=== PATIENT | male | born 1945 | race Caucasian/White ===

== ENCOUNTER 2019-09-04 16:09 | Inpatient (IN) | payer OTHER, SELFPAY ==
[2019-09-04] VITALS (7 sets, daily range): BP systolic 120–139; BP diastolic 44–72; PULSE 54–68; RESP 16–20; TEMP 35.9–36.8; O2SAT 95–100; BMI 34.7
--- NOTE | ~2019-09-04 | XR_ITS ---
EXAMINATION: XR chest 2V 09/04/2019 16:47 INDICATION: Chest palpitations and tachycardia. PROCEDURE: AP and lateral views of the chest COMPARISON: Comparison to multiple prior studies sequentially, with oldest reviewed study dated 08/26. FINDINGS: The lungs are clear. Mild cardiomegaly. There are no pleural effusions. There is no pneumo thorax suspected. IMPRESSION: 1: NO ACUTE CARDIOPULMONARY DISEASE. Reviewed, dictated and finalized at location A.
--- NOTE | ~2019-09-04 | US_ITS ---
EXAMINATION: US venous doppler [facility] DATE: 09/05/2019 14:33 INDICATION: Lower limb swelling. TECHNIQUE: Grayscale ultrasound images without and with compression and Doppler ultrasound images of the bilateral lower extremity veins were obtained. COMPARISON: Ultrasound 09/26/2014 FINDINGS: The visualized portions of right common femoral vein, profunda (deep) femoral vein, femoral vein, pop liteal vein, peroneal veins, posterior tibial veins, and greater saphenous vein outflow are patent. The visualized portions of left common femoral vein, profunda femoral vein, femoral vein, popliteal v ein, peroneal veins, posterior tibial veins, and greater saphenous vein outflow are patent. IMPRESSION: 1. No deep venous thrombosis. Reviewed, dictated and finalized at location A.
--- NOTE | 2019-09-04 16:10 | ECG_ITS ---
Measurements Intervals Holt Rate: 61 P: 56 MA: 246 QRS: -3 QRSD: 114 T: 43 QT: 399 QTc: 404 Interpretive Statements SINUS RHYTHM WITH FIRST DEGREE AV BLOCK INTRAVENTRICULAR CONDUCTION DELAY DELAYED PRECORDIAL R/S TRANSITION ABNORMAL ECG Electronically Signed On 09-05-2019 7:15:39 CDT by Bharathi Dailey D.O.
[2019-09-04 16:28] LABS: Basophils Percent Auto 0.2 % (0.2-1.2); Eosinophils Absolute Auto 0.1 K/mm3 (0-0.3); Eosinophils Percent Auto 0.7 % (0-4.4); Hematocrit 37.5 % (42.0-52.0); Hemoglobin 11.8 g/dL (14.0-18.0); Immature Granulocyte Percent A 0.6 % (0-0.5); Lymphocytes Absolute Auto 5.33 K/mm3 (0.9-3.2); Lymphocytes Percent Auto 30.7 % (18.3-44.2); Mean Corpuscular HGB Conc 31.5 g/dl (32-36); Mean Corpuscular Hemoglobin 31.8 pg (26-34); Mean Corpuscular Volume 101.1 fl (80-100); Mean Platelet Volume 11.2 fl (7.4-10.4); Monocytes Absolute Auto 1.1 K/mm3 (0.1-0.6); Monocytes Percent Auto 6.1 % (2.6-8.5); Neutrophils Absolute Auto 10.7 K/mm3 (1.3-6.7); Neutrophils Percent Auto 61.7 % (45.5-73.1); Platelet Count Result 216 k/mm3 (150-375); Red Blood Count 3.71 M/mm3 (4.6-6.20); White Blood Count 17.4 K/mm3 (4.5-10.0)
[2019-09-04 16:41] LABS: INR 1.1; Partial Thromboplastin Time 28.8 SECONDS (22.3-36.8)
[2019-09-04 16:42] LABS: Blood Urea Nitrogen 65 mg/dL (9-20); Calcium 9.1 mg/dL (8.4-10.2); Carbon Dioxide 22 mmol/L (22-30); Chloride 106 mmol/L (98-107); Estimated CRCL calculation 45 ml/min; Estimated Glomerular Filt Rate 43; Glucose 180 mg/dL (75-110); Sodium 138 mmol/L (137-145)
[2019-09-04 16:57] LABS: Troponin I 0.038 ng/mL (0.000-0.034)
--- NOTE | 2019-09-04 17:48 | ED.GENADULT ---
HPI - General Adult General Chief complaint: Recheck/Abnormal Lab/Rx Stated complaint: elevated HR Time Seen by Provider: 09/04/19 17:38 Source: patient and family Limitations: no limitations History of Present Illness HPI narrative: 73-year-old with a history of hypertension, diabetes, CAD, obstructive sleep apnea, hypercholesteremia, morbid obesity here with complaints of palpitations since this afternoon. Patient states that he was sitting in the chair and took hyoscyamine for bladder spasm soon after his heart started racing and his heart rate was 150. Also complained of minor chest discomfort and mild shortness of breath. However by the time he came to the ER symptoms subsided. He also mentions that he was on metoprolol 50 mg twice a day which they have tapered down to 12.5 mg twice a day as his heart rate was in high 30s. He presently denies any fever or chills. He also mentions that he is scheduled to see Dr. Sarabia tomorrow for catheter change. Onset (ago): hour(s) (4) Location: chest Radiation: non-radiation Severity: moderate Associated symptoms: denies other symptoms Related Data Home Medications Medication Instructions Recorded Confirmed aspirin 81 mg tablet,delayed 81 mg PO DAILY 05/10/19 08/19/19 release nitroglycerin 0.4 mg sublingual 0.4 mg SUBLINGUAL Q5M 05/10/19 08/19/19 tablet omega-3 fatty acids 1,000 mg 1,000 mg PO DAILY 05/10/19 08/19/19 capsule Allergies Allergy/AdvReac Type Severity Reaction Status Date / Time codeine AdvReac Unknown Unknown Verified 05/14/19 08:02 Review of Systems Review of Systems: All systems reviewed & are unremarkable except as noted in HPI and below Constitutional: Constitutional: Reports as per HPI Eyes: Eyes: Reports no additional eye complaints ENT: Reports system reviewed and no additional complaints, except as documented Cardiovascular: Cardiovascular: Reports as per HPI Respiratory: Respiratory: Reports as per HPI Gastrointestinal: Gastrointestinal: Reports no additional gastrointestinal complaints Genitourinary: Genitourinary: Reports as per HPI Musculoskeletal: Musculoskeletal: Reports no additional musculoskeletal complaints Integumentary/Breasts: Skin/Breast: Reports system reviewed and no additional complaints, except as docu Neurologic: Reports system reviewed and no additional complaints, except as documented [facility] Surgical History Surgical History H/O heart artery stent H/O hernia repair Status post bariatric surgery Family History Family History Mother Family history of cardiovascular disease Family history of malignant neoplasm Other Diabetes mellitus Hypertension Social History Social History Smoking status: Former smoker Alcohol intake: never Gender identity (if verbalized by the patient): Male Exam Narrative: Exam Narrative: GENERAL: Well-appearing, well-nourished, and in no acute distress. HEAD: Normocephalic, atraumatic. EYES: PERRLA and EOMI. ENT: Nares clear, no rhinorrhea or epistaxis. Mucous membranes moist. NECK: Supple. CHEST: Clear to auscultation. No respiratory distress. HEART: Regular rate and rhythm. No murmur heard. Normal peripheral pulses. ABDOMEN: Soft, non tender, non distended, normal active bowel sounds. EXTREMITIES: Normal range of motion. No edema. SKIN: Warm, dry, no rash. NEURO: No focal deficits. Alert and oriented x3. PSYCH: Normal mood and affect. Course Course Emergency Course: Inform patient about his lab work, EKG findings. Will admit to the hospital consult cardiology. Vital Signs Vital signs: Vital Signs Temperature 36.7 C 09/04/19 16:12 Pulse Rate 66 09/04/19 16:12 Respiratory Rate 18 09/04/19 16:12 Blood Pressure 127/45 L 09/04/19 16:12 Pulse Oximetry 100 09/04/19 16:12 Temper
[2019-09-04 19:33] LABS: Add Urine Microscopic? YES; Appearance Urine Cloudy (Clear); Bacteria Urine Trace /hpf; Bilirubin Urine Negative (Negative); Blood Urine 2+ (Negative); Glucose Urine UA Negative (Negative); Ketones Urine Negative (Negative); Leukocyte Esterase Ur 2+ LEU/UL (Negative); Mucus Urine Rare /lpf; Nitrate Urine Negative (Negative); Protein Urine 2+ mg/dL (Negative); Specific Grav Ur 1.013 (1.001-1.035); Squamous Epithelial Cell Urine Rare /hpf (Few); Uric Acid Crystals Urine Many /hpf; Urobilinogen Urine Negative mg/dL (<2.0); WBC Urine >75 /hpf
[2019-09-04 19:35] LABS: Color Urine Amber (Yellow)
--- NOTE | 2019-09-04 20:08 | PM.IMHP ---
H&P: HPI History of Present Illness Chief complaint: Palpitations this afternoon++ Narrative: This is a pleasant 74 year old Diabetic male with known CAD+ s/p #1 RI s/p #1 stent who presented to the hospital today with a complaint of palpitations today and a heart rate of 149 bpm. The patient was sitting around 1:30 pm when he suddenly started to develop palpitations and his took his blood pressure and pulse. She found that his blod pressure was soft and that his hear rate was at 149 bpm. The patient also complained of heart burn at that time. He reports that he started taking hyoscyamine 0.125 mg which was prescribed to him last year as he has had urinary frequency and dysuria over the past 3 days. He took a dose this morning and another dose around 12:30 pm. He reports that he had been tolerating the medication well over the past couple of days. He called his Specialty Person, Dr. Guido this afternoon who referred him to the ER. The patient has been seeing Urology and has a urinary catheter in place. He reports that he is scheduled for a right sided hernia repair in the next week. Tonight he also reports RLE swelling and redness that has worsened over the past few days. He denies any fever, chills, shortness of breath, abdominal pain, dizziness, passing out, or rectal bleeding. The patient was found to have a mildly elevated troponin in the ER and we have been asked to admit the patient to the hospital for further care. He has no other symptoms. Review of Systems Review of Systems: All systems reviewed & are unremarkable except as noted in HPI and below PMFSH Past Medical History Medical History CAD (coronary artery disease) Diabetes mellitus History of RI (myocardial infarction) HTN (hypertension) with goal to be determined Hyperlipidemia Surgical History Surgical History H/O heart artery stent H/O hernia repair Status post bariatric surgery Family History Family History Mother Family history of cardiovascular disease Family history of malignant neoplasm Other Diabetes mellitus Hypertension Social History Social History Smoking packs per day: 1 Smoking cigarettes per day: 20.0 Years smoked: 30 Smoking pack-years: 30.00 Smoking status: Former smoker Tobacco type: pipe Alcohol intake: never Substance use: never Substance use type: does not use Gender identity (if verbalized by the patient): Male Spiritual care concerns: No Meds Home Medications and Allergies Home Medications Medication Instructions Recorded Confirmed Type insulin syringe-needle U-100 0.3 #300 each 04/10/19 08/19/19 Rx mL 31 gauge x 15/64 aspirin 81 mg tablet,delayed 81 mg PO DAILY 05/10/19 08/19/19 History release nitroglycerin 0.4 mg sublingual 0.4 mg SUBLINGUAL Q5M 05/10/19 08/19/19 History tablet omega-3 fatty acids 1,000 mg 1,000 mg PO DAILY 05/10/19 08/19/19 History capsule irbesartan 300 1 tablet PO DAILY #90 tablet 06/20/19 08/19/19 Rx mg-hydrochlorothiazide 12.5 mg tablet amlodipine 5 mg tablet See Rx Instructions .ROUTE 07/30/19 08/19/19 Rx .COMPLEX #90 tablet insulin NPH-regular 70-30 U-100 15 unit SUB-Q DAILY #15 ml 08/19/19 08/19/19 Rx insulin 100 unit/mL subcutaneous pen metoprolol tartrate 25 mg tablet 12.5 mg PO DAILY #30 tablet 08/19/19 08/19/19 Rx Allergies Allergy/AdvReac Type Severity Reaction Status Date / Time codeine AdvReac Unknown Unknown Verified 05/14/19 08:02 Vital Signs Vital Signs - 24 hr 09/04/19 16:12 09/04/19 19:19 Temperature 36.7 C Pulse Rate 66 Respiratory Rate 18 Blood Pressure 127/45 L Pulse Oximetry 100 99 Exam Const: General: cooperative, no acute distress, alert and awake Nutritional Deneen
--- NOTE | 2019-09-04 20:28 | ADMGEN ---
This patient, Josiah Flores, was admitted to IMU Room 201-01. Patient/family oriented to hospital policies and general routines including ID bracelet, bed and alarms, visiting hours, pain management, procedures, bathroom and other care routines, personal items, smoking policy, room service/diet, and visiting hours. Valuables list has been completed. Information on how to activate the Rapid Response Team has been discussed. Patient/Family are encouraged to report perceived risks to care and to ask questions if they do not understand what they are told or what they should do.
[2019-09-04] MEDS: SODIUM CHLORIDE 0.9% IV 1,000 ML 100 ML IV CONT (21:06)
[2019-09-04 22:07] LABS: Troponin I 0.288 ng/mL (0.000-0.034)
[2019-09-05] VITALS (16 sets, daily range): BP systolic 108–136; BP diastolic 38–54; PULSE 47–60; RESP 12–18; TEMP 35.8–37.1; O2SAT 96–98
[2019-09-05 01:06] LABS: Troponin I 0.394 ng/mL (0.000-0.034)
[2019-09-05 06:09] LABS: Basophils Percent Auto 0.2 % (0.2-1.2); Eosinophils Absolute Auto 0.2 K/mm3 (0-0.3); Eosinophils Percent Auto 0.9 % (0-4.4); Hematocrit 31.5 % (42.0-52.0); Immature Granulocyte Absolute 0.07 K/mm3 (0.00-0.031); Immature Granulocyte Percent A 0.4 % (0-0.5); Lymphocytes Absolute Auto 6.35 K/mm3 (0.9-3.2); Lymphocytes Percent Auto 40.2 % (18.3-44.2); Mean Corpuscular HGB Conc 31.7 g/dl (32-36); Mean Corpuscular Hemoglobin 31.5 pg (26-34); Mean Corpuscular Volume 99.4 fl (80-100); Mean Platelet Volume 11.7 fl (7.4-10.4); Monocytes Absolute Auto 1.3 K/mm3 (0.1-0.6); Monocytes Percent Auto 8.2 % (2.6-8.5); Neutrophils Absolute Auto 7.9 K/mm3 (1.3-6.7); Neutrophils Percent Auto 50.1 % (45.5-73.1); Platelet Count Result 208 k/mm3 (150-375); Red Blood Count 3.17 M/mm3 (4.6-6.20); Red Cell Distribution Width 11.8 % (11.5-14.5); White Blood Count 15.8 K/mm3 (4.5-10.0)
[2019-09-05] MEDS: SODIUM CHLORIDE 0.9% IV 1,000 ML 100 ML IV CONT (06:37)
[2019-09-05 06:41] LABS: Blood Urea Nitrogen 58 mg/dL (9-20); Calcium 8.5 mg/dL (8.4-10.2); Carbon Dioxide 24 mmol/L (22-30); Chloride 108 mmol/L (98-107); Estimated CRCL calculation 59 ml/min; Estimated Glomerular Filt Rate 59; Glucose 150 mg/dL (75-110); Potassium 4.1 mmol/L (3.4-5.0); Sodium 136 mmol/L (137-145)
[2019-09-05 08:28] LABS: Glucose Point of Care 127 (65-105)
--- NOTE | 2019-09-05 10:02 | WPDURCON ---
Assessment and Plan Assessment and plan (1) Status post bariatric surgery: Code(s): Z98.84 - Bariatric surgery status Status: Acute (2) BPH w/o urinary obs/LUTS: Code(s): N40.0 - Benign prostatic hyperplasia without lower urinary tract symptoms Status: Acute (3) Prostate cancer: Code(s): C61 - Malignant neoplasm of prostate Status: Acute (4) Urinary retention: Code(s): R33.9 - Retention of urine, unspecified Status: Acute (5) Right inguinal hernia: Code(s): K40.90 - Unilateral inguinal hernia, without obstruction or gangrene, not specified as recurrent Status: Acute Assessment and Plan: Agree with ceftriaxone pending urine culture for a probable urinary tract infection. Continue with indwelling catheter until following his impending inguinal hernia repair. The current Macedo catheter was just changed about 10 days ago and does not need to be changed again at this point Urology Consult Note HPI Date Seen: 09/05/19 Requesting Physician: Russ España MD Primary Care Provider: Rambo Holland DO Consult Narrative Narrative: Josiah Flores is a 74 year old male Who is very well known to me with a history of prostate cancer and urinary retention. The retention results from underlying BPH complicated by herniation of his bladder into a right inguinal hernia. Definitive management has been delayed because obesity the required gastric bypass surgery with subsequent weight loss before proceeding with an inguinal herniorrhaphy. He is now scheduled for that hernia repair next week at [facility]. While this is been going on for managing his retention with a chronic Macedo and monthly catheter changes in the office. He is now admitted with, what appears to be, a urinary tract infection with sepsis. Review of Systems Cardiovascular: Cardiovascular: Denies chest pain, Denies lightheadedness, Denies palpitations and Denies dyspnea Respiratory: Respiratory: Denies dyspnea Gastrointestinal: Gastrointestinal: Denies diarrhea, Denies nausea and Denies vomiting Genitourinary: Genitourinary: Denies hematuria and Denies dysuria Endocrine: Endocrine: Denies palpitations PMFSH Past Medical History Medical History CAD (coronary artery disease) Diabetes mellitus History of SC (myocardial infarction) HTN (hypertension) with goal to be determined Hyperlipidemia Surgical History Surgical History H/O heart artery stent H/O hernia repair Status post bariatric surgery Family History Family History Mother Family history of cardiovascular disease Family history of malignant neoplasm Other Diabetes mellitus Hypertension Social History Social History Smoking packs per day: 1 Smoking cigarettes per day: 20.0 Years smoked: 30 Smoking pack-years: 30.00 Smoking status: Former smoker Tobacco type: pipe Alcohol intake: never Substance use: never Substance use type: does not use Gender identity (if verbalized by the patient): Male Spiritual care concerns: No Meds Home Medications and Allergies Home Medications Medication Instructions Recorded Confirmed Type insulin syringe-needle U-100 0.3 #300 each 04/10/19 09/05/19 Rx mL 31 gauge x 15/64 aspirin 81 mg tablet,delayed 81 mg PO DAILY 05/10/19 09/04/19 History release nitroglycerin 0.4 mg sublingual 0.4 mg SUBLINGUAL Q5M PRN MDD 3 05/10/19 09/04/19 History tablet tabs irbesartan 300 1 tablet PO DAILY #90 tablet 06/20/19 09/04/19 Rx mg-hydrochlorothiazide 12.5 mg tablet insulin NPH-regular 70-30 U-100 15 unit SUB-Q DAILY #15 ml 08/19/19 09/04/19 Rx insulin 100 unit/mL subcutaneous pen amlodipine 5 mg PO DAILY 09/04/19 09/04/19
[2019-09-05] MEDS: AMLODIPINE BESYLATE 5 MG TABLET PO (10:12)
[2019-09-05] MEDS: METOPROLOL SUCCINATE EXT REL 12.5 MG TABCR PO (10:12)
[2019-09-05] MEDS: MULTIVITAMINS /C LUTEIN (CENTRUM SILVER) TABLET *BKC 1 TAB PO (10:12)
[2019-09-05] MEDS: ASPIRIN 81 MG ENTERIC TABLET PO (10:12)
[2019-09-05] MEDS: VITAMIN B COMPLEX CAPSULE 1 CAP PO (10:12)
[2019-09-05] MEDS: TOLNAFTATE 1% POWDER 45 GM BTL 1 APPLIC TOPICAL ×2 (10:13→19:48)
[2019-09-05 12:36] LABS: Glucose Point of Care 127 (65-105)
--- NOTE | 2019-09-05 13:23 | PM.PNCARD ---
Subjective Date/time seen: Date of Service: 09/05/19 13:23 This is a cardiology consultation at the request of Review of Systems Review of Systems: All systems reviewed & are unremarkable except as noted in HPI and below Constitutional: Constitutional: Reports as per HPI and Reports no additional constitutional complaints Eyes: Eyes: Reports as per HPI and Reports no additional eye complaints ENT: Reports system reviewed and no additional complaints, except as documented and Reports as per HPI Cardiovascular: Cardiovascular: Reports as per HPI and Reports no additional cardiovascular complaints Respiratory: Respiratory: Reports as per HPI and Reports no additional respiratory complaints Gastrointestinal: Gastrointestinal: Reports as per HPI and Reports no additional gastrointestinal complaints Genitourinary: Genitourinary: Reports no additional male genitourinary complaints and Reports as per HPI Musculoskeletal: Musculoskeletal: Reports no additional musculoskeletal complaints and Reports as per HPI Integumentary/Breasts: Skin/Breast: Reports system reviewed and no additional complaints, except as docu and Reports as per HPI Neurologic: Reports system reviewed and no additional complaints, except as documented and Reports as per HPI Psychiatric: Psychiatric: Reports no additional psychiatric complaints and Reports as per HPI Endocrine: Endocrine: Reports no additional endocrine complaints and Reports as per HPI Hematologic/Lymphatic: Hematologic/Lymphatic: Reports no additional hematologic/lymphatic complaints and Reports as per HPI Allergic/Immunologic: Allergic/Immunologic: Reports no additional allergic/immunologic complaints and Reports as per HPI Objective Data Vital Signs Vital Signs: Vital Signs - 24 hr 09/04/19 16:12 09/04/19 19:19 09/04/19 20:23 Temperature 36.7 C Pulse Rate 66 68 Respiratory Rate 18 20 Blood Pressure 127/45 L 123/72 Pulse Oximetry 100 99 96 09/04/19 20:27 09/04/19 21:00 09/04/19 22:00 Temperature 35.9 C L Pulse Rate 64 64 56 L Respiratory Rate 16 Blood Pressure 139/44 L Pulse Oximetry 99 09/04/19 23:10 09/05/19 00:00 09/05/19 02:00 Temperature 36.8 C Pulse Rate 54 L 56 L 57 L Respiratory Rate 16 Blood Pressure 120/47 L Pulse Oximetry 95 09/05/19 03:30 09/05/19 04:00 09/05/19 06:00 Temperature 36.7 C Pulse Rate 53 L 59 L 57 L Respiratory Rate 18 Blood Pressure 108/38 L Pulse Oximetry 96 09/05/19 08:00 09/05/19 10:00 09/05/19 10:12 Temperature 36.1 C L Pulse Rate 53 L 59 L 56 L Respiratory Rate 12 Blood Pressure 136/45 L Pulse Oximetry 97 09/05/19 12:00 Temperature 35.8 C L Pulse Rate 50 L Respiratory Rate 12 Blood Pressure 111/54 L Pulse Oximetry 98 Intake/Output Intake/Output: Intake & Output 09/02/19 09/03/19 09/04/19 09/05/19 23:59 23:59 23:59 23:59 Intake Total 50 1840 Output Total 1700 Balance 50 140 Meds/Results Medications: Active Medications Generic Name Dose Route Start Last Admin Trade Name Freq PRN Reason Stop Dose Admin Acetaminophen 650 mg 09/04/19 18:29 Tylenol Tablet PO Q4H PRN Mild Pain (1-3) or Fever Amlodipine Besylate 5 mg 09/05/19 09:00 09/05/19 10:12 Norvasc PO 5 mg DAILY RADHA Administration Aspirin 81 mg 09/05/19 09:00 09/05/19 10:12 Aspirin Ec PO 81 mg DAILY RADHA Administration Dextrose 12.5 gm 09/04/19 20:31 Dextrose 50% Syringe IV PUSH PRN PRN Hypoglycemia Protocol Glucagon 1 mg 09/04/19 20:31 Glucagon For Inj IM PRN PRN Hypoglycemia Protocol Glucose 15 gm 09/04/19 20:31 Glutose 15 PO PRN PRN Hypoglycemia Protocol Sodium Chloride 1,000 mls @ 100 mls/hr 09/04/19 18:30 09/05/19 06:37 Normal Saline Iv IV CONT 100 mls/hr .Q10H RADHA Administration Ceftriaxone Sodium/Dextrose 1 gm in 50 mls @ 100 mls/hr 09/05/19 18:00 Rocephin 1 Gm/D5w 50 M
--- NOTE | 2019-09-05 13:41 | PM.CNCAR ---
Assessment and Plan Assessment and plan (1) Tachycardia-bradycardia syndrome: Code(s): I49.5 - Sick sinus syndrome Status: Acute Assessment and Plan: Continue Toprol XL 12.5 mg daily. Patient bradycardic get asymptomatic and otherwise hemodynamically stable at this time. Lengthy discussion held with regards to management strategies for tachycardia bradycardia syndrome. Explained potential need for pacemaker particularly if symptomatic bradycardia, prolonged pauses/high-grade AV blocks are noted and/or he experiences recurrent or persistent tachyarrhythmia which warrant direct management which he tolerates poorly due to bradycardia. We will make every attempt to avoid pacemaker implantation particular given concern for underlying infection. Close clinical observation. 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 Further recommendations to follow based on patient's response to therapy and clinical course. (2) Atrial flutter, paroxysmal: Code(s): I48.92 - Unspecified atrial flutter Status: Acute Assessment and Plan: As above. We discussed embolic stroke risk associated with atrial flutter and recommendations for systemic anticoagulation particularly if recurrence. Will hold off for now, however, if recurrence he will require anticoagulation longer term. CHADS2 Vasc score 3. Cont ASA for now. (3) Elevated troponin I level: Code(s): R79.89 - Other specified abnormal findings of blood chemistry Status: Acute Assessment and Plan: Mild elevation without anginal symptoms yet a somewhat concerning trend which could be explained by acute renal failure and several hours of persistent tachyarrhythmia with underlying CAD. I do not feel patient has had a primary myocardial infarction and/or plaque rupture and would be more likely consistent with a type 2 infarct (non-CT troponin elevation). Continue aspirin. DVT prophylaxis. Recheck troponin in a.m. with 12 lead EKG. Depending on patient's clinical course will discuss need for noninvasive ischemic evaluation under preoperative basis. He had a recent 2D echocardiogram in our office within the past month or so. Will not repeat at this time. (4) Coronary artery disease involving [place] coronary artery of [place] heart: Code(s): I25.10 - Atherosclerotic heart disease of [place] coronary artery without angina pectoris Status: Acute Assessment and Plan: As above. Continue aggressive medical therapy with aspirin, statin beta-catracho therapy. ARB held due to acute renal failure from presentation. Depending upon clinical course will discuss utility of noninvasive ischemic evaluation given troponin elevation and patient's prior history. Will check lower extremity venous Doppler due to worsening right lower extremity edema and redness of the skin. Clinically, I do not suspect he has a DVT although patient very concerned in this regard. (5) Acute renal failure: Qualifiers: Acute renal failure type: unspecified Qualified Code(s): N17.9 - Acute kidney failure, unspecified Code(s): N17.9 - Acute kidney failure, unspecified Status: Acute Assessment and Plan: Improving with IV fluids. Continue to monitor closely. (6) Essential hypertension: Code(s): I10 - Essential (primary) hypertension Status: Chronic Assessment and Plan: Stable at present. History of Present Illness History of Present Illness Consult date/time: Date of service: 09/05/19 13:41 This is a cardiology consultation at the request of Dr. Stanley for my opinion regarding palpitations and tachycardia. Requesting physician: Hugo Stanley MD Consult reason: Other (Palpitations) Reason For Visit: Palpitations this afternoon++ Narrative: Patient is a very pleasant 74-year-old male with a past medical history significant for prostate cancer and urinary retention, BPH, morbid obesity status post bariatric surgery with subsequent 120 l
[2019-09-05 16:30] LABS: Glucose Point of Care 152 (65-105)
--- NOTE | 2019-09-05 16:35 | PM.IMPN ---
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 Patient with bradycardia except 1 episode of probably atrial flutter. Toprol XL resumed in the hopes of suppressing further abnormal supraventricular rhythms. Continue to monitor on telemetry. No plans for long-term anticoagulation at this time. Pacemaker being considered if situation does not improve. Appreciate Cardiology input. (2) Atrial flutter, paroxysmal: Code(s): I48.92 - Unspecified atrial flutter Status: Acute Assessment and Plan: CHADS2-Vasc score 3. No anticoagulation at this time. Toprol XL resumed. Continue aspirin. Appreciate Cardiology input. (3) Elevated troponin I level: Code(s): R79.89 - Other specified abnormal findings of blood chemistry Status: Acute Assessment and Plan: Troponin has climbed to 0.4. Likely secondary to tachycardia. Patient states he had a stress test prior to his bariatric surgery last fall. EKG not showing any acute findings except for delayed transition. Cardiology following. Consider echocardiogram to assess for wall motion abnormalities. Toprol XL resumed. Continue aspirin. Continue telemetry. (4) Acute renal failure: Qualifiers: Acute renal failure type: unspecified Qualified Code(s): N17.9 - Acute kidney failure, unspecified Code(s): N17.9 - Acute kidney failure, unspecified Status: Acute Assessment and Plan: On admission. On repeat, creatinine is 1.2 today after gentle hydration. Baseline creatinine 1.0-1.2. Continue to monitor renal function and avoid nephrotoxic agents. Renally dose medications. Stop IV fluids. (5) Catheter-associated urinary tract infection: Qualifiers: Encounter type: initial encounter Indwelling urinary catheter type: indwelling urethral catheter Qualified Code(s): T83.511A - Infection and inflammatory reaction due to indwelling urethral catheter, initial encounter; N39.0 - Urinary tract infection, site not specified Code(s): T83.511A - Infection and inflammatory reaction due to indwelling urethral catheter, initial encounter; N39.0 - Urinary tract infection, site not specified Status: Acute Assessment and Plan: UA noted. Urine and blood cultures pending. White count 59423 on admission and improved today. Continue IV Rocephin. Follow up on culture results. (6) Macrocytic anemia: Code(s): D53.9 - Nutritional anemia, unspecified Status: Acute Assessment and Plan: Hemoglobin 11.8 on admission. On recheck it is down to 10. Baseline hemoglobin running mostly 11-12 range. No signs of acute blood loss. Continue to monitor H&H. Transfuse as needed. (7) Leukocytosis: Qualifiers: Leukocytosis type: unspecified Qualified Code(s): D72.829 - Elevated white blood cell count, unspecified Code(s): D72.829 - Elevated white blood cell count, unspecified Status: Acute Assessment and Plan: May be secondary to acute UTI. Antibiotics have been started for the UTI. White count trending downward. Continue to follow. (8) Edema of right lower extremity: Code(s): R60.0 - Localized edema Status: Acute Assessment and Plan: Edema is minimal at this time. Bilateral lower extremity Doppler is negative for DVT. Edema could be made worse by the ALAN and/or amlodipine. Continue to monitor. (9) Type 2 diabetes mellitus with diabetic mononeuropathy, with long-term current use of insulin: Code(s): E11.41 - Type 2 diabetes mellitus with diabetic mononeuropathy; Z79.4 - terminal gauger (current) use of insulin Status: Chronic Assessment and Plan: Blood glucose reviewed on 09/05/2019. Glucose is well controlled. Continue close monitoring with Accu-Cheks covering with slid
[2019-09-05 20:59] LABS: Glucose Point of Care 147 (65-105)
[2019-09-06] VITALS (18 sets, daily range): BP systolic 118–139; BP diastolic 36–52; PULSE 44–91; RESP 12–20; TEMP 35.8–36.9; O2SAT 95–100
[2019-09-06 04:40] LABS: Hemoglobin 9.9 g/dL (14.0-18.0); Mean Corpuscular HGB Conc 31.9 g/dl (32-36); Mean Corpuscular Hemoglobin 31.8 pg (26-34); Mean Corpuscular Volume 99.7 fl (80-100); Platelet Count Result 201 k/mm3 (150-375); Red Blood Count 3.11 M/mm3 (4.6-6.20); Red Cell Distribution Width 11.9 % (11.5-14.5); White Blood Count 14.6 K/mm3 (4.5-10.0)
[2019-09-06 04:58] LABS: Alanine Aminotransferase 14 U/L (4-50); Albumin Level 2.9 g/dL (3.5-5.1); Alkaline Phosphatase 70 U/L (38-126); Aspartate Amino Transferase 19 U/L (17-59); Bilirubin,Total 0.5 mg/dL (0.2-1.3); Blood Urea Nitrogen 53 mg/dL (9-20); Calcium 8.6 mg/dL (8.4-10.2); Carbon Dioxide 23 mmol/L (22-30); Chloride 112 mmol/L (98-107); Estimated CRCL calculation 60 ml/min; Estimated Glomerular Filt Rate 59; Glucose 111 mg/dL (75-110); Phosphorus 3.6 mg/dL (2.5-4.5); Potassium 4.3 mmol/L (3.4-5.0); Sodium 139 mmol/L (137-145)
[2019-09-06 05:19] LABS: Troponin I 0.069 ng/mL (0.000-0.034)
[2019-09-06 05:21] LABS: Iron 43 ug/dL (49-181)
[2019-09-06 05:31] LABS: Percent Iron Saturation 24 % (20-50)
[2019-09-06 06:20] LABS: Folic Acid > 20.0 ng/mL (2.76->20)
--- NOTE | 2019-09-06 07:00 | ECG_ITS ---
Measurements Intervals [place] Rate: 48 P: 48 NE: 245 QRS: -3 QRSD: 113 T: 0 QT: 454 QTc: 409 Interpretive Statements SINUS BRADYCARDIA WITH FIRST DEGREE AV BLOCK INTRAVENTRICULAR CONDUCTION DELAY BORDERLINE ST-T WAVE ABNORMALITY- INF/LAT LEADS ABNORMAL ECG Electronically Signed On 09-06-2019 9:24:10 CDT by Bharathi Dailey D.O.
[2019-09-06 08:34] LABS: Glucose Point of Care 100 (65-105)
[2019-09-06] MEDS: VITAMIN B COMPLEX CAPSULE 1 CAP PO (08:51)
[2019-09-06] MEDS: MULTIVITAMINS /C LUTEIN (CENTRUM SILVER) TABLET *BKC 1 TAB PO (08:52)
[2019-09-06] MEDS: AMLODIPINE BESYLATE 5 MG TABLET PO (08:52)
[2019-09-06] MEDS: TOLNAFTATE 1% POWDER 45 GM BTL 1 APPLIC TOPICAL ×2 (08:52→21:35)
[2019-09-06] MEDS: ASPIRIN 81 MG ENTERIC TABLET PO (08:52)
[2019-09-06] MEDS: METOPROLOL SUCCINATE EXT REL 12.5 MG TABCR PO (09:58)
[2019-09-06 11:53] LABS: Glucose Point of Care 132 (65-105)
--- NOTE | 2019-09-06 15:29 | PM.IMPN ---
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 Patient with bradycardia except 1 episode of probably atrial flutter. Toprol XL resumed but changed to Amio. Continue to monitor on telemetry. No plans for long-term anticoagulation at this time. Pacemaker being considered if situation does not improve. Appreciate Cardiology input. (2) Atrial flutter, paroxysmal: Code(s): I48.92 - Unspecified atrial flutter Status: Acute Assessment and Plan: CHADS2-Vasc score 3. No anticoagulation at this time. Toprol XL was resumed but still bradycardic. Still having episodes of runs of AFlutter. Toprol stopped and Amio started. Continue aspirin. Appreciate Cardiology input. (3) Elevated troponin I level: Code(s): R79.89 - Other specified abnormal findings of blood chemistry Status: Acute Assessment and Plan: Troponin has climbed to 0.4. Likely secondary to tachycardia. Patient states he had a stress test prior to his bariatric surgery last fall. EKG not showing any acute findings except for delayed transition. Cardiology following. Consider echocardiogram to assess for wall motion abnormalities. Toprol XL held nnow due to bradycardia. Continue aspirin. Continue telemetry. (4) Acute renal failure: Qualifiers: Acute renal failure type: unspecified Qualified Code(s): N17.9 - Acute kidney failure, unspecified Code(s): N17.9 - Acute kidney failure, unspecified Status: Acute Assessment and Plan: Cr 1.6 on admission. On repeat, creatinine dropped to 1.2 after gentle hydration and stable on repeat. Baseline creatinine 1.0-1.2. Continue to monitor renal function and avoid nephrotoxic agents. Renally dose medications. (5) Catheter-associated urinary tract infection: Qualifiers: Encounter type: initial encounter Indwelling urinary catheter type: indwelling urethral catheter Qualified Code(s): T83.511A - Infection and inflammatory reaction due to indwelling urethral catheter, initial encounter; N39.0 - Urinary tract infection, site not specified Code(s): T83.511A - Infection and inflammatory reaction due to indwelling urethral catheter, initial encounter; N39.0 - Urinary tract infection, site not specified Status: Acute Assessment and Plan: UA noted. BCx NGTD. UCx growing Enterobacter sensitive to Rocephin. White count slowly trending down. Continue IV Rocephin Day 3. (6) Macrocytic anemia: Code(s): D53.9 - Nutritional anemia, unspecified Status: Acute Assessment and Plan: Hemoglobin 11.8 on admission. On recheck it is down to 10 and stable. Baseline hemoglobin running mostly 11-12 range. No signs of acute blood loss. Continue to monitor H&H. Transfuse as needed. (7) Leukocytosis: Qualifiers: Leukocytosis type: unspecified Qualified Code(s): D72.829 - Elevated white blood cell count, unspecified Code(s): D72.829 - Elevated white blood cell count, unspecified Status: Acute Assessment and Plan: May be secondary to acute UTI. Antibiotics have been started for the UTI. White count slowly trending downward. Continue to follow. (8) Edema of right lower extremity: Code(s): R60.0 - Localized edema Status: Acute Assessment and Plan: Edema is minimal. Bilateral lower extremity Doppler is negative for DVT. Edema could be made worse by the ALAN and/or amlodipine. Continue to monitor. (9) Type 2 diabetes mellitus with diabetic mononeuropathy, with long-term current use of insulin: Code(s): E11.41 - Type 2 diabetes mellitus with diabetic mononeuropathy; Z79.4 - rat exterminator (current) use of insulin Status: Chronic Assessment and Plan: Blood glucose reviewed on 09/06/2019. Glucose is
--- NOTE | 2019-09-06 15:34 | PM.PNCARD ---
Progress Note: A&P Additional Plan Will discontinue the beta-catracho as the sinus rate is rather slow and it is not reasonable to expect control his tachyarrhythmias with beta-blockers or antiarrhythmic with beta-blockade activity. Given his history of coronary artery disease and previous infarction type 1 C antiarrhythmic are to be avoided Will start amiodarone orally. Understand that this may take some time to achieve desired therapeutic Parres regarding his tachyarrhythmias. At this point the patient is bradycardic but asymptomatic and does not require implantation of a pacemaker device. This however may change if sinus Kevin arrhythmias or pauses that are problematic/symptomatic began to occur. Josiah Guido MD [facility] Subjective Date/time seen: 09/06/19 15:34 Interval history: Follow-up visit in this 74-year-old man with palpitations, tachyarrhythmias appears to be having paroxysmal atrial flutter. Also has some wide QRS regular tachycardia. Patient is bradycardic when in sinus rhythm had been on metoprolol dosage is now extremely low. History of coronary artery disease remote history of myocardial infarction and percutaneous revascularization. History of morbid obesity with recent bariatric surgery and impressive weight loss Scheduled for inguinal herniorrhaphy as an outpatient next week at [place]. Exam Const: General: comfortable and no acute distress HENMT: Mouth: Yes moist mucous membranes Eyes: Sclera: sclerae normal Pupils: Equal, round and reactive pupils present Neck: Neck: supple and no JVD Thyroid: thyroid normal Carotids: bruit Resp: Effort & Inspection: normal respiratory effort Auscultation: clear to auscultation bilaterally Cardio: Rate: regular rate Rhythm: regular rhythm Heart sounds: Murmur heart sound present systolic II/ and at the base GI: Auscultation: normal bowel sounds Skin: General skin exam: normal color Neuro: Cognition (Neuro): normal cognition Objective Data Vital Signs Vital Signs: Vital Signs - 24 hr 09/05/19 16:00 09/05/19 18:00 09/05/19 19:30 Temperature 35.8 C L 36.6 C Pulse Rate 47 L 57 L 60 Respiratory Rate 12 18 Blood Pressure 119/47 L 121/47 L Pulse Oximetry 96 98 09/05/19 20:00 09/05/19 22:00 09/05/19 23:44 Temperature 37.1 C Pulse Rate 57 L 55 L 58 L Respiratory Rate 18 16 Blood Pressure 124/45 L Pulse Oximetry 96 09/06/19 00:00 09/06/19 02:00 09/06/19 03:10 Temperature 36.9 C Pulse Rate 56 L 55 L 53 L Respiratory Rate 18 20 Blood Pressure 118/45 L Pulse Oximetry 95 09/06/19 04:00 09/06/19 05:54 09/06/19 08:00 Temperature 35.9 C L Pulse Rate 51 L 51 L 69 Respiratory Rate 18 12 Blood Pressure 130/46 L Pulse Oximetry 99 09/06/19 09:58 09/06/19 10:00 09/06/19 11:57 Temperature 35.9 C L Pulse Rate 47 L 47 L 44 L Respiratory Rate 12 Blood Pressure 125/43 L Pulse Oximetry 100 09/06/19 12:00 09/06/19 14:00 Temperature Pulse Rate 44 L 46 L Respiratory Rate 12 Blood Pressure Pulse Oximetry 99 Intake/Output Intake/Output: Intake & Output 09/03/19 09/04/19 09/05/19 09/06/19 23:59 23:59 23:59 23:59 Intake Total 50 3120 840 Output Total 2250 1900 Balance 50 870 -1060 Meds/Results Medications: Active Medications Generic Name Dose Route Start Last Admin Trade Name Raine PRN Reason Stop Dose Admin Acetaminophen 650 mg 09/04/19 18:29 Tylenol Tablet PO Q4H PRN Mild Pain (1-3) or Fever Amiodarone HCl 200 mg 09/06/19 15:35 Pacerone PO DAILY@0800 [facility] Amlodipine Besylate 5 mg 09/05/19 09:00 09/06/19 08:52 Norvasc PO 5 mg DAILY [facility] Administration Aspirin 81 mg 09/05/19 09:00 09/06/19 08:52 Aspirin Ec PO 81 mg DAILY [facility] Administration Dextrose 12.5 gm 09/04/19 20:31 Dextrose 50% Syringe IV PUSH PRN PRN Hypoglycemia Protocol Glucagon 1 mg 09/04/19 20:31 Glucagon For Inj IM PRN PRN
[2019-09-06] MEDS: AMIODARONE HCL 200 MG TABLET PO (16:57)
[2019-09-06 17:35] LABS: Glucose Point of Care 152 (65-105)
[2019-09-06 20:34] LABS: Glucose Point of Care 244 (65-105)
[2019-09-07] VITALS: PULSE 53; PULSE 61; RESP 18; O2SAT 98
[2019-09-07 01:55] VITALS: PULSE 60
[2019-09-07 04:00] VITALS: BP 129/51; PULSE 55; PULSE 57; RESP 18; TEMP 37.1; O2SAT 97
[2019-09-07 04:48] LABS: Hematocrit 30.3 % (42.0-52.0); Hemoglobin 9.8 g/dL (14.0-18.0); Mean Corpuscular HGB Conc 32.3 g/dl (32-36); Mean Corpuscular Hemoglobin 31.9 pg (26-34); Mean Corpuscular Volume 98.7 fl (80-100); Mean Platelet Volume 11.2 fl (7.4-10.4); Platelet Count Result 218 k/mm3 (150-375); Red Blood Count 3.07 M/mm3 (4.6-6.20); Red Cell Distribution Width 11.8 % (11.5-14.5); White Blood Count 13.9 K/mm3 (4.5-10.0)
[2019-09-07 05:06] LABS: Blood Urea Nitrogen 46 mg/dL (9-20); Calcium 8.5 mg/dL (8.4-10.2); Carbon Dioxide 23 mmol/L (22-30); Chloride 108 mmol/L (98-107); Estimated CRCL calculation 71 ml/min; Estimated Glomerular Filt Rate > 60; Glucose 136 mg/dL (75-110); Magnesium 1.9 mg/dL (1.6-2.3); Phosphorus 3.4 mg/dL (2.5-4.5); Potassium 4.1 mmol/L (3.4-5.0); Sodium 137 mmol/L (137-145)
[2019-09-07 06:00] VITALS: PULSE 43
[2019-09-07 08:00] VITALS: BP 135/44; PULSE 47; PULSE 48; RESP 16; TEMP 36; O2SAT 98
[2019-09-07 08:00] LABS: Glucose Point of Care 155 (65-105)
--- NOTE | 2019-09-07 08:33 | PM.PNCARD ---
Progress Note: A&P Additional Plan 74-year-old man with symptomatic paroxysmal atrial flutter also has sinus bradycardia. Have chosen to shift him from the beta-catracho to amiodarone starting a maintenance dose yesterday. Because of the long tissue have life of this agent I told the patient that he can expect to have symptoms like this for the next month or 2 as tissue levels increase hopefully the propensity for atrial flutter will decrease over time. His sinus bradycardia is asymptomatic of any serious symptoms such as syncope and therefore he does not require implantation of a pacemaker device at this time obviously that could change in the future. He will not be anticoagulated at this time because he is anticipating noncardiac hernia surgery next week. From cardiac perspective he is okay for discharge at this time Josiah Guido MD [facility] Subjective Date/time seen: Date of service: 09/07/19 08:33 Interval history: 74-year-old gentleman with history of coronary artery disease, previous MN/PCI and as well as paroxysmal atrial fibrillation. Asymptomatic this morning enjoying breakfast Exam Const: General: comfortable and no acute distress HENMT: Mouth: Yes moist mucous membranes Eyes: Sclera: sclerae normal Pupils: Equal, round and reactive pupils present Neck: Neck: supple and no JVD Thyroid: thyroid normal Carotids: bruit Resp: Effort & Inspection: normal respiratory effort Auscultation: clear to auscultation bilaterally Cardio: Rate: regular rate and bradycardic Rhythm: regular rhythm Other: Grade 2/6 murmur at the base peaking in early systole GI: Auscultation: normal bowel sounds Skin: General skin exam: normal color Neuro: Cognition (Neuro): normal cognition Extrem: General: normal to inspection Objective Data Vital Signs Vital Signs: Vital Signs - 24 hr 09/06/19 09:58 09/06/19 10:00 09/06/19 11:57 Temperature 35.9 C L Pulse Rate 47 L 47 L 44 L Respiratory Rate 12 Blood Pressure 125/43 L Pulse Oximetry 100 09/06/19 12:00 09/06/19 14:00 09/06/19 16:00 Temperature 35.9 C L Pulse Rate 44 L 46 L 91 Respiratory Rate 12 12 Blood Pressure 139/48 L Pulse Oximetry 99 99 09/06/19 16:57 09/06/19 18:00 07/10/20 19:41 Temperature 35.8 C L Pulse Rate 48 L 52 L 50 L Respiratory Rate 18 Blood Pressure 123/36 L Pulse Oximetry 100 09/06/19 20:00 09/06/19 21:45 09/06/19 23:40 Temperature 36.2 C L Pulse Rate 47 L 51 L 53 L Respiratory Rate 18 18 Blood Pressure 133/52 L Pulse Oximetry 100 98 09/07/19 00:00 09/07/19 01:55 09/07/19 04:00 Temperature 37.1 C Pulse Rate 61 60 57 L Respiratory Rate 18 18 Blood Pressure 129/51 L Pulse Oximetry 98 97 09/07/19 06:00 Temperature Pulse Rate 43 L Respiratory Rate Blood Pressure Pulse Oximetry Intake/Output Intake/Output: Intake & Output 09/04/19 09/05/19 09/06/19 09/07/19 23:59 23:59 23:59 23:59 Intake Total 50 3120 1080 468 Output Total 4130 5402 674 Balance 50 053 -2751 -042 Meds/Results Medications: Active Medications Generic Name Dose Route Start Last Admin Trade Name Freq PRN Reason Stop Dose Admin Acetaminophen 650 mg 09/04/19 18:29 Tylenol Tablet PO Q4H PRN Mild Pain (1-3) or Fever Amiodarone HCl 200 mg 09/06/19 15:35 09/06/19 16:57 Pacerone PO 200 mg DAILY@0800 [facility] Administration Amlodipine Besylate 5 mg 09/05/19 09:00 09/06/19 08:52 Norvasc PO 5 mg DAILY [facility] Administration Aspirin 81 mg 09/05/19 09:00 09/06/19 08:52 Aspirin Ec PO 81 mg DAILY [facility] Administration Dextrose 12.5 gm 09/04/19 20:31 Dextrose 50% Syringe IV PUSH PRN PRN Hypoglycemia Protocol Glucagon 1 mg 09/04/19 20:31 Glucagon For Inj IM PRN PRN Hypoglycemia Protocol Glucose 15 gm 09/04/19 20:31 Glutose 15 PO PRN PRN Hypoglycemia Protocol Ceftriaxone Sodium/Dextrose 1 gm in 50 m
[2019-09-07 08:49] VITALS: PULSE 48
[2019-09-07] MEDS: VITAMIN B COMPLEX CAPSULE 1 CAP PO (08:49)
[2019-09-07] MEDS: AMIODARONE HCL 200 MG TABLET PO (08:49)
[2019-09-07] MEDS: ASPIRIN 81 MG ENTERIC TABLET PO (08:53)
[2019-09-07] MEDS: TOLNAFTATE 1% POWDER 45 GM BTL 1 APPLIC TOPICAL (08:53)
[2019-09-07] MEDS: INSULIN HUMAN ISOPHAN/REGULAR 70/30 (*BKC) 100 UNITS/ML 15 UNITS SUB-Q (08:53)
[2019-09-07] MEDS: MULTIVITAMINS /C LUTEIN (CENTRUM SILVER) TABLET *BKC 1 TAB PO (08:53)
[2019-09-07] MEDS: AMLODIPINE BESYLATE 5 MG TABLET PO (08:53)
--- NOTE | 2019-09-07 09:31 | PM.DS ---
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 Patient with bradycardia except 1 episode of probably atrial flutter. Toprol XL resumed but changed to Amio. No plans for anticoagulation at this time due to upcoming surgery. Pacemaker being considered if situation does not improve. Appreciate Cardiology input. (2) Atrial flutter, paroxysmal: Code(s): I48.92 - Unspecified atrial flutter Status: Acute Assessment and Plan: CHADS2-Vasc score 3. No anticoagulation at this time due to plans for upcoming surgery. Toprol XL was resumed but still bradycardic and still having episodes of runs of AFlutter. Toprol stopped and Amio started. Continue aspirin. Appreciate Cardiology input. (3) Elevated troponin I level: Code(s): R79.89 - Other specified abnormal findings of blood chemistry Status: Acute Assessment and Plan: Troponin has climbed to 0.4. Likely secondary to tachycardia. Patient states he had a stress test prior to his bariatric surgery last fall. EKG not showing any acute findings except for delayed transition. Cardiology following. Toprol XL held due to bradycardia. We continued aspirin. (4) Acute renal failure: Qualifiers: Acute renal failure type: unspecified Qualified Code(s): N17.9 - Acute kidney failure, unspecified Code(s): N17.9 - Acute kidney failure, unspecified Status: Acute Assessment and Plan: Cr 1.6 on admission. On repeat, creatinine dropped to 1.2 after gentle hydration and down to 1.0 off IV fluids. Baseline creatinine 1.0-1.2. (5) Catheter-associated urinary tract infection: Qualifiers: Indwelling urinary catheter type: indwelling urethral catheter Encounter type: initial encounter Qualified Code(s): T83.511A - Infection and inflammatory reaction due to indwelling urethral catheter, initial encounter; N39.0 - Urinary tract infection, site not specified Code(s): T83.511A - Infection and inflammatory reaction due to indwelling urethral catheter, initial encounter; N39.0 - Urinary tract infection, site not specified Status: Acute Assessment and Plan: UA noted. BCx NGTD. UCx growing Enterobacter sensitive to Rocephin. White count slowly trending down. Treated with IV Rocephin Day 3. Home with abx to finish a coarse (6) Macrocytic anemia: Code(s): D53.9 - Nutritional anemia, unspecified Status: Acute Assessment and Plan: Hemoglobin 11.8 on admission. On recheck it is down to 9-10 and stable. Baseline hemoglobin running mostly 11-12 range. No signs of acute blood loss. (7) Leukocytosis: Qualifiers: Leukocytosis type: unspecified Qualified Code(s): D72.829 - Elevated white blood cell count, unspecified Code(s): D72.829 - Elevated white blood cell count, unspecified Status: Acute Assessment and Plan: May be secondary to acute UTI. Antibiotics were started for the UTI. White count slowly trending downward but still mildly elevated at 13.9 at time of discharge. It is noted that patient's white count is never normal on the values checked here. (8) Edema of right lower extremity: Code(s): R60.0 - Localized edema Status: Acute Assessment and Plan: Edema is minimal. Bilateral lower extremity Doppler is negative for DVT. Edema could be made worse by the ALAN and/or amlodipine. 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
== END 2019-09-07 10:41 | disposition home or self-care (01) | DRG 309 ==
LOC: ANHED 18:53 → ANHIMU 20:18
PROVIDERS: Family Medicine; Internal Medicine Cardiovascular Disease; Admitting Provider Internal Medicine; Emergency Provider Family Medicine; PCP Internal Medicine; Visit Provider Internal Medicine
DX: I49.5 Sick sinus syndrome (principal); T83.511A Infection and inflammatory reaction due to indwelling urethral catheter, initial encounter; N39.0 Urinary tract infection, site not specified; I48.92 Unspecified atrial flutter; N17.9 Acute kidney failure, unspecified; D53.9 Nutritional anemia, unspecified; E11.41 Type 2 diabetes mellitus with diabetic mononeuropathy; Z79.4 Long term (current) use of insulin; R60.0 Localized edema; I10 Essential (primary) hypertension; L30.4 Erythema intertrigo; I25.10 Atherosclerotic heart disease of native coronary artery without angina pectoris; I48.0 Paroxysmal atrial fibrillation
CPT/HCPCS: 36415; 71046; 80048; 80053; 80069; 81001; 82607; 82728; 82746; 83540; 83550; 83735; 84100; 84443; 84484; 85025; 85027; 85610; 85730; 87040; 87077; 87086; 87088; 87186; 93005; 93970; 96365; 99285; A9270; J0696; J1815; J7030

== ENCOUNTER 2019-12-25 07:42 | Outpatient (CLI) | payer OTHER, SELFPAY ==
--- NOTE | ~2019-12-25 | CT_ITS ---
EXAMINATION: CT chest wo con DATE: 12/25/2019 08:14 INDICATION: multiple pulmonary nodules R91.8 - Other nonspecific abnormal finding of lung field TECHNIQUE: Computed tomography (CT) of the chest was performed without intravenous contrast. Addition al 3D reconstructions utilizing coronal maximum intensity projection (MIP) were performed. Automated exposure control and iterative reconstruction technique were employed. The dose-length product was 28 5.77 mGy-cm. COMPARISON: None FINDINGS: Calcified right lower lobe nodule along with calcified right hilar lymph nodes along with a small spl enic calcification, all consistent with old granulomatous disease. Mild discoid atelectasis at the me dial basilar left lower lobe. No other suspicious pulmonary nodules, pneumonia, pulmonary edema or p leural effusion. Heart size is normal. Atherosclerotic coronary artery calcification. No pericardial effusion. Thoracic aorta is normal in caliber. No pathologically enlarged thoracic lymphadenopathy. T here is a 2.1 x 1.8 cm lobular subcutaneous nodule centered 3 cm caudal to the left nipple. A couple right renal cysts the larger measuring 5.5 cm. Nonobstructing 2 mm stone at a lower pole calyx of the right kidney. Postoperative changes of prior sleeve gastrectomy. Mild thoracic spondylosis with brid ging osteophytes at multiple levels in consistent with diffuse idiopathic skeletal hyperostosis (DIS H). IMPRESSION: 1. Calcified right lower lobe nodule consistent with old granulomatous disease. No suspicious pulmona ry nodules identified. 2. Indeterminate 2.1 x 1.8 cm lobular subcutaneous nodule position inferior to the left nipple. Consi maia further evaluation with ultrasound with biopsy should the lesion appear solid. 3. Nonobstructing 2 mm right renal stone. Reviewed, dictated and finalized at location B. IMPRESSION: 1. Calcified right lower lobe nodule consistent with old granulomatous disease. No suspicious pulmonary nodules identified. 2. Indeterminate 2.1 x 1.8 cm lobular subcutaneous nodule position inferior to the left nipple. Consider further evaluation with ultrasound with biopsy should the lesion appear solid. 3. Nonobstructing 2 mm right renal stone.
== END 2019-12-25 07:43 | disposition home or self-care (01) ==
PROVIDERS: PCP Internal Medicine; Visit Provider Nurse Practitioner
DX: R91.8 Other nonspecific abnormal finding of lung field (principal); N20.0 Calculus of kidney
CPT/HCPCS: 71250

== ENCOUNTER 2020-08-18 14:39 | Outpatient (CLI) | payer OTHER, SELFPAY ==
--- NOTE | ~2020-08-18 | US_ITS ---
EXAMINATION: US soft tissue head and neck DATE: 08/18/2020 15:22 INDICATION: Left neck swelling. TECHNIQUE: Multiple grayscale and Doppler ultrasound images of the neck were obtained. COMPARISON: Chest CT 12/17/2019 FINDINGS: There is a borderline enlarged lymph node in left internal jugular chain. IMPRESSION: 1. Borderline enlarged lymph node in left internal jugular chain, likely reactive in the absence of k nown malignancy. Reviewed, dictated and finalized at location A. IMPRESSION: 1. Borderline enlarged lymph node in left internal jugular chain, likely reacti ve in the absence of known malignancy.
== END 2020-08-18 14:40 | disposition home or self-care (01) ==
LOC: ANHIMG 14:41
PROVIDERS: PCP Internal Medicine; Visit Provider Nurse Practitioner
DX: R22.1 Localized swelling, mass and lump, neck (principal)
CPT/HCPCS: 76536

== ENCOUNTER → 2020-10-02 00:35 | Outpatient (CLI) | payer OTHER, SELFPAY ==
[2020-10-02 23:51] LABS: SARS-CoV-2 RNA PCR Negative
== END ==
PROVIDERS: PCP Internal Medicine; Visit Provider Internal Medicine Gastroenterology
DX: Z01.812 Encounter for preprocedural laboratory examination (principal); Z20.822 Contact with and (suspected) exposure to COVID-19
CPT/HCPCS: C9803; U0003; U0005

== ENCOUNTER 2020-10-05 01:55 | Day surgery (SDC) | payer OTHER, SELFPAY ==
[2020-09-22 14:31] VITALS: BMI 37.0
--- NOTE | 2020-10-02 17:59 | WPDANESEPP ---
Anes - Eval Pre Procedure Procedure: Operation Date: 10/05/20 10:00 Proposed Procedures p Screening Colonoscopy - Daniel King MD Date/Time: 10/02/20 17:59 Pre Op Diagnosis: hx of colon polyps Patient Data Age: 75 Gender: M Height: 1.75 m Weight: 114 kg Allergies Allergy/AdvReac Type Severity Reaction Status Date / Time alcohol Allergy Severe Rash Verified 09/22/20 14:29 [From Mastisol Liquid Adhesive] gum mastic Allergy Severe Rash Verified 09/22/20 14:29 [From Mastisol Liquid Adhesive] methyl salicylate Allergy Severe Rash Verified 09/22/20 14:29 [From Mastisol Liquid Adhesive] storax Allergy Severe Rash Verified 09/22/20 14:29 [From Mastisol Liquid Adhesive] codeine AdvReac Unknown Vomiting Verified 09/22/20 14:29 Home Medications Medication Instructions Recorded Confirmed Type aspirin 81 mg tablet,delayed 81 mg PO DAILY 05/10/19 09/22/20 History release One Daily Multivitamin-Iron 18 mg PO DAILY 09/04/19 09/22/20 History vitamin B complex [B 1 tablet PO DAILY 09/04/19 09/22/20 History Complex-Vitamin B12] insulin NPH-regular 70-30 U-100 15 unit SUB-Q DAILY #15 ml 03/19/20 09/22/20 Rx insulin 100 unit/mL subcutaneous pen pen needle, diabetic 31 gauge x #100 ea 03/26/20 08/18/20 Rx 1/4 omega-3 fatty acids-fish oil 300 1 cap PO DAILY 06/22/20 09/22/20 History mg-1,000 mg capsule amiodarone 200 mg tablet 200 mg PO DAILY 08/18/20 09/22/20 History blood sugar diagnostic See Rx Instructions .ROUTE 09/07/20 Rx .COMPLEX #400 strip irbesartan 300 1 tablet PO DAILY #90 tablet 09/11/20 09/22/20 Rx mg-hydrochlorothiazide 12.5 mg tablet amlodipine 5 mg PO DAILY 09/22/20 09/22/20 History Patient hx anesthesia problems: none Family hx anesthesia problems: none PMFSH Past Medical History Medical History (Updated 10/02/20 @ 18:00 by Gael Perry DO) CAD (coronary artery disease) Diabetes mellitus History of NC (myocardial infarction) HTN (hypertension) with goal to be determined Hyperlipidemia Screening for colon cancer Tachycardia-bradycardia syndrome Surgical History Surgical History (Updated 10/02/20 @ 18:00 by aGel Perry DO) H/O heart artery stent x1 H/O hernia repair Status post bariatric surgery Family History Family History Mother Family history of cardiovascular disease Family history of malignant neoplasm Other Diabetes mellitus Hypertension Social History Social History Smoking packs per day: 1 Smoking cigarettes per day: 20.0 Years smoked: 1,975 Smoking pack-years: 1975.00 Smoking status: Former smoker Tobacco type: pipe Alcohol intake: never Substance use: never Substance use type: does not use Gender identity (if verbalized by the patient): Male Spiritual care concerns: No Exam Day of Procedure 10/02/20 17:59
[2020-10-05 09:22] VITALS: BP 159/55; PULSE 44; RESP 18; TEMP 35.9; O2SAT 100; BMI 35.9
[2020-10-05] MEDS: LACTATED RINGERS 1,000 ML 150 ML IV CONT (09:34)
--- NOTE | 2020-10-05 09:35 | WPDANESEFPP ---
Anes - Eval Final PreProcedure Day of Procedure 10/05/20 09:35 Patient weight: obese Heart: regular rate and rhythm Lungs: clear to auscultation Airway: Mallampati scale class III Neurological: alert and oriented Last oral intake: >/= 8 hours ASA classification: III Emergent: no Anesthetic plan: proceed Anesthesia type and monitoring: general GIVS and standard monitoring Informed Consent: The patient's anesthetic plan and its attendant risks and benefits were discussed with the patient/family/POA. Questions were solicited and answers provided to the satisfaction of the patient/family/POA.
[2020-10-05 09:37] LABS: Glucose Point of Care 101 mg/dl (65-105)
--- NOTE | 2020-10-05 10:01 | PM.HPGS ---
History of Present Illness History of Present Illness Consent: Risks, benefits, and alternatives have been discussed and questions answered. Patient agrees to proceed with procedure. Chief complaint: hx of colon polyps Narrative: Josiah Flores is a 75 year old male with colon polyps 5 years ago. Review of Systems Constitutional: Constitutional: Denies headache(s) and Denies weakness Eyes: Eyes: Denies blurry vision ENT: Reports Normal hearing present, Denies headache(s) and Denies neck pain Cardiovascular: Cardiovascular: Denies chest pain and Denies dyspnea Respiratory: Respiratory: Denies dyspnea Gastrointestinal: Gastrointestinal: Reports no additional gastrointestinal complaints Genitourinary: Genitourinary: Denies dysuria Musculoskeletal: Musculoskeletal: Denies neck pain Integumentary/Breasts: Skin/Breast: Denies dry skin Neurologic: Reports Normal hearing present, Denies headache(s) and Denies weakness Psychiatric: Psychiatric: Denies anxiety Endocrine: Endocrine: Denies change in body appearance Hematologic/Lymphatic: Hematologic/Lymphatic: Denies easy bleeding Allergic/Immunologic: Allergic/Immunologic: Denies urticaria PMFSH Past Medical History Medical History (Updated 10/02/20 @ 18:00 by Gael Perry DO) CAD (coronary artery disease) Diabetes mellitus History of IA (myocardial infarction) HTN (hypertension) with goal to be determined Hyperlipidemia Screening for colon cancer Tachycardia-bradycardia syndrome Surgical History Surgical History (Updated 10/02/20 @ 18:00 by Gael Perry DO) H/O heart artery stent x1 H/O hernia repair Status post bariatric surgery Family History Family History Mother Family history of cardiovascular disease Family history of malignant neoplasm Other Diabetes mellitus Hypertension Social History Social History Smoking packs per day: 1 Smoking cigarettes per day: 20.0 Years smoked: 1,975 Smoking pack-years: 1975.00 Smoking status: Former smoker Tobacco type: pipe Alcohol intake: never Substance use: never Substance use type: does not use Living arrangements: with family Gender identity (if verbalized by the patient): Male Spiritual care concerns: No Meds Home Medications and Allergies Home Medications Medication Instructions Recorded Confirmed Type aspirin 81 mg tablet,delayed 81 mg PO DAILY 05/10/19 09/22/20 History release One Daily Multivitamin-Iron 18 mg PO DAILY 09/04/19 09/22/20 History vitamin B complex [B 1 tablet PO DAILY 09/04/19 09/22/20 History Complex-Vitamin B12] insulin NPH-regular 70-30 U-100 15 unit SUB-Q DAILY #15 ml 03/19/20 09/22/20 Rx insulin 100 unit/mL subcutaneous pen pen needle, diabetic 31 gauge x #100 ea 03/26/20 08/18/20 Rx 1/4 omega-3 fatty acids-fish oil 300 1 cap PO DAILY 06/22/20 09/22/20 History mg-1,000 mg capsule amiodarone 200 mg tablet 200 mg PO DAILY 08/18/20 09/22/20 History blood sugar diagnostic See Rx Instructions .ROUTE 09/07/20 Rx .COMPLEX #400 strip irbesartan 300 1 tablet PO DAILY #90 tablet 09/11/20 09/22/20 Rx mg-hydrochlorothiazide 12.5 mg tablet amlodipine 5 mg PO DAILY 09/22/20 09/22/20 History Allergies Allergy/AdvReac Type Severity Reaction Status Date / Time alcohol Allergy Severe Rash Verified 10/05/20 09:21 [From Mastisol Liquid Adhesive] gum mastic Allergy Severe Rash Verified 10/05/20 09:21 [From Mastisol Liquid Adhesive] methyl salicylate Allergy Severe Rash Verified 10/05/20 09:21 [From Mastisol Liquid Adhesive] storax Allergy Severe Rash Verified 10/05/20 09:21 [From Mastisol Liquid Adhesive] codeine AdvReac Unknown Vomiting Verified 10/05/20 09:21 Vital Signs Vital Signs - 24 hr 10/05/20 09:22 Temperature 96.6 F L Pu
[2020-10-05 10:31] VITALS: BP 120/52; PULSE 41; RESP 19; O2SAT 100
[2020-10-05 10:41] VITALS: BP 127/56; PULSE 42; RESP 17; O2SAT 99
[2020-10-05 10:46] LABS: Glucose Point of Care 103 mg/dl (65-105)
[2020-10-05 10:51] VITALS: BP 139/60; PULSE 43; RESP 20; O2SAT 100
== END 2020-10-05 10:59 | disposition home or self-care (01) ==
PROVIDERS: PCP Internal Medicine; Visit Provider Internal Medicine Gastroenterology
PROC: 0DJD8ZZ Inspection of Lower Intestinal Tract, Via Natural or Artificial Opening Endoscopic (ICD-10-PCS; CPT 45378; principal; 2020-10-05 10:00)
DX: Z12.11 Encounter for screening for malignant neoplasm of colon (principal); K64.8 Other hemorrhoids; K63.5 Polyp of colon; I25.10 Atherosclerotic heart disease of native coronary artery without angina pectoris; E11.9 Type 2 diabetes mellitus without complications; I25.2 Old myocardial infarction; I10 Essential (primary) hypertension; E78.5 Hyperlipidemia, unspecified; I49.5 Sick sinus syndrome; Z87.891 Personal history of nicotine dependence; Z79.82 Long term (current) use of aspirin; Z79.4 Long term (current) use of insulin; E66.9 Obesity, unspecified; Z68.35 Body mass index [BMI] 35.0-35.9, adult; Z95.5 Presence of coronary angioplasty implant and graft; Z98.84 Bariatric surgery status
CPT/HCPCS: 45385; 82948; 88305; C9803; J2704; J7120; U0003; U0005

== ENCOUNTER 2020-10-15 08:27 | Outpatient (CLI) | payer OTHER, SELFPAY ==
--- NOTE | ~2020-10-15 | CT_ITS ---
EXAMINATION: CT chest abdomen pelvis w con DATE: 10/15/2020 09:16 CDT INDICATION: Prostate cancer TECHNIQUE: Computed tomography (CT) of the chest, abdomen, and pelvis was performed with 100 cc Omnip aque 350 intravenous contrast. The dose-length product was 1884.38 mGy-cm. Automated exposure control and iterative reconstruction technique were employed. COMPARISON: CT dated 12/25/2019 FINDINGS: CHEST CT: Nonenlarged mediastinal lymph nodes are not significantly changed allowing for differences of techniq ue. Borderline heart size. No significant pleural or pericardial effusion. No evidence for aortic ane urysm or dissection. There is atherosclerosis of the aorta and coronary arteries. There are a few arnold cified granulomas. Evaluation for small pulmonary nodules limited by motion artifact. There is left l ower lobe atelectasis. ABDOMEN/PELVIS CT: The liver, spleen, pancreas, adrenal glands are unremarkable. There are right renal cysts, largest me asuring 6.9 cm, exophytic medially. There is a punctate nonobstructing right renal stone. There is ch ronic nonspecific perinephric stranding. Gallbladder is present. No significant abnormality of the ab dominal aorta. There are nonenlarged retroperitoneal and inguinal lymph nodes, likely reactive. Bladd er wall is thickened and contains a focal punctate calcification anteriorly. Prostate gland mildly pr ominent. Nonobstructive bowel gas pattern. There is mild left ureterectasis with suggestion of urothe lial enhancement. Cannot exclude ascending urinary tract infection. No osteolytic or osteoblastic les ions. Mild thoracic and lumbar spondylosis. IMPRESSION: 1. Nonenlarged thoracic, abdominal and pelvic lymph nodes, likely reactive. 2: Mild left ureterectasis with suggestion of mild urothelial enhancement. Consider ascending urinary tract infection in the appropriate clinical setting. 3: Nonobstructing right nephrolithiasis. 4: Bladder wall thickening which may be due to outlet obstruction or cystitis. Reviewed, dictated and finalized at location A. IMPRESSION: 1. Nonenlarged thoracic, abdominal and pelvic lymph nodes, likely reactive. 2: Mild left ureterectasis with suggestion of mild urothelial enhancement. Cons ider ascending urinary tract infection in the appropriate clinical setting. 3: Nonobstructing right nephrolithiasis. 4: Bladder wall thickening which may be due to outlet obstruction or cystitis.
--- NOTE | ~2020-10-15 | NM_ITS ---
EXAMINATION: NM bone scan whole body DATE: 10/15/2020 12:16 INDICATION: Prostate cancer TECHNIQUE: 24.5 mCi Tc-99m HDP was administered intravenously. Delayed whole-body scintigrams were o btained. COMPARISON: CT chest, abdomen and pelvis date FINDINGS: Moderate likely degenerative joint centered uptake at the bilateral knees, feet and ankles and at the radial aspect of the left carpus. Additional mild likely degenerative uptake at the sternocostal afshan ction at approximately the level of the anterior first ribs. There is a more atypical focus of modera te increased uptake at the left mandible. No other foci of suspicious bone uptake IMPRESSION: 1. Focus of atypical bone uptake at the left mandible which could be related to metastatic disease al though no other suspicious bone lesions are identified and this could also be explained by dental dis ease. Would recommend further evaluation with either plain radiographs of the mandible or maxillofaci al CT. Reviewed, dictated and finalized at location A. IMPRESSION: 1. Focus of atypical bone uptake at the left mandible which could be related to metastatic disease although no other suspicious bone lesions are identified an d this could also be explained by dental disease. Would recommend further evalu ation with either plain radiographs of the mandible or maxillofacial CT.
[2020-10-15 08:51] LABS: Estimated Glomerular Filt Rate 42
== END 2020-10-15 08:28 | disposition home or self-care (01) ==
LOC: ANHIMG 08:28
PROVIDERS: PCP Internal Medicine; Visit Provider Urology
DX: C61 Malignant neoplasm of prostate (principal); N13.4 Hydroureter; N20.0 Calculus of kidney; N32.9 Bladder disorder, unspecified
CPT/HCPCS: 71260; 74177; 78306; A9561; Q9967

== ENCOUNTER → 2021-02-23 02:33 | Outpatient (CLI) | payer OTHER, SELFPAY ==
[2021-02-24 03:58] LABS: SARS-CoV-2 RNA PCR Positive
== END ==
PROVIDERS: PCP Internal Medicine; Visit Provider Nurse Practitioner
DX: U07.1 COVID-19 (principal)
CPT/HCPCS: C9803; U0003; U0005

== ENCOUNTER 2021-02-25 12:55 | Outpatient (RCR) | payer OTHER, SELFPAY ==
[2021-02-25] MEDS: ACETAMINOPHEN 325 MG TABLET 650 MG PO (15:52)
[2021-02-25] MEDS: diphenhydrAMINE HCl CAP 25 MG CAPSULE PO (15:53)
[2021-02-25] MEDS: FAMOTIDINE 20 MG TABLET PO (15:54)
[2021-02-25 15:58] VITALS: BP 155/45; PULSE 45; RESP 16; TEMP 36.4; O2SAT 100
[2021-02-25 17:04] VITALS: BP 127/45
== END 2021-02-25 17:30 ==
LOC: AMCINF 12:55
PROVIDERS: PCP Nurse Practitioner; Visit Provider Internal Medicine Hematology & Oncology
DX: U07.1 COVID-19 (principal); I10 Essential (primary) hypertension; I25.10 Atherosclerotic heart disease of native coronary artery without angina pectoris
CPT/HCPCS: A9270; M0243; Q0244

== ENCOUNTER 2021-10-26 13:55 | Outpatient (CLI) | payer OTHER, SELFPAY ==
--- NOTE | ~2021-10-26 | US_ITS ---
EXAMINATION: US renal BI DATE: 10/26/2021 15:23 INDICATION: Stage IIIb chronic kidney disease TECHNIQUE: Multiple ultrasound grayscale images of the kidneys were obtained. COMPARISON: Ultrasound dated 11/04/[address] dated 10/15/2020 FINDINGS: The right kidney measures 11.9 x 5.8 x 4.7 cm. The left kidney measures 11.2 x 5.9 x 4.2 cm. The kidn eys demonstrate normal echogenicity. Asymmetric diffuse mild cortical thinning at the right kidney. T here are a couple anechoic right renal cysts the larger measuring 5.7 cm . There is no hydronephrosis in either kidney. No stones identified. The bladder is normal. IMPRESSION: 1. Diffuse mild cortical thinning at the right kidney. No hydronephrosis. Reviewed, dictated and finalized at location A.
== END 2021-10-26 13:56 | disposition home or self-care (01) ==
PROVIDERS: PCP Internal Medicine; Visit Provider Internal Medicine Nephrology
DX: I12.9 Hypertensive chronic kidney disease with stage 1 through stage 4 chronic kidney disease, or unspecified chronic kidney disease (principal); N18.32 Chronic kidney disease, stage 3b; E11.29 Type 2 diabetes mellitus with other diabetic kidney complication
CPT/HCPCS: 76775

== ENCOUNTER 2021-11-25 10:10 | Outpatient (CLI) | payer OTHER, SELFPAY ==
--- NOTE | ~2021-11-25 | CT_ITS ---
EXAMINATION: CT soft tissue neck chest w DATE: 11/25/2021 11:02 INDICATION: Squamous cell carcinoma of skin of face. TECHNIQUE: Computed tomography (CT) of the neck and chest was performed with 100 mL Omnipaque 350 int ravenous contrast. Automated exposure control and iterative reconstruction technique were employed. T he dose-length product was 1175.33 mGy-cm. COMPARISON: Chest CT 10/15/2020, 12/25/19 FINDINGS: NECK CT: Partially visualized is a 18 x 8 mm mass of the scalp on the right. There are no pathologica lly enlarged lymph nodes. There is mucosal thickening in the paranasal sinuses. There are no patholog ically enlarged lymph nodes. There is plaque in the proximal internal carotid arteries with 66% steno sis on the right and 0% stenosis on the left. There is severe cervical spondylosis. CHEST CT: There is mild atelectasis in the lungs. Cardiomegaly is noted. There are coronary artery ca lcifications. There are calcifications of the aortic valve. No pericardial effusion. There is a 12 x 13 mm right paratracheal lymph node. There are changes of gastric sleeve procedure. There is a small sliding hiatal hernia. There is a 4.7 cm cyst in right kidney. Calcifications in the spleen are consi stent with old granulomatous disease. Again seen is a 21 x 16 mm left breast mass, stable from 2019, likely benign. There is mild thoracic spondylosis. IMPRESSION: 1. 18 x 8 mm mass of the right lateral scalp, consistent with primary malignancy. 2. Mildly enlarged right paratracheal lymph node, stable from 12/25/2019, likely benign. Reviewed, dictated and finalized at location A. IMPRESSION: 1. 18 x 8 mm mass of the right lateral scalp, consistent with primary malignanc y. 2. Mildly enlarged right paratracheal lymph node, stable from 12/25/2019, likel y benign.
--- NOTE | ~2021-11-25 | CT_ITS ---
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 The dose-length product was 605.33 mGy-cm. Automated exposure control and iterative reconstr uction technique were employed. COMPARISON: None FINDINGS: There is an enhancing skin lesion measuring 2 x 0.8 cm in the right frontal scalp. Mild gen eralized brain parenchymal volume loss. There are scattered mild periventricular and subcortical whit e matter changes, most likely related to small vessel ischemic disease (microangiopathy). No abnormal intracranial enhancement. No ventriculomegaly or midline shift. There is air-fluid levels in the max illary sinuses. Mastoids are pneumatized. No depressed skull fractures. No abnormal masses, acute inf arction or hemorrhage identified. IMPRESSION: 1. Enhancing right frontal scalp lesion, likely corresponding to known squamous cell carcinoma. 2: Chronic age-related findings. Reviewed, dictated and finalized at location B.
[2021-11-25 10:49] LABS: Estimated Glomerular Filt Rate 33
== END 2021-11-25 10:11 | disposition home or self-care (01) ==
PROVIDERS: PCP Internal Medicine; Visit Provider Otolaryngology
DX: C44.320 Squamous cell carcinoma of skin of unspecified parts of face (principal); I25.10 Atherosclerotic heart disease of native coronary artery without angina pectoris; I51.7 Cardiomegaly; N28.1 Cyst of kidney, acquired; M47.814 Spondylosis without myelopathy or radiculopathy, thoracic region
CPT/HCPCS: 70460; 70491; 71260; Q9967

== ENCOUNTER 2022-03-17 | Inpatient (IN) | payer OTHER, SELFPAY ==
[2022-03-17] VITALS (39 sets, daily range): BP systolic 103–164; BP diastolic 40–98; PULSE 52–99; RESP 16–22; TEMP 36–37.3; O2SAT 91–100; BMI 40.0
--- NOTE | ~2022-03-17 | CT_ITS ---
CT Abdomen and Pelvis with contrast. History: Abdominal pain. Spiral CT of the abdomen and pelvis was performed after the administration of intravenous contrast. 1 00 cc of Omnipaque 350 was administered intravenously without complication. Dose reduction technique was used on this scan by utilizing automated exposure control and iterative reconstruction technique. The dose-length product (DLP) was 1570.14 mGy-cm. COMPARISON: 10/15/2020 Findings: Scans through the lung bases demonstrate mild atelectatic change. The liver, spleen, pancreas, gallbladder, adrenals and kidneys are within normal limits. No evidence of aortic aneurysm. There is prominent atherosclerotic calcification at the origin of the SMA. No ly mphadenopathy is seen. There is no evidence of bowel obstruction. There is evidence of prior bariatric surgery. Appendix is probably mildly dilated with periappendiceal inflammatory stranding. No abscess or free air.. Images through the pelvis were performed. Questionable urinary bladder wall thickening versus underdi stention. Prostate gland demonstrates fiducial markers. No ascites is seen. Impression: Findings suggestive of acute appendicitis, as detailed above. No abscess or free air. Questionable urinary bladder wall thickening versus underdistention. Correlate with urinalysis for cy stitis. Reviewed, dictated and finalized at location . [employer] Impression: Findings suggestive of acute appendicitis, as detailed above. No abscess or armond e air. Questionable urinary bladder wall thickening versus underdistention. Correlate with urinalysis for cystitis.
[2022-03-17 01:16] LABS: Basophils Percent Auto 0.2 % (0.2-1.2); Eosinophils Absolute Auto 0.2 K/mm3 (0-0.3); Eosinophils Percent Auto 1.3 % (0-4.4); Hematocrit 43.1 % (42.0-52.0); Hemoglobin 13.7 g/dL (14.0-18.0); Immature Granulocyte Absolute 0.11 K/mm3 (0.00-0.031); Immature Granulocyte Percent A 0.8 % (0-0.5); Lymphocytes Absolute Auto 3.58 K/mm3 (0.9-3.2); Lymphocytes Percent Auto 25.9 % (18.3-44.2); Mean Corpuscular HGB Conc 31.8 g/dl (32-36); Mean Corpuscular Volume 103.9 fl (80-100); Mean Platelet Volume 10.4 fl (7.4-10.4); Monocytes Absolute Auto 0.7 K/mm3 (0.1-0.6); Monocytes Percent Auto 4.7 % (2.6-8.5); Neutrophils Absolute Auto 9.3 K/mm3 (1.3-6.7); Neutrophils Percent Auto 67.1 % (45.5-73.1); Platelet Count Result 159 k/mm3 (150-375); Red Blood Count 4.15 M/mm3 (4.6-6.20); White Blood Count 13.8 K/mm3 (4.5-10.0)
[2022-03-17 01:17] LABS: Appearance Urine Clear (Clear); Bilirubin Urine Negative (Negative); Blood Urine Trace-intact (Negative); Color Urine Yellow (Yellow); Glucose Urine UA Negative (Negative); Ketones Urine Negative (Negative); Leukocyte Esterase Ur 1+ LEU/UL (Negative); Nitrate Urine Negative (Negative); Protein Urine 2+ mg/dL (Negative); Specific Grav Ur 1.015 (1.001-1.035); Urobilinogen Urine 0.2 mg/dL (<2.0)
--- NOTE | 2022-03-17 01:19 | ED.ABDPAIN ---
HPI - Abdominal Pain General Chief Complaint: Abdominal Pain <MICHAEL Collier Last Filed: 03/17/22 13:54> Stated Complaint: abd pain <MICHAEL Collier Last Filed: 03/17/22 13:54> Time Seen by Provider: 03/17/22 00:24 <MICHAEL Collier Last Filed: 03/17/22 13:54> Source: patient <MICHAEL Collier Last Filed: 03/17/22 13:54> Mode of arrival: ambulatory <MICHAEL Collier Last Filed: 03/17/22 13:54> Limitations: no limitations <MICHAEL Collier Last Filed: 03/17/22 13:54> History of Present Illness HPI narrative: Patient is a 76 y/o male who presents to the ED with c/o RLQ abdominal pain. Patient reports the pain began suddenly around 11 PM last night (Monday). It has been constant since then. He has not tried anything for pain. Pain worse with movement, hitting bumps on the road, no alleviating factors. Denies history of similar pain. Otherwise asymptomatic. Denies nausea, vomiting, fevers, diarrhea, constipation, urinary symptoms, chest pain, difficulty breathing. Last bowel movement Monday. <MICHAEL Collier Last Filed: 03/17/22 13:54> Related Data Home Medications: Home Medications Medication Instructions Recorded Confirmed aspirin 81 mg tablet,delayed 81 mg PO DAILY 05/10/19 07/06/21 release (Adult Low Dose Aspirin) multivitamin-ferrous sulfate 18 mg 18 mg PO DAILY 09/04/19 07/06/21 tablet (One Daily Multivitamin with Iron) vitamin B complex (B 1 tablet PO DAILY 09/04/19 07/06/21 Complex-Vitamin B12 tablet) omega-3 fatty acids-fish oil 300 1 cap PO DAILY 06/22/20 07/06/21 mg-1,000 mg capsule amiodarone 200 mg tablet 200 mg PO DAILY 08/18/20 07/06/21 olmesartan 20 mg tablet 20 mg PO DAILY 06/24/21 07/06/21 <Lenka Encinas PA-C - Last Filed: 03/17/22 13:54> Allergies/Adverse Reactions: Allergies Allergy/AdvReac Type Severity Reaction Status Date / Time alcohol Allergy Severe Rash Verified 09/24/21 09:25 [From Mastisol Liquid Adhesive] gum mastic Allergy Severe Rash Verified 09/24/21 09:25 [From Mastisol Liquid Adhesive] methyl salicylate Allergy Severe Rash Verified 09/24/21 09:25 [From Mastisol Liquid Adhesive] storax Allergy Severe Rash Verified 09/24/21 09:25 [From Mastisol Liquid Adhesive] codeine AdvReac Unknown Vomiting Verified 09/24/21 09:25 <Lenka Encinas PA-C - Last Filed: 03/17/22 13:54> Review of Systems Review of Systems: CONSTITUTIONAL: Denies fever, chills, or sweats. CARDIOVASCULAR: Denies chest pain, palpitations, or edema. RESPIRATORY: Denies cough or dyspnea. GASTROINTESTINAL: See HPI. GENITOURINARY: Denies dysuria or hematuria. <MICHAEL Collier Last Filed: 03/17/22 13:54> All systems reviewed & are unremarkable except as noted in HPI and below <Lenka Encinas PA-C - Last Filed: 03/17/22 13:54> COUNTS INCLUDE 234 BEDS AT THE [facility] Past Medical History Medical History: Medical History Aortic valve stenosis CAD (coronary artery disease) Colonoscopy planned Diabetes mellitus Heart attack Hernia History of [place] (myocardial infarction) HTN (hypertension) with goal to be determined Hyperlipidemia Paroxysmal atrial fibrillation Pneumonia Screening for colon cancer Skin cancer Tachycardia-bradycardia syndrome <MICHAEL Collier Last Filed: 03/17/22 13:54> Surgical History Surgical History: Surgical History H/O colonoscopy with polypectomy 09/2020 - findings of transverse colon polyp that was excised and small internal hemorrhoids H/O heart artery stent 2016 H/O hernia repair Right inguinal hernia repair in 1971 Recurrent right inguinal hernia repair with mesh in the last 1-2 years History of cardiac cath 2014 - balloon angioplasty of a small
[2022-03-17 01:26] LABS: Alanine Aminotransferase 21 U/L (6-50); Albumin Level 4.1 g/dL (3.5-5.1); Alkaline Phosphatase 88 U/L (38-126); Anion Gap 7 mmol/L (8-16); Aspartate Amino Transferase 33 U/L (17-59); Bilirubin,Total 0.5 mg/dL (0.2-1.3); Blood Urea Nitrogen 31 mg/dL (9-20); Calcium 8.9 mg/dL (8.4-10.2); Carbon Dioxide 28 mmol/L (22-30); Chloride 106 mmol/L (98-107); Estimated CRCL calculation 39 ml/min; Estimated Glomerular Filt Rate 35; Glucose 152 mg/dL (65-110); Lipase 131 U/L (23-300); Potassium 4.8 mmol/L (3.4-5.0); Sodium 141 mmol/L (137-145)
[2022-03-17 01:28] LABS: RBC Urine 0-2 /hpf (0-2); Squamous Epithelial Cell Urine Rare /hpf (Few)
[2022-03-17 01:29] LABS: Add Urine Microscopic? YES
[2022-03-17] MEDS: ONDANSETRON INJ 4 MG/2 ML VIAL IV PUSH (01:30)
[2022-03-17] MEDS: SODIUM CHLORIDE 0.9% IV 1,000 ML 999 ML IV CONT ×2 (01:30→04:36)
[2022-03-17] MEDS: MORPHINE SULFATE (*CRX) 4 MG/ML INJ IV PUSH ×2 (01:35→08:13)
[2022-03-17 05:13] LABS: Influenza A QL RT-PCR Negative (Negative); Influenza B QL RT-PCR Negative (Negative); SARS-CoV-2 RNA PCR Negative
--- NOTE | 2022-03-17 07:30 | ADMGEN ---
This patient, Josiah Flores, was admitted to [facility] Surg Room 332-01. Patient/family oriented to hospital policies and general routines including ID bracelet, bed and alarms, visiting hours, pain management, procedures, bathroom and other care routines, personal items, smoking policy, room service/diet, and visiting hours. Information on how to activate the Rapid Response Team has been discussed. Patient/Family are encouraged to report perceived risks to care and to ask questions if they do not understand what they are told or what they should do.
[2022-03-17 08:25] LABS: Glucose Point of Care 126 mg/dl (65-105)
--- NOTE | 2022-03-17 08:58 | PM.IMHP ---
H&P: HPI History of Present Illness Date/Time: 03/17/22 08:58 Chief Complaint: Right lower quadrant abdominal pain Narrative: This is a 76-year-old man who presented to the ER with complaints of right lower quadrant abdominal pain since last night. His pain started around 10:30 p.m. and remained constant. He denies any associated nausea, vomiting, fever, or chills. He did not try to take anything for the pain. His pain was aggravated by movement and hitting bumps on the road while traveling to the ER. He has never had this pain in the past. Therefore, he came into the ER for evaluation. Labs were significant for white blood cell count [id number]. CT scan of the abdomen pelvis showed acute appendicitis. Our service was contacted by the ED provider and he is being admitted in the setting of acute appendicitis. He is now seen in preop. He was started on IV Zosyn and made NPO. Hospitalist has been consulted for medical management. He has a history of insulin-dependent type 2 diabetes mellitus, atrial fibrillation, hypertension, hyperlipidemia, chronic kidney disease, and coronary artery disease. He is not on any anticoagulation. Also, he has a history of prostate cancer and completed radiation therapy in April of 2021. He has a history of multiple cutaneous malignancies with the most recent being right temporal squamous cell carcinoma that is status post surgical resection in November of 2021 and has completed radiation therapy actually last Monday. His last colonoscopy was September of 2020 with a polypectomy. He follows with the cardiology group and last saw Dr. Guido in September for his coronary artery disease. In review of his note, he was found to have moderate aortic valve stenosis on previous echocardiogram, but there is no echocardiogram for me to review in his electronic medical record. He has had multiple previous abdominal surgeries. He had a right inguinal hernia repair in the early 1969's and an open ventral hernia repair in the 1979's. He then developed a large right inguinal hernia with his bladder herniated into his scrotum, which was eventually repaired at [place] about 1-2 years ago after having 120 lb weight loss following a laparoscopic gastric bypass in 2019. He has gained back about 40 pounds since his total weight loss. Review of Systems Review of Systems: All systems reviewed & are unremarkable except as noted in HPI and below Constitutional: Constitutional: Reports no additional constitutional complaints, Denies chills, Denies fatigue, Denies fever(s), Denies poor appetite and Denies weakness Eyes: Eyes: Reports no additional eye complaints ENT: Reports system reviewed and no additional complaints, except as documented and Denies dizziness Cardiovascular: Cardiovascular: Reports no additional cardiovascular complaints, Denies chest pain and Denies leg edema Respiratory: Respiratory: Reports no additional respiratory complaints, Denies cough and Denies dyspnea Gastrointestinal: Gastrointestinal: Reports as per HPI, Reports no additional gastrointestinal complaints, Reports abdominal pain, Denies melena, Denies bloating, Denies hematochezia, Denies change in bowel habits, Denies change in stool character, Denies diarrhea, Denies nausea and Denies vomiting Genitourinary: Genitourinary: Reports no additional male genitourinary complaints and Denies dysuria Musculoskeletal: Musculoskeletal: Reports no additional musculoskeletal complaints, Denies abnormal gait and Denies joint swelling Integumentary/Breasts: Skin/Breast: Reports system reviewed and no additional complaints, except as docu Neurologic: Reports system reviewed and no additional complaints, except as documented, Denies focal weakness, Denies numbness and Denies tingling PMFSH Past Medical History Medical History (Updated 03/17/22 @ 09:23 by MICHAEL Del Valle) Aortic valve stenosis CAD (coronary artery disease) Colonoscopy planned Diabetes mellitus Hear
--- NOTE | 2022-03-17 09:28 | ECG_ITS ---
Measurements Intervals [place] Rate: 55 P: 85 TN: 286 QRS: -20 QRSD: 138 T: 0 QT: 464 QTc: 447 Interpretive Statements SINUS BRADYCARDIA WITH FIRST DEGREE AV BLOCK INTRAVENTRICULAR CONDUCTION DELAY BORDERLINE ST-T WAVE ABNORMALITY- DIFFUSE LEADS ABNORMAL ECG COMPARED TO ECG 09/06/2019 09:15:42 NO SIGNIFICANT CHANGES Electronically Signed On 03-17-2022 9:47:28 MECH[employer]ICAL ENGINEERING OFFICER by Bharathi Dailey D.O.
--- NOTE | 2022-03-17 10:24 | WPDHPUPDATE1 ---
History and Physical Update Update Date/Time: 03/17/22 10:24 History and Physical has been reviewed, including an updated exam of the patient. There are NO changes in the patient's condition. Risks, benefits, and alternatives have been discussed and questions answered. Patient agrees to proceed with procedure.
--- NOTE | 2022-03-17 10:29 | WPDANESEPPF ---
Anes - Initial Pre Proc Eval Procedure: Operation Date: 03/17/22 10:30 Proposed Procedures p Laparoscopic Appendectomy - Chu Sanchez MD Date/Time: 03/17/22 10:29 Surgeon: Chu Sanchez MD Pre Op Diagnosis: appendicitis Patient Data Age: 76 Gender: M Height: 1.75 m Weight: 122.9 kg Last Vital Signs Temp 37.3 C 03/17/22 09:32 Pulse 58 L 03/17/22 09:32 Resp 20 03/17/22 09:32 BP 142/044 H 03/17/22 09:32 Pulse Ox 94 03/17/22 09:32 O2 Del Method Room Air 03/17/22 09:32 Allergies Allergy/AdvReac Type Severity Reaction Status Date / Time alcohol Allergy Severe Rash Verified 09/24/21 09:25 [From Mastisol Liquid Adhesive] gum mastic Allergy Severe Rash Verified 09/24/21 09:25 [From Mastisol Liquid Adhesive] methyl salicylate Allergy Severe Rash Verified 09/24/21 09:25 [From Mastisol Liquid Adhesive] storax Allergy Severe Rash Verified 09/24/21 09:25 [From Mastisol Liquid Adhesive] codeine AdvReac Unknown Vomiting Verified 09/24/21 09:25 Home Medications Medication Instructions Recorded Confirmed Type aspirin 81 mg tablet,delayed 81 mg PO DAILY 05/10/19 07/06/21 History release (Adult Low Dose Aspirin) multivitamin-ferrous sulfate 18 mg 18 mg PO DAILY 09/04/19 07/06/21 History tablet (One Daily Multivitamin with Iron) vitamin B complex (B 1 tablet PO DAILY 09/04/19 07/06/21 History Complex-Vitamin B12 tablet) omega-3 fatty acids-fish oil 300 1 cap PO DAILY 06/22/20 07/06/21 History mg-1,000 mg capsule amiodarone 200 mg tablet 200 mg PO DAILY 08/18/20 07/06/21 History olmesartan 20 mg tablet 20 mg PO DAILY 06/24/21 07/06/21 History insulin NPH-regular 70-30 U-100 15 unit (0.15 mL) subcut DAILY #15 09/06/21 Rx insulin 100 unit/mL subcutaneous mL pen (Novolin 70-30 FlexPen U-100 Insulin) pen needle, diabetic 31 gauge x ##100 09/06/21 Rx 5/16 (BD Ultra-Fine Short Pen Needle) pen needle, diabetic 31 gauge x #100 ea 09/10/21 Rx 1/4 (Comfort EZ [place]) amlodipine 5 mg tablet See Rx Instructions .Route 12/01/21 Rx .COMPLEX #90 tabs blood sugar diagnostic (Contour See Rx Instructions .Route 12/16/21 Rx Test Strips) .COMPLEX #400 strips Laboratory Tests 03/17/22 03/17/22 03/17/22 01:11 01:11 01:11 WBC 13.8 K/mm3 H K/mm3 (4.5-10.0) RBC 4.15 M/mm3 L M/mm3 (4.6-6.20) Hgb 13.7 g/dL L D g/dL (14.0-18.0) Hct 43.1 % % (42.0-52.0) MCV 103.9 fl H fl (80-100) MCH 33.0 pg pg (26-34) MCHC 31.8 g/dl L g/dl (32-36) RDW 13.0 % % (11.5-14.5) Plt Count 159 k/mm3 k/mm3 (150-375) MPV 10.4 fl fl (7.4-10.4) Immature Gran % (Auto) 0.8 % H % (0-0.5) Neut % (Auto) 67.1 % % (45.5-73.1) Lymph % (Auto) 25.9 % % (18.3-44.2) Craven % (Auto) 4.7 % % (2.6-8.5) Eos % (Auto) 1.3 % % (0-4.4) Baso % (Auto) 0.2 % % (0.2-1.2) Lymph # (Auto) 3.58 K/mm3 H K/mm3 (0.9-3.2) Craven # (Auto) 0.7 K/mm3 H K/mm3 (0.1-0.6) Eos # (Auto) 0.2 K/mm3 K/mm3 (0-0.3) Baso # (Auto) 0.0 K/mm3 K/mm3 (0.0-0.1) Abs Immat Gran (auto) 0.11 K/mm3 H K/mm3 (0.00-0.031) Absolute Neuts (auto) 9.3 K/mm3 H K/mm3 (1.3-6.7) Absolute Nucleated RBC 0.0 K/mm3 K/mm3 (0.0-0.012) Nucleated RBC % 0.0 % % (0.0-0.2) Sodium 141 mmol/L mmol/L (137-145) Potassium 4.8 mmol/L mmol/L (3.4-5.0) Chloride 106 mmol/L mmol/L (98-107) Carbon Dioxide 28 mmol/L mmol/L (22-30) Anion Gap 7 mmol/L L mmol/L (8-16) BUN 31 mg/dL H D mg/dL (9-20) Creatinine 1.90 mg/dL H mg/dL (0.7-1.3) Estim Creat Clear Calc 39 ml/min ml/min Estimated GFR 35 L (59 - ) Glucose 152 mg/dL H mg/dL (65-110) P
[2022-03-17] MEDS: BUPIVACAINE/EPINEPHRINE 0.5% 30 ML VIAL INFILTRATE (11:00)
--- NOTE | 2022-03-17 12:07 | W.PM.PROC2 ---
Procedure Note - Detailed Date of Procedure 03/17/22 Pre-op Diagnosis appendicitis Post-op Diagnosis Other (Acute perforated appendicitis.) Procedure Performed Laparoscopic appendectomy. Surgeon Chu Sanchez MD [employer] LU[employer] F Vides. Anesthesia General Indications The patient is a 36-year-old gentleman who presented to the emergency room with a 12 hr history of severe right lower quadrant abdominal pain. he had elevated white blood cell count but no fever. CT scan abdomen pelvis showed a dilated and inflamed appendix with periappendiceal inflammation. No obvious evidence of perforation was seen at the time of the CT scan. Findings Perforated appendicitis with purulent fluid around the appendix. No organized abscess. No fecal contamination. Description of Procedure After informed consent was obtained, the patient was brought to the operating room was placed in the supine position and then general endotracheal anesthesia was administered. The abdomen then shaved and a Macedo catheter was placed without difficulty. The abdomen was then prepped and draped usual sterile fashion. A time-out was then performed correctly identifying the patient as well as procedure to be performed and verifying he was on scheduled IV antibiotics. I then entered the abdomen the left upper quadrant utilizing a 5millimeter Opti View port with direct optical insertion. Once inside the abdomen insufflated to an adequate pneumoperitoneum 15millimeters mercury CO2. There were 2 adhesions of the omentum to the epigastric region of the abdomen and I could see around these to the periumbilical region and there were no adhesions this area. I did note that there was prostatic mashed in the periumbilical region which was well incorporated and had repaired his prior periumbilical hernia very well. I then placed a 12millimeter Optiview port in the periumbilical region through the mesh. Additional 5millimeter trocar ports were then placed in the suprapubic region and the right lower quadrant without difficulty. Using laparoscopic instruments I was able to find the appendix in the right lower quadrant lateral to the cecum. There was purulent fluid around the appendix and in the proximal 1/3 of the appendix there was perforation of the wall. There was no fecal contamination. I was then able to make a defect through the mesoappendix just at the base with a [place] dissector. I then used a 45millimeter Endo-BELGICA Stapler to divide the appendix flush with the cecum. A vascular reload to the Stapler was then used to divide the mesoappendix. There was 1 small area bleeding on the staple line to the mesoappendix which was controlled with electrocautery. The appendix was then placed into an Endo-Catch bag and brought out through the periumbilical trocar port site. The appendix was passed off table sent to pathology for examination. I then irrigated out the right lower quad the abdomen and the pelvis with sterile saline solution. I assured hemostasis and then aspirated the fluid from the pelvis the right lower quadrant. A 15 [place] round [place] drain was then placed through the right lower quadrant trocar port site and secured at the skin level with a 3-0 nylon suture. I then removed all the trocar ports under visualization all port sites appeared hemostatic. I then allowed the abdomen decompressed. I then closed the 12millimeter periumbilical facile defect with permanent interrupted 0 Ethibond sutures since I had created a defect through the prosthetic mesh. I then irrigated all the ports as sterile saline solution then close all the ports at the skin level utilizing a running subcuticular 4 0 Monocryl suture. All the port sites were then cleaned and then 4x4 gauze and Tegaderm used for final dressing. The patient tolerated the procedure well no complications. All sponges, needles, and instrument counts were correct at the end procedure. EBL was _20_cc. The patient was awakened and taken to recovery
[2022-03-17] MEDS: LACTATED RINGERS 1,000 ML 30 ML IV CONT ×2 (12:13→12:14)
[2022-03-17 12:19] LABS: Glucose Point of Care 122 mg/dl (65-105)
[2022-03-17 13:52] LABS: Hemoglobin A1C 6.8 % (<5.7)
[2022-03-17] MEDS: SODIUM CHLORIDE 0.9% IV 1,000 ML 125 ML IV CONT (15:23)
[2022-03-17 17:04] LABS: Glucose Point of Care 141 mg/dl (65-105)
--- NOTE | 2022-03-17 17:43 | PM.IMCN ---
Assessment and Plan Assessment and plan (1) Acute appendicitis: Qualifiers: Acute appendicitis type: with localized peritonitis Appendicitis abscess presence: without abscess Appendicitis gangrene presence: without gangrene Appendicitis perforation presence: without perforation Qualified Code(s): K35.30 - Acute appendicitis with localized peritonitis, without perforation or gangrene Code(s): K35.80 - Unspecified acute appendicitis Status: Acute Assessment and Plan: Josiah Flores is a 76 year old male patient is a 76-year-old male with past medical history diabetes, hypertension, coronary artery disease, hyperlipidemia, proximal atrial fibrillation and history of skin cancer and patient seen by Oncology, patient presented with complaint of right lower quadrant pain had a CT scan abdomen showed patient has acute appendicitis patient seen by surgery service and was taken to OR for appendectomy which he tolerated and currently in the room, been consulted for medical management for patient with a diabetes, hypertension hyperlipidemia and coronary artery disease, I have started the patient on Lantus 10 units and sliding scale with hypoglycemia protocol, the patient's home medications reconcile will review and resume. currently patient's family present in the room and answered all their question. DVT prophylaxis and pain management per surgery service (2) Paroxysmal atrial fibrillation: Code(s): I48.0 - Paroxysmal atrial fibrillation Status: Acute Assessment and Plan: patient rate is controlled with amiodarone patient is not anticoagulated (3) Diabetes mellitus with chronic kidney disease: Code(s): E11.22 - Type 2 diabetes mellitus with diabetic chronic kidney disease Status: Acute Assessment and Plan: we have started the patient Lantus 10 units q.day and low sliding scale continue to monitor patient blood sugar and adjust her insulin as needed HPI Data of Consult Consult date: 03/17/22 Requesting Physician: Chu Sanchez MD Primary Care Provider: Leena Hodge MD Consult Narrative Narrative: Josiah Flores is a 76 year old male patient is a 76-year-old male with past medical history diabetes, hypertension, coronary artery disease, hyperlipidemia, proximal atrial fibrillation and history of skin cancer and patient seen by Oncology, patient presented with complaint of right lower quadrant pain had a CT scan abdomen showed patient has acute appendicitis patient seen by surgery service and was taken to OR for appendectomy which he tolerated and currently in the room, been consulted for medical management for patient with a diabetes, hypertension hyperlipidemia and coronary artery disease, I have started the patient on Lantus 10 units and sliding scale with hypoglycemia protocol, the patient's home medications reconcile will review and resume. currently patient's family present in the room and answered all their question. Review of Systems Review of Systems: All systems reviewed & are unremarkable except as noted in HPI and below Constitutional: Constitutional: Reports no additional constitutional complaints, Denies chills, Denies fatigue, Denies fever(s), Denies poor appetite and Denies weakness Eyes: Eyes: Reports no additional eye complaints ENT: Reports system reviewed and no additional complaints, except as documented and Denies dizziness Cardiovascular: Cardiovascular: Reports no additional cardiovascular complaints, Denies chest pain and Denies leg edema Respiratory: Respiratory: Reports no additional respiratory complaints, Denies cough and Denies dyspnea Gastrointestinal: Gastrointestinal: Reports as per HPI, Reports no additional gastrointestinal complaints, Reports abdominal pain, Denies melena, Denies bloating, Denies hematochezia, Denies change in bowel habits, Denies change in stool character, Denies diarrhea, Denies nausea and Denies vomi
[2022-03-17 20:51] LABS: Glucose Point of Care 183 mg/dl (65-105)
[2022-03-17] MEDS: INSULIN GLARGINE (*BKC) 100 UNITS/ML 10 UNITS SUB-Q (20:51)
[2022-03-18] VITALS (7 sets, daily range): BP systolic 125–147; BP diastolic 42–58; PULSE 51–60; RESP 17–18; TEMP 36.1–37.2; O2SAT 92–98
[2022-03-18] MEDS: oxyCODONE HCL (*CRX) 5 MG TAB IR PO (04:29)
[2022-03-18 06:43] LABS: Hematocrit 36.3 % (42.0-52.0); Hemoglobin 11.3 g/dL (14.0-18.0); Immature Platelet Fraction Pct 6.4 % (0.9-11.2); Mean Corpuscular HGB Conc 31.1 g/dl (32-36); Mean Corpuscular Hemoglobin 32.5 pg (26-34); Mean Corpuscular Volume 104.3 fl (80-100); Mean Platelet Volume 11.2 fl (7.4-10.4); Platelet Count Result 126 k/mm3 (150-375); Red Blood Count 3.48 M/mm3 (4.6-6.20); Red Cell Distribution Width 13.1 % (11.5-14.5); White Blood Count 17.6 K/mm3 (4.5-10.0)
[2022-03-18 07:05] LABS: Alanine Aminotransferase 15 U/L (6-50); Albumin Level 3.1 g/dL (3.5-5.1); Alkaline Phosphatase 54 U/L (38-126); Anion Gap 3 mmol/L (8-16); Aspartate Amino Transferase 25 U/L (17-59); Bilirubin,Total 0.9 mg/dL (0.2-1.3); Blood Urea Nitrogen 19 mg/dL (9-20); Calcium 7.7 mg/dL (8.4-10.2); Carbon Dioxide 26 mmol/L (22-30); Chloride 103 mmol/L (98-107); Estimated CRCL calculation 47 ml/min; Estimated Glomerular Filt Rate 42; Glucose 131 mg/dL (65-110); Magnesium 1.5 mg/dL (1.6-2.3); Potassium 3.5 mmol/L (3.4-5.0); Sodium 132 mmol/L (137-145)
[2022-03-18 08:24] LABS: Glucose Point of Care 121 mg/dl (65-105)
[2022-03-18] MEDS: PANTOPRAZOLE SOD SESQUIHYDRATE 20 MG TAB PO (09:12)
--- NOTE | 2022-03-18 09:26 | WPDPN ---
Progress Note: A&P Assessment and Plan (1) Perforated appendicitis: Code(s): K35.32 - Acute appendicitis with perforation, localized peritonitis, and gangrene, without abscess Status: Acute Assessment and Plan: Patient is doing better but he continues to have some mild pain in the right lower quadrant. drain output is [place] [address] which is not unexpected after this perforated appendicitis. He would need to continue on Zosyn for IV antibiotics until his white blood cell count starts to down trend. He has remained afebrile and overall his clinical picture is improving. Will go ahead and get PT and OT ordered. Decrease his IV fluids and advance diet as tolerated. Will likely be here for at least 1 or 2 more days. At the time of discharge he will need to continue on a course of oral antibiotics for another 7 to 10 days. Subjective Date/time seen: 03/18/22 09:26 Interval history: Patient is postop day 1. After laparoscopic appendectomy. He did have a perforated appendix without fecal contamination. He does feel better today. He still does have some pain in her right lower quadrant and around his port sites. He has remained afebrile. Drain output has been serosanguineous and minimal. He has been tolerating a liquid diet. White blood cell count today is 17,000 which is increased from preop but this would be expected after his surgery due to stress response and inflammation from the perforated appendicitis. Review of Systems Review of Systems: The remainder of the review of systems to include constitutional, HEENT, cardiovascular, respiratory, GI, , integumentary, musculoskeletal, endocrine, immunologic, hematologic, psychiatric, and neurologic are all negative except for which is mentioned above in the HPI. Exam GI: Other: Abdomen is soft and obese. Port site incisions were dressed and dry without drainage or redness. Right lowerl quadrant drain output is non feculent and only serosanguineous. Output is low. Objective Data Vital Signs Vital Signs: Vital Signs - 24 hr 03/17/22 09:32 03/17/22 12:13 03/17/22 12:25 Temperature 37.3 C 36.7 C Pulse Rate 58 L 99 75 Respiratory Rate 20 18 19 Blood Pressure 142/044 H 103/84 114/46 L Pulse Oximetry 94 100 98 Oxygen Delivery Room Air Simple Face Mask Room Air Oxygen Flow Rate 6 03/17/22 12:40 03/17/22 12:55 03/17/22 13:10 Temperature Pulse Rate 66 65 64 Respiratory Rate 17 16 16 Blood Pressure 118/50 L 117/41 L 112/41 L Pulse Oximetry 97 96 97 Oxygen Delivery Nasal Cannula Nasal Cannula Nasal Cannula Oxygen Flow Rate 2 2 2 03/17/22 13:25 03/17/22 13:40 03/17/22 13:55 Temperature 36.1 C L 36.1 C L Pulse Rate 64 65 64 Respiratory Rate 16 20 19 Blood Pressure 126/40 L 140/48 L 131/50 L Pulse Oximetry 97 98 100 Oxygen Delivery Nasal Cannula Oxygen Flow Rate 2 03/17/22 14:25 03/17/22 15:25 03/17/22 22:00 Temperature 36.0 C L 36.5 C 37.3 C Pulse Rate 64 68 63 Respiratory Rate 19 20 17 Blood Pressure 143/53 H 151/61 H 133/50 L Pulse Oximetry 99 97 98 Oxygen Delivery Oxygen Flow Rate 03/18/22 00:00 03/17/22 20:45 03/18/22 06:00 Temperature 37.2 C 36.3 C L Pulse Rate 60 54 L Respiratory Rate 18 17 Blood Pressure 132/51 L 147/58 H Pulse Oximetry 97 97 Oxygen Delivery Room Air Oxygen Flow Rate 03/18/22 09:23 Temperature 36.1 C L Pulse Rate 51 L Respiratory Rate 17 Blood Pressure 125/44 L Pulse Oximetry 98 Oxygen Delivery Oxygen Flow Rate Intake/Output Intake/Output: Intake & Output 03/15/22 03/16/22 03/17/22 03/18/22 23:59 23:59 23:59 23:59 Intake Total 3500 1100 Output Total 675 27 Balance 2825 1073 Meds/Results Medications: Active Medications Generic Name Dose Route Start Last Admin Trade Name Freq PRN Reason Stop Dose Admin Dextrose 12.5 gm 03/17/22 07:38 Dextrose 50% 25 Gm/50 Ml Syringe IV PUSH PRN PRN Hyp
[2022-03-18] MEDS: SODIUM CHLORIDE 0.9% IV 1,000 ML 75 ML IV CONT (09:48)
--- NOTE | 2022-03-18 10:37 | WPDANESPN ---
Anes - Prog Note Post-Op Date/Time: 03/18/22 10:37 Cardiovascular status: normal Respiratory status: normal Airway patency: baseline Mental status: baseline Post-Op hydration status: normal Vital Signs: Last Vital Signs Temp 36.1 C L 03/18/22 09:23 Pulse 51 L 03/18/22 09:23 Resp 17 03/18/22 09:23 BP 125/44 L 03/18/22 09:23 Pulse Ox 92 03/18/22 10:30 O2 Del Method Room Air 03/18/22 10:30 O2 Flow Rate 2 03/17/22 13:25 Pain Score (VAS): 0 I/O: Intake & Output 03/17/22 03/18/22 03/18/22 23:59 07:59 15:59 Intake Total 750 1100 300 Output Total 27 Balance 750 1073 300 Laboratory Tests 03/18/22 06:18 03/18/22 06:18 03/17/22 03/17/22 03/17/22 01:11 12:17 16:57 WBC RBC Hgb Hct MCV MCH MCHC RDW Plt Count MPV % Immature Plt Fraction Sodium Potassium Chloride Carbon Dioxide Anion Gap BUN Creatinine Estim Creat Clear Calc Estimated GFR Glucose POC Capillary Glucose 122 H 141 H Hemoglobin A1c 6.8 H Calcium Magnesium Total Bilirubin AST ALT Alkaline Phosphatase Total Protein Albumin 03/17/22 03/18/22 03/18/22 20:07 06:18 06:18 WBC 17.6 H RBC 3.48 L Hgb 11.3 L Hct 36.3 L MCV 104.3 H MCH 32.5 MCHC 31.1 L RDW 13.1 Plt Count 126 L MPV 11.2 H % Immature Plt Fraction 6.4 Sodium 132 L Potassium 3.5 Chloride 103 Carbon Dioxide 26 Anion Gap 3 L BUN 19 D Creatinine 1.60 H Estim Creat Clear Calc 47 Estimated GFR 42 L Glucose 131 H POC Capillary Glucose 183 H Hemoglobin A1c Calcium 7.7 L Magnesium 1.5 L Total Bilirubin 0.9 AST 25 ALT 15 Alkaline Phosphatase 54 Total Protein 6.0 L Albumin 3.1 L 03/18/22 08:12 WBC RBC Hgb Hct MCV MCH MCHC RDW Plt Count MPV % Immature Plt Fraction Sodium Potassium Chloride Carbon Dioxide Anion Gap BUN Creatinine Estim Creat Clear Calc Estimated GFR Glucose POC Capillary Glucose 121 H Hemoglobin A1c Calcium Magnesium Total Bilirubin AST ALT Alkaline Phosphatase Total Protein Albumin Post-procedural complaints: none Patient Feedback: Patient satisfied with anesthetic care.
[2022-03-18] MEDS: POTASSIUM CHLORIDE 20 MEQ TABLET 40 MEQ PO (11:07)
[2022-03-18] MEDS: MAGNESIUM SULF 2 GM/WATER 50ML 2 GM/50 ML BAG IVPB (11:07)
[2022-03-18 11:56] LABS: Glucose Point of Care 131 mg/dl (65-105)
[2022-03-18 17:02] LABS: Glucose Point of Care 137 mg/dl (65-105)
--- NOTE | 2022-03-18 17:50 | PM.IMPN ---
Progress Note: A&P Assessment and Plan (1) Acute appendicitis: Qualifiers: Acute appendicitis type: with localized peritonitis Appendicitis abscess presence: without abscess Appendicitis gangrene presence: without gangrene Appendicitis perforation presence: without perforation Qualified Code(s): K35.30 - Acute appendicitis with localized peritonitis, without perforation or gangrene Code(s): K35.80 - Unspecified acute appendicitis Status: Acute Assessment and Plan: Josiah Flores is a 76 year old male patient is a 76-year-old male with past medical history diabetes, hypertension, coronary artery disease, hyperlipidemia, proximal atrial fibrillation and history of skin cancer and patient seen by Oncology, patient presented with complaint of right lower quadrant pain had a CT scan abdomen showed patient has acute appendicitis patient seen by surgery service and was taken to OR for appendectomy which he tolerated and currently in the room, been consulted for medical management for patient with a diabetes, hypertension hyperlipidemia and coronary artery disease, I have started the patient on Lantus 10 units and sliding scale with hypoglycemia protocol, the patient's home medications reconcile will review and resume. currently patient's family present in the room and answered all their question. 03/18/2022 interval history: s/p appendectomy of perforated appendicitis, POD#1 patient continued to complain of abdominal, not passing any, denies any fever or chills however patient white counts are elevated, seen by surgery service recommended continue IV antibiotics until white counts close to normal, patient's is present in the room answered all her questions, continue to monitor. DVT prophylaxis and pain management per surgery service (2) Paroxysmal atrial fibrillation: Code(s): I48.0 - Paroxysmal atrial fibrillation Status: Acute Assessment and Plan: patient rate is controlled with amiodarone patient is not anticoagulated (3) Diabetes mellitus with chronic kidney disease: Code(s): E11.22 - Type 2 diabetes mellitus with diabetic chronic kidney disease Status: Acute Assessment and Plan: we have started the patient Lantus 10 units q.day and low sliding scale continue to monitor patient blood sugar and adjust her insulin as needed Subjective Date/time seen: 03/18/22 17:50 Josiah Flores is a 76 year old male patient is a 76-year-old male with past medical history diabetes, hypertension, coronary artery disease, hyperlipidemia, proximal atrial fibrillation and history of skin cancer and patient seen by Oncology, patient presented with complaint of right lower quadrant pain had a CT scan abdomen showed patient has acute appendicitis patient seen by surgery service and was taken to OR for appendectomy which he tolerated and currently in the room, been consulted for medical management for patient with a diabetes, hypertension hyperlipidemia and coronary artery disease, I have started the patient on Lantus 10 units and sliding scale with hypoglycemia protocol, the patient's home medications reconcile will review and resume. currently patient's family present in the room and answered all their question. 03/18/2022 interval history: s/p appendectomy of perforated appendicitis, POD#1 patient continued to complain of abdominal, not passing any, denies any fever or chills however patient white counts are elevated, seen by surgery service recommended continue IV antibiotics until white counts close to normal, patient's is present in the room answered all her questions, continue to monitor. Review of Systems Review of Systems: All systems reviewed & are unremarkable except as noted in HPI and below Exam Narrative: morbidly obese Patient is comfortable, NAD HEENT: eyes are clear and none icteric LUNGS: normal respiratory effort ABD: distended Lower extremities: no edema
[2022-03-18 22:36] LABS: Glucose Point of Care 141 mg/dl (65-105)
[2022-03-19] MEDS: SODIUM CHLORIDE 0.9% IV 1,000 ML 1000 ML IV CONT (02:41)
[2022-03-19 05:21] VITALS: BP 137/52; PULSE 52; RESP 18; TEMP 36.3; O2SAT 93
[2022-03-19 06:30] LABS: Hematocrit 36.3 % (42.0-52.0); Hemoglobin 11.1 g/dL (14.0-18.0); Immature Platelet Fraction Pct 6.3 % (0.9-11.2); Mean Corpuscular HGB Conc 30.6 g/dl (32-36); Mean Corpuscular Hemoglobin 32.6 pg (26-34); Mean Corpuscular Volume 106.5 fl (80-100); Mean Platelet Volume 10.9 fl (7.4-10.4); Platelet Count Result 128 k/mm3 (150-375); Red Blood Count 3.41 M/mm3 (4.6-6.20); Red Cell Distribution Width 13.1 % (11.5-14.5); White Blood Count 13.9 K/mm3 (4.5-10.0)
--- NOTE | 2022-03-19 06:42 | PC.NURSE ---
Patient resting quietly in bed throughout night. VSS and patient denied any pain or nausea at this time. Patient continues to tolerate PO well and voiding in adequate amounts. Patient condition remains stable and unchanged.
[2022-03-19 06:48] LABS: Alanine Aminotransferase 14 U/L (6-50); Albumin Level 2.9 g/dL (3.5-5.1); Alkaline Phosphatase 47 U/L (38-126); Anion Gap 1 mmol/L (8-16); Aspartate Amino Transferase 29 U/L (17-59); Bilirubin,Total 0.9 mg/dL (0.2-1.3); Blood Urea Nitrogen 19 mg/dL (9-20); Calcium 7.3 mg/dL (8.4-10.2); Carbon Dioxide 26 mmol/L (22-30); Chloride 105 mmol/L (98-107); Estimated CRCL calculation 47 ml/min; Estimated Glomerular Filt Rate 42; Glucose 116 mg/dL (65-110); Magnesium 2.1 mg/dL (1.6-2.3); Potassium 3.9 mmol/L (3.4-5.0); Sodium 132 mmol/L (137-145)
[2022-03-19 08:21] LABS: Glucose Point of Care 115 mg/dl (65-105)
[2022-03-19] MEDS: PANTOPRAZOLE SOD SESQUIHYDRATE 20 MG TAB PO (09:07)
[2022-03-19] MEDS: MAGNESIUM OXIDE 400 MG TABLET PO (09:07)
--- NOTE | 2022-03-19 09:44 | PM.PNGS ---
Progress Note: A&P Assessment and Plan (1) Perforated appendicitis: Code(s): K35.32 - Acute appendicitis with perforation, localized peritonitis, and gangrene, without abscess Status: Acute Assessment and Plan: Feeling better and white blood cell count is decreasing. Tolerating full liquids well. Will advance to diabetic diet. DAMARIS drain has only serous fluid. Will DC. Up walking more today. Continue IV Zosyn antibiotics. Making progress. (2) Diabetes mellitus with chronic kidney disease: Code(s): E11.22 - Type 2 diabetes mellitus with diabetic chronic kidney disease Status: Chronic Assessment and Plan: Hospitalist following, blood sugars satisfactory (3) Paroxysmal atrial fibrillation: Code(s): I48.0 - Paroxysmal atrial fibrillation Status: Chronic (4) Aortic valve stenosis: Code(s): I35.0 - Nonrheumatic aortic (valve) stenosis Status: Chronic (5) Obesity, morbid, BMI 40.0-49.9: Code(s): E66.01 - Morbid (severe) obesity due to excess calories Status: Chronic Subjective Subjective Date/Time Seen: 03/19/22 09:44 Post Op day: 2 Patient reports: feels better, pain is less, tolerating liquids well, voiding w/o difficulty (Complains of having to get up to urinate too often.), flatus, no bowel movement and afebrile Exam Const: General: comfortable and no acute distress; No confusion Orientation/consciousness: patient oriented x3 and No confusion GI: Inspection: non-distended, incision (Wounds healing well, DAMARIS serous fluid) and obesity GI Palp: Yes Soft to palpation, Yes Tenderness to palpation present (GI), No Guarding due to palpation present (GI), No Hernia present, No Palpable mass present and No Rebound tenderness present Auscultation: Hypoactive bowel sounds present Neuro: General: patient oriented x3, no focal motor deficits and No confusion Extrem: General: no calf tenderness and no edema Psych: Affect: normal affect Insight: Good insight present (Psych) Judgement: Good judgement present (Psych) Objective Data Vital Signs Vital Signs: Vital Signs - 24 hr 03/18/22 10:30 03/18/22 13:53 03/18/22 15:28 Temperature 36.6 C Pulse Rate 54 L Respiratory Rate 17 Blood Pressure 134/52 L Pulse Oximetry 92 96 Oxygen Delivery Room Air Room Air 03/18/22 21:30 03/19/22 05:21 Temperature 36.6 C 36.3 C L Pulse Rate 54 L 52 L Respiratory Rate 18 18 Blood Pressure 134/42 L 137/52 L Pulse Oximetry 95 93 Oxygen Delivery Intake/Output Intake/Output: Intake & Output 03/16/22 03/17/22 03/18/22 03/19/22 23:59 23:59 23:59 23:59 Intake Total 3500 2790 1966 Output Total 675 77 Balance 0854 8570 1966 Meds/Results Medications: Active Medications Generic Name Dose Route Start Last Admin Trade Name Freq PRN Reason Stop Dose Admin Dextrose 12.5 gm 03/17/22 07:38 Dextrose 50% 25 Gm/50 Ml Syringe IV PUSH PRN PRN Hypoglycemia Protocol Enoxaparin Sodium 40 mg 03/20/22 09:00 Enoxaparin 40 Mg/0.4 Ml Syringe SUB-Q DAILY RADHA Enoxaparin Sodium 40 mg 03/19/22 09:41 Enoxaparin 30 Mg/0.3 Ml Syringe SUB-Q 03/19/22 09:42 ONCE ONE Glucagon 1 mg 03/17/22 07:38 Glucagon For Inj 1 Mg Vial IM PRN PRN Hypoglycemia Protocol Glucose 15 gm 03/17/22 07:38 Glucose Oral Gel 15 Gm Of Glucse In 37.5 Gm Tube PO PRN PRN Hypoglycemia Protocol Hydromorphone HCl 1 mg 03/17/22 13:41 Hydromorphone Hcl Inj (*Crx) 1 Mg/Ml Syr IV PUSH Q3H PRN Pain Rated 7-10 Dextrose 1,000 mls @ 100 mls/hr 03/17/22 07:38 Dextrose 5% 1,000 Ml IVPB PRN PRN Hypoglycemia Protocol Piperacillin/Tazobactam/Dextrose 3.375 gm in 50 mls @ 100 mls/hr 03/17/22 18:00 03/19/22 05:26 Zosyn 3.375 Gm/D5w 50ml Pm IVPB 100 mls/hr Q6HR RADHA Administration Insulin Aspart 2 - 5 units 03/17/22 08:00 03/19/22 09:07 Insulin Aspart (*Bkc) 100 Units
[2022-03-19 11:48] LABS: Glucose Point of Care 127 mg/dl (65-105)
[2022-03-19] MEDS: ENOXAPARIN 40 MG/0.4 ML SYRINGE SUB-Q (12:25)
--- NOTE | 2022-03-19 13:00 | PM.IMPN ---
Progress Note: A&P Assessment and Plan (1) Acute appendicitis: Qualifiers: Acute appendicitis type: with localized peritonitis Appendicitis abscess presence: without abscess Appendicitis gangrene presence: without gangrene Appendicitis perforation presence: without perforation Qualified Code(s): K35.30 - Acute appendicitis with localized peritonitis, without perforation or gangrene Code(s): K35.80 - Unspecified acute appendicitis Status: Acute Assessment and Plan: Josiah Flores is a 76 year old male patient is a 76-year-old male with past medical history diabetes, hypertension, coronary artery disease, hyperlipidemia, proximal atrial fibrillation and history of skin cancer and patient seen by Oncology, patient presented with complaint of right lower quadrant pain had a CT scan abdomen showed patient has acute appendicitis patient seen by surgery service and was taken to OR for appendectomy which he tolerated and currently in the room, been consulted for medical management for patient with a diabetes, hypertension hyperlipidemia and coronary artery disease, I have started the patient on Lantus 10 units and sliding scale with hypoglycemia protocol, the patient's home medications reconcile will review and resume. currently patient's family present in the room and answered all their question. 03/19/2022 interval history: s/p appendectomy of perforated appendicitis, POD#2 patient continued to complain of abdominal, passing some gas no BM, tolerating full liquida, seen by surgery and advanced to diabetes diet, denies any fever or chills however patient white counts were elevated now trending down, seen by surgery service recommended continue IV antibiotics until white counts close to normal, will enourage patient to ambulate, patient with history of DM, started on Lantus 10units low sliding scale, blood sugars are close to target, will continue to monitor. DVT prophylaxis and pain management per surgery service (2) Paroxysmal atrial fibrillation: Code(s): I48.0 - Paroxysmal atrial fibrillation Status: Chronic Assessment and Plan: patient rate is controlled with amiodarone patient is not anticoagulated (3) Diabetes mellitus with chronic kidney disease: Code(s): E11.22 - Type 2 diabetes mellitus with diabetic chronic kidney disease Status: Chronic Assessment and Plan: we have started the patient Lantus 10 units q.day and low sliding scale continue to monitor patient blood sugar and adjust her insulin as needed Subjective Date/time seen: 03/19/22 13:00 Josiah Flores is a 76 year old male patient is a 76-year-old male with past medical history diabetes, hypertension, coronary artery disease, hyperlipidemia, proximal atrial fibrillation and history of skin cancer and patient seen by Oncology, patient presented with complaint of right lower quadrant pain had a CT scan abdomen showed patient has acute appendicitis patient seen by surgery service and was taken to OR for appendectomy which he tolerated and currently in the room, been consulted for medical management for patient with a diabetes, hypertension hyperlipidemia and coronary artery disease, I have started the patient on Lantus 10 units and sliding scale with hypoglycemia protocol, the patient's home medications reconcile will review and resume. currently patient's family present in the room and answered all their question. 03/19/2022 interval history: s/p appendectomy of perforated appendicitis, POD#2 patient continued to complain of abdominal, passing some gas no BM, tolerating full liquida, seen by surgery and advanced to diabetes diet, denies any fever or chills however patient white counts were elevated now trending down, seen by surgery service recommended continue IV antibiotics until white counts close to normal, will enourage patient to ambulate, patient with history of DM, started on Lantus 10units low sliding scal
[2022-03-19 14:00] VITALS: BP 131/52; PULSE 54; RESP 20; TEMP 36.1; O2SAT 98
[2022-03-19 16:51] LABS: Glucose Point of Care 148 mg/dl (65-105)
[2022-03-19 21:49] VITALS: BP 142/49; PULSE 60; RESP 18; TEMP 36.8; O2SAT 94
[2022-03-19 22:33] LABS: Glucose Point of Care 158 mg/dl (65-105)
[2022-03-20 06:00] VITALS: BP 150/63; PULSE 54; RESP 16; TEMP 36; O2SAT 98
[2022-03-20 06:36] LABS: Hematocrit 35.8 % (42.0-52.0); Hemoglobin 11.1 g/dL (14.0-18.0); Mean Corpuscular Hemoglobin 32.6 pg (26-34); Mean Corpuscular Volume 105.3 fl (80-100); Mean Platelet Volume 10.5 fl (7.4-10.4); Platelet Count Result 137 k/mm3 (150-375); Red Cell Distribution Width 12.8 % (11.5-14.5); White Blood Count 10.1 K/mm3 (4.5-10.0)
[2022-03-20 06:56] LABS: Alanine Aminotransferase 15 U/L (6-50); Albumin Level 2.8 g/dL (3.5-5.1); Alkaline Phosphatase 51 U/L (38-126); Anion Gap 1 mmol/L (8-16); Aspartate Amino Transferase 26 U/L (17-59); Bilirubin,Total 0.7 mg/dL (0.2-1.3); Blood Urea Nitrogen 20 mg/dL (9-20); Calcium 7.6 mg/dL (8.4-10.2); Carbon Dioxide 27 mmol/L (22-30); Chloride 106 mmol/L (98-107); Estimated CRCL calculation 50 ml/min; Estimated Glomerular Filt Rate 46; Glucose 110 mg/dL (65-110); Potassium 3.8 mmol/L (3.4-5.0); Sodium 134 mmol/L (137-145)
[2022-03-20 07:56] LABS: Glucose Point of Care 118 mg/dl (65-105)
[2022-03-20] MEDS: PANTOPRAZOLE SOD SESQUIHYDRATE 20 MG TAB PO (09:41)
[2022-03-20] MEDS: MAGNESIUM OXIDE 400 MG TABLET PO (09:41)
[2022-03-20] MEDS: ENOXAPARIN 40 MG/0.4 ML SYRINGE SUB-Q (09:41)
--- NOTE | 2022-03-20 11:02 | PCOTNOTE ---
Attempted to see pt for Occupational Therapy treatment. Pt declined to participate due to possibility of d/c today and wanting to take a nap. Pt and spouse do not have any questions at this time.
--- NOTE | 2022-03-20 11:09 | PM.IMPN ---
Progress Note: A&P Assessment and Plan (1) Acute appendicitis: Qualifiers: Acute appendicitis type: with localized peritonitis Appendicitis abscess presence: without abscess Appendicitis gangrene presence: without gangrene Appendicitis perforation presence: without perforation Qualified Code(s): K35.30 - Acute appendicitis with localized peritonitis, without perforation or gangrene Code(s): K35.80 - Unspecified acute appendicitis Status: Acute Assessment and Plan: Josiah Flores is a 76 year old male patient is a 76-year-old male with past medical history diabetes, hypertension, coronary artery disease, hyperlipidemia, proximal atrial fibrillation and history of skin cancer and patient seen by Oncology, patient presented with complaint of right lower quadrant pain had a CT scan abdomen showed patient has acute appendicitis patient seen by surgery service and was taken to OR for appendectomy which he tolerated and currently in the room, been consulted for medical management for patient with a diabetes, hypertension hyperlipidemia and coronary artery disease, I have started the patient on Lantus 10 units and sliding scale with hypoglycemia protocol, the patient's home medications reconcile will review and resume. currently patient's family present in the room and answered all their question. 03/20/2022 interval history: s/p appendectomy of perforated appendicitis, POD#3 patient was complain of abdominal, passing some gas had no BM, was tolerating full liquid diet, was seen by surgery on 03/19 and advanced to diabetes diet, today patient states pain is better he had a BM and tolerating his diet, denies any fever or chills however patient white counts were elevated now trending down, seen by surgery service recommended continue IV antibiotics until white counts close to normal, will enourage patient to ambulate, patient with history of DM, started on Lantus 10units low sliding scale, blood sugars are close to target, will continue to monitor. DVT prophylaxis and pain management per surgery service (2) Paroxysmal atrial fibrillation: Code(s): I48.0 - Paroxysmal atrial fibrillation Status: Chronic Assessment and Plan: patient rate is controlled with amiodarone patient is not anticoagulated (3) Diabetes mellitus with chronic kidney disease: Code(s): E11.22 - Type 2 diabetes mellitus with diabetic chronic kidney disease Status: Chronic Assessment and Plan: we have started the patient Lantus 10 units q.day and low sliding scale continue to monitor patient blood sugar and adjust her insulin as needed Subjective Date/time seen: 03/20/22 11:09 03/20/2022 interval history: s/p appendectomy of perforated appendicitis, POD#3 patient was complain of abdominal, passing some gas had no BM, was tolerating full liquid diet, was seen by surgery on 03/19 and advanced to diabetes diet, today patient states pain is better he had a BM and tolerating his diet, denies any fever or chills however patient white counts were elevated now trending down, seen by surgery service recommended continue IV antibiotics until white counts close to normal, will enourage patient to ambulate, patient with history of DM, started on Lantus 10units low sliding scale, blood sugars are close to target, will continue to monitor. DVT prophylaxis and pain management per surgery service Review of Systems Review of Systems: All systems reviewed & are unremarkable except as noted in HPI and below Exam Narrative: morbidly obese Patient is comfortable, NAD HEENT: eyes are clear and none icteric LUNGS: normal respiratory effort ABD: distended Lower extremities: no edema SKIN: nonjaundiced Neuro: grossly intact. Objective Data Vital Signs Vital Signs: Vital Signs - 24 hr 03/19/22 14:00 03/19/22 21:49 03/20/22 06:00 Temperature 96.9 F L 98.2 F 96.8 F L Pulse Rate 54 L 60 54 L Respiratory Rate 20 18 16
--- NOTE | 2022-03-20 11:38 | PM.DS ---
DS: Admitting Diagnosis Discharge Date 03/20/2022 Admitting Diagnosis Acute appendicitis Insulin dependent diabetes Atrial fibrillation Hypertension History prostate cancer DS: Discharge Diagnosis Discharge Diagnosis (1) Perforated appendicitis: Code(s): K35.32 - Acute appendicitis with perforation, localized peritonitis, and gangrene, without abscess Status: Acute Assessment and Plan: Status post laparoscopic appendectomy 03/17/[address] Sanchez (2) Diabetes mellitus with chronic kidney disease: Code(s): E11.22 - Type 2 diabetes mellitus with diabetic chronic kidney disease Status: Chronic Assessment and Plan: Insulin-dependent (3) Paroxysmal atrial fibrillation: Code(s): I48.0 - Paroxysmal atrial fibrillation Status: Chronic Assessment and Plan: On amiodarone. Not on chronic anticoagulation. (4) Obesity, morbid, BMI 40.0-49.9: Code(s): E66.01 - Morbid (severe) obesity due to excess calories Status: Chronic Assessment and Plan: BMI 40 (5) Prostate cancer: Code(s): C61 - Malignant neoplasm of prostate Status: Chronic Assessment and Plan: Treated with radiation therapy (6) Status post bariatric surgery: Code(s): Z98.84 - Bariatric surgery status Status: Chronic Assessment and Plan: History Noman-en-Y gastric bypass DS: Summary Hospital Course Hospital Course: Patient went to surgery from the emergency room and underwent laparoscopic appendectomy per Dr. Sanchez on 03/17/2022. He was noted to have perforated appendicitis and a DAMARIS drain was placed in the right lower quadrant after surgery. He was treated with IV Zosyn antibiotics postoperatively. He was started on liquids on postop day 1. And tolerated them well. He had little DAMARIS drain output and the output was serous. The drain was removed on postop day 2. 03/19/2022. He was advance to diabetic diet on postop day 2. He was comfortable with literally no analgesics on postop day 3., 03/20/2022. His renal function was stable after surgery. He was anxious to go home and able to be discharged on postop day 3. 03/20/2022 in improved condition. Status at Discharge Functional status at discharge: independent ambulation Overall status at discharge: patient is progressing back to baseline Time Spent with Patient Time attestation: Total time spent providing and/or coordinating discharge services: Time spent: Less than 30 minutes Exam Const: General: comfortable and no acute distress; No confusion Orientation/consciousness: patient oriented x3 and No confusion GI: Inspection: incision (All incisions healing well, drain site with minimal drainage) and obesity GI Palp: Yes Soft to palpation, Yes Tenderness to palpation present (GI) (Minimal, appropriate tenderness), No Guarding due to palpation present (GI) and No Rebound tenderness present Auscultation: normal bowel sounds Neuro: General: patient oriented x3, no focal motor deficits and No confusion Extrem: General: no calf tenderness and no edema Psych: Affect: normal affect Insight: Good insight present (Psych) Judgement: Good judgement present (Psych) DS: Data Data Completed and Pending Completed studies during hospitalization: Pending at discharge 03/17/22 11:31 Surgical [PTH] Routine Labs on day of discharge: Labs from last 24 hours 03/20/22 03/20/22 03/20/22 07:54 06:17 06:17 WBC 10.1 H RBC 3.40 L Hgb 11.1 L Hct 35.8 L MCV 105.3 H MCH 32.6 MCHC 31.0 L RDW 12.8 Plt Count 137 L MPV 10.5 H % Immature Plt Fraction 6.0 Sodium 134 L Potassium 3.8 Chloride 106 Carbon Dioxide 27 Anion Gap 1 L BUN 20 Creatinine 1.50 H Estim Creat Clear Calc 50 Estimated GFR 46 L Glucose 110 POC Capillary Glucose 118 H Calcium 7.6 L Magnesium 2.0 Total Bilirubin 0.7 AST 26 ALT 15 Alkaline Phosphatase
[2022-03-20 11:41] LABS: Glucose Point of Care 130 mg/dl (65-105)
== END 2022-03-20 13:15 | disposition home or self-care (01) | DRG 339 ==
LOC: ANHED 02:41 → ANH3MEDSUR 06:51
PROVIDERS: Family Medicine; Physician Assistant; Admitting Provider Surgery; Emergency Provider Emergency Medicine; PCP Internal Medicine; Visit Provider Surgery
PROC: 0DTJ4ZZ Resection of Appendix, Percutaneous Endoscopic Approach (ICD-10-PCS; CPT 44970; principal; 2022-03-17 10:30)
DX: K35.32 Acute appendicitis with perforation, localized peritonitis, and gangrene, without abscess (principal); Z68.41 Body mass index [BMI] 40.0-44.9, adult; I12.9 Hypertensive chronic kidney disease with stage 1 through stage 4 chronic kidney disease, or unspecified chronic kidney disease; N18.9 Chronic kidney disease, unspecified; E11.22 Type 2 diabetes mellitus with diabetic chronic kidney disease; I48.0 Paroxysmal atrial fibrillation; E66.01 Morbid (severe) obesity due to excess calories; C61 Malignant neoplasm of prostate; Z20.822 Contact with and (suspected) exposure to COVID-19; I25.10 Atherosclerotic heart disease of native coronary artery without angina pectoris; E78.5 Hyperlipidemia, unspecified; I35.0 Nonrheumatic aortic (valve) stenosis; Z85.828 Personal history of other malignant neoplasm of skin; Z98.84 Bariatric surgery status; Z95.5 Presence of coronary angioplasty implant and graft; I25.2 Old myocardial infarction; Z87.891 Personal history of nicotine dependence; Z85.46 Personal history of malignant neoplasm of prostate
CPT/HCPCS: 36415; 74177; 80053; 81001; 82948; 83036; 83690; 83735; 85025; 85027; 85055; 87086; 87636; 88304; 93005; 96361; 96365; 96366; 96367; 96375; 96376; 97161; 97165; 99285; A9270; G0378; J0131; J0330; J1650; J1815; J2270; J2370; J2405; J2543; J2704; J3010; J3475; J7030; J7120; Q9967

== ENCOUNTER 2022-03-24 14:18 | Outpatient (CLI) | payer OTHER, SELFPAY | END 2022-03-24 14:19 | disposition home or self-care (01) | LOC: ANHAUDIO 14:19 | PROVIDERS: PCP Internal Medicine; Visit Provider Nurse Practitioner | DX: H90.6 Mixed conductive and sensorineural hearing loss, bilateral (principal) | CPT/HCPCS: 92557; 92567 ==

== ENCOUNTER 2022-06-08 13:39 | Outpatient (CLI) | payer OTHER, SELFPAY ==
--- NOTE | ~2022-06-08 | XR_ITS ---
XR hip LT 2V w AP pelvis DATE: 06/08/2022 13:58 INDICATION: Left hip pain following a fall one week ago TECHNIQUE: AP pelvis. AP and lateral views of left hip COMPARISON: None FINDINGS: Degenerative disc disease of the lumbar spine. Normal alignment at the pubic symphysis and sacroiliac joints. No pelvic fracture or bone destruction is evident. Hip joint spaces are relatively symmetric. No fracture or dislocation, avascular necrosis or bone destruction of the left hip is detected. Bilateral iliac and femoral artery calcifications are noted. Surgical clips overlie the prostate bed. IMPRESSION: No fracture or dislocation of the left hip is detected Reviewed, dictated and finalized at location A.
== END 2022-06-08 13:40 | disposition home or self-care (01) ==
LOC: ANHIMG 13:45
PROVIDERS: PCP Internal Medicine; Visit Provider Nurse Practitioner Family
DX: M25.552 Pain in left hip (principal)
CPT/HCPCS: 73502

== ENCOUNTER 2022-06-16 09:40 | Outpatient (CLI) | payer OTHER, SELFPAY ==
--- NOTE | ~2022-06-16 | XR_ITS ---
Left Knee Technique: AP, lateral, and sunrise views were obtained. Clinical History: Pain Findings: No fracture or dislocation is seen. There is medial compartment narrowing. Small tricompart mental osteophyte are present. There is chondrocalcinosis of the menisci. No joint effusion is seen. Impression: Moderate to advanced degenerative change of the medial compartment and mild degenerative change of th e lateral and patellofemoral compartments. Chondrocalcinosis of the menisci. Reviewed, dictated and finalized at location M. Impression: Moderate to advanced degenerative change of the medial compartment and mild deg enerative change of the lateral and patellofemoral compartments. Chondrocalcinosis of the menisci.
--- NOTE | ~2022-06-16 | XR_ITS ---
AP and lateral views of the left tibia/fibula Clinical History: Pain Findings: No acute fracture or dislocation is seen. Osseous alignment is anatomic. Mild tricompartmen xin degenerative change at the left knee noted. Soft tissues are unremarkable. Impression: No fracture or dislocation. Mild tricompartmental degenerative change noted at the left knee. Reviewed, dictated and finalized at [facility]. Impression: No fracture or dislocation. Mild tricompartmental degenerative change noted at the left knee.
--- NOTE | ~2022-06-16 | XR_ITS ---
Lumbosacral Spine: AP, oblique, and lateral views Clinical History: Pain Findings: The normal lordotic curve is maintained. No fracture or subluxation seen. Minimal degenerat giuseppe disc change present at L3-L4 and L4-L5. There is minimal facet joint degenerative change at L4-L5 and L5-S1. The sacroiliac joints are normally outlined. Impression: Minimal degenerative spondylosis, as above. Reviewed, dictated and finalized at location M. Impression: Minimal degenerative spondylosis, as above.
== END 2022-06-16 09:41 | disposition home or self-care (01) ==
PROVIDERS: PCP Internal Medicine; Visit Provider Nurse Practitioner Family
DX: M25.552 Pain in left hip (principal); M11.262 Other chondrocalcinosis, left knee; M22.2X2 Patellofemoral disorders, left knee
CPT/HCPCS: 72110; 73564; 73590

== ENCOUNTER 2022-07-15 13:32 | Outpatient (CLI) | payer OTHER, SELFPAY ==
[2022-07-15 13:48] LABS: Basophils Percent Auto 0.2 % (0.2-1.2); Eosinophils Absolute Auto 0.2 K/mm3 (0-0.3); Eosinophils Percent Auto 2.1 % (0-4.4); Hemoglobin 12.5 g/dL (14.0-18.0); Immature Granulocyte Absolute 0.08 K/mm3 (0.00-0.031); Immature Granulocyte Percent A 0.8 % (0-0.5); Lymphocytes Absolute Auto 3.74 K/mm3 (0.9-3.2); Lymphocytes Percent Auto 37.4 % (18.3-44.2); Mean Corpuscular HGB Conc 31.3 g/dl (32-36); Mean Corpuscular Hemoglobin 33.5 pg (26-34); Mean Corpuscular Volume 107.2 fl (80-100); Mean Platelet Volume 10.4 fl (7.4-10.4); Monocytes Absolute Auto 0.6 K/mm3 (0.1-0.6); Monocytes Percent Auto 5.5 % (2.6-8.5); Neutrophils Absolute Auto 5.4 K/mm3 (1.3-6.7); Platelet Count Result 145 k/mm3 (150-375); Red Blood Count 3.73 M/mm3 (4.6-6.20); Red Cell Distribution Width 13.2 % (11.5-14.5)
[2022-07-15 16:19] LABS: Anion Gap 9 mmol/L (8-16); Blood Urea Nitrogen 49 mg/dL (9-20); Calcium 9.1 mg/dL (8.4-10.2); Carbon Dioxide 25 mmol/L (22-30); Chloride 104 mmol/L (98-107); Estimated Glomerular Filt Rate 33; Glucose 153 mg/dL (65-110); Potassium 4.6 mmol/L (3.4-5.0); Sodium 138 mmol/L (137-145)
== END 2022-07-15 13:33 | disposition home or self-care (01) ==
LOC: ANHLAB 13:33
PROVIDERS: PCP Family Medicine; Visit Provider Internal Medicine Hematology & Oncology
DX: C91.10 Chronic lymphocytic leukemia of B-cell type not having achieved remission (principal)
CPT/HCPCS: 36415; 80048; 85025

== ENCOUNTER 2022-09-30 10:47 | Outpatient (CLI) | payer OTHER, SELFPAY ==
[2022-09-30 11:26] LABS: Albumin Level 4.2 g/dL (3.5-5.1); Anion Gap 5 mmol/L (8-16); Blood Urea Nitrogen 41 mg/dL (9-20); Calcium 9.1 mg/dL (8.4-10.2); Carbon Dioxide 28 mmol/L (22-30); Chloride 103 mmol/L (98-107); Estimated Glomerular Filt Rate 35; Glucose 77 mg/dL (65-110); Phosphorus 4.1 mg/dL (2.5-4.5); Potassium 4.7 mmol/L (3.4-5.0); Sodium 136 mmol/L (137-145)
[2022-09-30 11:33] LABS: Parathyroid Intact 91.2 pg/mL (7.5-53.5)
[2022-09-30 11:38] LABS: Vitamin D 25 Hydroxy 43.2 ng/mL
[2022-09-30 13:47] LABS: Creatinine Urine 72.4 mg/dL; Total Protein Urine Random 19 mg/dL; Ur Ttl Prot Creatinine Ratio 0.26 mg/mg (0-0.20)
== END 2022-09-30 10:48 | disposition home or self-care (01) ==
PROVIDERS: PCP Nurse Practitioner Family; Visit Provider Internal Medicine Nephrology
DX: I12.9 Hypertensive chronic kidney disease with stage 1 through stage 4 chronic kidney disease, or unspecified chronic kidney disease (principal); N18.32 Chronic kidney disease, stage 3b; E11.22 Type 2 diabetes mellitus with diabetic chronic kidney disease; N25.81 Secondary hyperparathyroidism of renal origin; E55.9 Vitamin D deficiency, unspecified; R80.9 Proteinuria, unspecified
CPT/HCPCS: 36415; 80069; 82306; 82570; 83970; 84156; 86225; 86334; 86335

== ENCOUNTER 2023-02-23 13:26 | Emergency (ER) | payer OTHER, SELFPAY ==
[2023-02-23 13:43] VITALS: BP 140/51; PULSE 52; RESP 14; TEMP 36.9; O2SAT 97
--- NOTE | 2023-02-23 13:46 | ED.WOUNDLAC ---
HPI - Wound/Laceration General Chief Complaint: Wound/Laceration Stated Complaint: Left Hand Laceration Time Seen by Provider: 02/23/23 13:47 Source: patient, RN notes reviewed and old records reviewed Mode of arrival: ambulatory Limitations: no limitations History of Present Illness HPI narrative: Patient presents with a laceration to his left hand palmar aspect 3rd finger. States that he was using a brand new knife cutting a piece of ham when he sliced his finger. Bleeding is controlled. Happened approximately 1:00 p.m. today. Per medical record last Tdap 12/05/16 Patient tetanus UTD: No Related Data Home Medications Medication Instructions Recorded Confirmed aspirin 81 mg tablet,delayed 81 mg PO DAILY 05/10/19 02/13/23 release (Adult Low Dose Aspirin) vitamin B complex (B 1 tablet PO DAILY 09/04/19 02/13/23 Complex-Vitamin B12 tablet) amiodarone 200 mg tablet 200 mg PO DAILY 08/18/20 02/13/23 olmesartan 20 mg tablet 20 mg PO DAILY 06/24/21 02/13/23 omega-3 fatty acids-fish oil 360 1 cap PO DAILY 03/23/22 02/13/23 mg-1,200 mg capsule (Fish Oil) hydrochlorothiazide 12.5 mg capsule 25 mg PO DAILY 08/19/22 02/13/23 blood sugar diagnostic (Contour See Rx Instructions .Route .COMPLEX 09/20/22 02/13/23 Test Strips) calcium citrate-vitamin D3 200 1 tablet PO DAILY 02/13/23 mg-200 unit tablet Allergies Allergy/AdvReac Type Severity Reaction Status Date / Time alcohol Allergy Severe Rash Verified 02/13/23 13:25 [From Mastisol Liquid Adhesive] gum mastic Allergy Severe Rash Verified 02/13/23 13:25 [From Mastisol Liquid Adhesive] methyl salicylate Allergy Severe Rash Verified 02/13/23 13:25 [From Mastisol Liquid Adhesive] storax Allergy Severe Rash Verified 02/13/23 13:25 [From Mastisol Liquid Adhesive] codeine AdvReac Unknown Vomiting Verified 02/13/23 13:25 Review of Systems Review of Systems: All systems reviewed & are unremarkable except as noted in HPI and below Constitutional: Constitutional: Reports no additional constitutional complaints Eyes: Eyes: Reports no additional eye complaints ENT: Reports system reviewed and no additional complaints, except as documented Cardiovascular: Cardiovascular: Reports no additional cardiovascular complaints, Denies chest pain and Denies dyspnea Respiratory: Respiratory: Reports no additional respiratory complaints, Denies chest congestion, Denies cough and Denies dyspnea Gastrointestinal: Gastrointestinal: Reports no additional gastrointestinal complaints, Denies abdominal pain, Denies nausea and Denies vomiting Musculoskeletal: Musculoskeletal: Reports no additional musculoskeletal complaints Integumentary/Breasts: Skin/Breast: Reports as per HPI and Reports wounds Neurologic: Reports system reviewed and no additional complaints, except as documented Psychiatric: Psychiatric: Reports no additional psychiatric complaints Allergic/Immunologic: Allergic/Immunologic: Reports no additional allergic/immunologic complaints [facility] Past Medical History Medical History Aortic valve stenosis CAD (coronary artery disease) Colonoscopy planned Diabetes mellitus Heart attack Hernia History of heart attack History of IL (myocardial infarction) HTN (hypertension) with goal to be determined Hyperlipidemia Incarcerated umbilical hernia Paroxysmal atrial fibrillation Pneumonia Screening for colon cancer Skin cancer SVT (supraventricular tachycardia) Tachycardia-bradycardia syndrome Surgical History Surgical History H/O colonoscopy with polypectomy 09/2020 - findings of transverse colon polyp that was excised and small internal hemorrhoids H/O heart artery stent 2016 H/O hernia repair Right inguinal hernia repair in 1971 Recurrent right inguinal hernia repair with mesh in the last 1-2 years History of appendect
[2023-02-23] MEDS: TETANUS/DIPHTHERIA TOXOIDS ADSORB 0.5 ML VIAL (*BKC) IM (14:08)
== END 2023-02-23 14:44 | disposition home or self-care (01) ==
PROVIDERS: Emergency Provider Nurse Practitioner; PCP Nurse Practitioner Family
DX: S61.213A Laceration without foreign body of left middle finger without damage to nail, initial encounter (principal); I25.10 Atherosclerotic heart disease of native coronary artery without angina pectoris; I25.2 Old myocardial infarction; E78.5 Hyperlipidemia, unspecified; I48.0 Paroxysmal atrial fibrillation; I10 Essential (primary) hypertension; E11.9 Type 2 diabetes mellitus without complications; Z23 Encounter for immunization; Z87.891 Personal history of nicotine dependence; W26.0XXA Contact with knife, initial encounter
CPT/HCPCS: 12001; 90471; 90714; 99212; G0463

== ENCOUNTER 2023-07-19 09:12 | Outpatient (CLI) | payer OTHER, SELFPAY ==
[2023-07-19 09:32] LABS: Basophils Percent Auto 0.4 % (0.2-1.2); Eosinophils Absolute Auto 0.3 K/mm3 (0-0.3); Eosinophils Percent Auto 2.2 % (0-4.4); Hemoglobin 11.5 g/dL (14.0-18.0); Immature Granulocyte Absolute 0.07 K/mm3 (0.00-0.031); Immature Granulocyte Percent A 0.6 % (0-0.5); Lymphocytes Absolute Auto 5.63 K/mm3 (0.9-3.2); Lymphocytes Percent Auto 50.3 % (18.3-44.2); Mean Corpuscular HGB Conc 31.1 g/dl (32-36); Mean Corpuscular Hemoglobin 33.2 pg (26-34); Mean Corpuscular Volume 106.9 fl (80-100); Mean Platelet Volume 9.9 fl (7.4-10.4); Monocytes Absolute Auto 0.7 K/mm3 (0.1-0.6); Monocytes Percent Auto 6.3 % (2.6-8.5); Neutrophils Absolute Auto 4.5 K/mm3 (1.3-6.7); Neutrophils Percent Auto 40.2 % (45.5-73.1); Platelet Count Result 141 k/mm3 (150-375); Red Blood Count 3.46 M/mm3 (4.6-6.20); Red Cell Distribution Width 12.6 % (11.5-14.5); White Blood Count 11.2 K/mm3 (4.5-10.0)
[2023-07-19 09:36] LABS: Blood Urea Nitrogen 50 mg/dL (8-26); Carbon Dioxide 28 mmol/L (22-30); Chloride 102 mmol/L (98-109); Estimated Glomerular Filt Rate 23; Glucose 140 mg/dL (70-105); Ionized Calcium (POC) 1.22 mmol/L (1.11-1.31); Potassium 4.6 mmol/L (3.5-4.9); Sodium 141 mmol/L (138-146)
[2023-07-19 11:07] LABS: Alanine Aminotransferase 24 U/L (6-50); Albumin Level 4.2 g/dL (3.5-5.1); Alkaline Phosphatase 73 U/L (38-126); Anion Gap 6 mmol/L (4-12); Aspartate Amino Transferase 37 U/L (17-59); Bilirubin,Total 0.7 mg/dL (0.2-1.3); Blood Urea Nitrogen 57 mg/dL (9-20); Calcium 9.3 mg/dL (8.4-10.2); Carbon Dioxide 30 mmol/L (22-30); Chloride 104 mmol/L (98-107); Estimated Glomerular Filt Rate 28; Glucose 141 mg/dL (65-110); Lactate Dehydrogenase 236 U/L (120-246); Potassium 4.5 mmol/L (3.4-5.0); Sodium 140 mmol/L (137-145)
== END 2023-07-19 09:13 | disposition home or self-care (01) ==
LOC: ANHLAB 09:13
PROVIDERS: PCP Nurse Practitioner Family; Visit Provider Internal Medicine Hematology & Oncology
DX: C91.10 Chronic lymphocytic leukemia of B-cell type not having achieved remission (principal)
CPT/HCPCS: 36415; 80047; 80053; 83615; 85025

== ENCOUNTER 2023-08-05 08:06 | Outpatient (CLI) | payer OTHER, SELFPAY ==
--- NOTE | ~2023-08-05 | CT_ITS ---
Noncontrast CT scan of the lumbar spine CLINICAL HISTORY: Dizziness and giddiness TECHNIQUE: Axial noncontrast imaging of the lumbar spine was performed. Sagittal and coronal reformat ervin images were constructed. Dose reduction technique was used on this scan by utilizing automated ex posure control and iterative reconstruction technique. The dose-length product (DLP) was 1369.61 mGy- cm. FINDINGS: There is no fracture or subluxation of the lumbar spine. Vertebral bodies maintain normal h eight and alignment. At L1-L2, there is no disc bulge or herniation. There is minimal facet joint degenerative change. No spinal canal stenosis. There is probable mild bilateral neural foraminal narrowing. At L2-L3, there is minimal disc bulge with mild to moderate facet arthropathy. No central canal steno sis. There is mild to moderate bilateral neural foraminal narrowing. At L3-L4, there is moderate to advanced degenerative disc change. Disc bulge and facet arthropathy re sult in moderate to possibly severe spinal canal stenosis/thecal sac compression. There is severe rig ht neural foraminal narrowing and moderate to severe left neural foraminal narrowing. At L4-L5, disc bulge and facet arthropathy result in probable moderate to severe spinal canal stenosi s/thecal sac compression. There is moderate to severe bilateral neural foraminal narrowing. At L5-S1, there is mild disc bulge. No pedro spinal canal stenosis. There is moderate right neural fo raminal narrowing, and mild left neural foraminal narrowing. Paravertebral soft tissues are unremarkable. Impression: Severe degenerative spondylosis at L3-L4 and L4-L5, as detailed above. Mild to mild/moderate degenerative changes remainder of the lumbar spine, as above. Reviewed, dictated and finalized at [facility] M. Impression: Severe degenerative spondylosis at L3-L4 and L4-L5, as detailed above. Mild to mild/moderate degenerative changes remainder of the lumbar spine, as ab ove.
--- NOTE | ~2023-08-05 | CT_ITS ---
EXAMINATION: CT brain wo con DATE: 08/05/2023 08:31 INDICATION: Dizziness. Giddiness. 2 falls in the last month. TECHNIQUE: Computed tomography (CT) of the head was performed without intravenous contrast. The mA wa s adjusted according to patient size. Iterative reconstruction technique was employed. Exam dose: 60 5.33 mGy-cm total exam DLP. COMPARISON: 11/25/2021 CT brain FINDINGS: Bilateral vertebral artery, basilar artery. And bilateral carotid siphon internal carotid a rtery calcifications. There is nonspecific diminished attenuation of the cerebral white matter, likely due to chronic small vessel ischemic changes. No intracranial mass lesion or hemorrhage. 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 Mildly prominent central and cortical cerebral atrophy and cerebellar atrophy. No subdural or epidural hematoma. Minimal fluid in the right mastoid air cells. The mastoid air cells are otherwise unremarkable. There is mild patchy soft tissue thickening in ethmoid air cells bilaterally. The included paranasal sinus es otherwise are unremarkable. No fracture or bone destruction of the cranial vault. There is asymmetric diminished depth of extracranial soft tissues in the lateral right frontal area, presumably due to resection of reported skin cancer lesion. 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 Reviewed, dictated and finalized at location [facility]. 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
[2023-08-05 09:22] LABS: Iron 74 ug/dL (49-181)
[2023-08-05 09:31] LABS: Hemoglobin A1C 6.6 % (<5.7); Percent Iron Saturation 32 % (20-50)
[2023-08-07 13:04] LABS: Free T4 Q 0.3 ng/dL (0.8-1.8)
[2023-08-09 14:43] LABS: Thyroid Peroxidase Antibodies <1
[2023-08-09 15:07] LABS: TSH QUEST 115.83 mIU/L (0.40-4.50)
== END 2023-08-05 08:07 | disposition home or self-care (01) ==
PROVIDERS: PCP Nurse Practitioner Family; Visit Provider Nurse Practitioner Family
DX: D64.9 Anemia, unspecified (principal); M79.605 Pain in left leg; M79.669 Pain in unspecified lower leg; R42 Dizziness and giddiness; R53.83 Other fatigue; W19.XXXA Unspecified fall, initial encounter; E11.41 Type 2 diabetes mellitus with diabetic mononeuropathy; Z79.4 Long term (current) use of insulin; I67.2 Cerebral atherosclerosis
CPT/HCPCS: 36415; 70450; 72131; 83036; 83540; 83550; 84481; 86376

== ENCOUNTER 2024-01-23 10:13 | Outpatient (CLI) | payer OTHER, SELFPAY ==
[2024-01-23 10:32] LABS: Basophils Percent Auto 0.3 % (0.2-1.2); Eosinophils Absolute Auto 0.1 K/mm3 (0-0.3); Hematocrit 38.4 % (42.0-52.0); Hemoglobin 12.1 g/dL (14.0-18.0); Immature Granulocyte Absolute 0.08 K/mm3 (0.00-0.031); Immature Granulocyte Percent A 0.7 % (0-0.5); Lymphocytes Absolute Auto 5.25 K/mm3 (0.9-3.2); Lymphocytes Percent Auto 45.5 % (18.3-44.2); Mean Corpuscular HGB Conc 31.5 g/dl (32-36); Mean Corpuscular Hemoglobin 32.8 pg (26-34); Mean Corpuscular Volume 104.1 fl (80-100); Mean Platelet Volume 10.1 fl (7.4-10.4); Monocytes Absolute Auto 0.7 K/mm3 (0.1-0.6); Monocytes Percent Auto 6.4 % (2.6-8.5); Neutrophils Absolute Auto 5.3 K/mm3 (1.3-6.7); Neutrophils Percent Auto 46.1 % (45.5-73.1); Platelet Count Result 181 k/mm3 (150-375); Red Blood Count 3.69 M/mm3 (4.6-6.20); Red Cell Distribution Width 12.4 % (11.5-14.5); White Blood Count 11.5 K/mm3 (4.5-10.0)
[2024-01-23 10:33] LABS: Blood Urea Nitrogen 42 mg/dL (8-26); Carbon Dioxide 23 mmol/L (22-30); Chloride 107 mmol/L (98-109); Estimated Glomerular Filt Rate 31; Glucose 147 mg/dL (70-105); Ionized Calcium (POC) 1.12 mmol/L (1.11-1.31); Potassium 4.9 mmol/L (3.5-4.9); Sodium 141 mmol/L (138-146)
[2024-01-23 10:35] LABS: Atypical Lymphocytes Present; Platelet Estimate Adequate (Adequate); Schistocytes None Seen
== END 2024-01-23 10:14 | disposition home or self-care (01) ==
LOC: ANHLAB 10:14
PROVIDERS: PCP Nurse Practitioner Family; Visit Provider Internal Medicine Hematology & Oncology
DX: C91.10 Chronic lymphocytic leukemia of B-cell type not having achieved remission (principal)
CPT/HCPCS: 36415; 80047; 85025

== ENCOUNTER 2024-02-13 13:46 | Outpatient (CLI) | payer OTHER, SELFPAY ==
--- NOTE | ~2024-02-13 | DEXA_ITS ---
Bone Density Report Name: BRADEN EL Age: 78 Sex: Male Ethnicity: White Date of : 1945 Indication: screening for osteoporosis; height loss; Referring Provider: BOBBY HANNA Study: Bone densitometry was performed. Exam Date: February 13, 2024 Accession number: [id number] Bone Density: Region BMD T-score Z-score Classification AP Spine(L1-L4) 1.214 1.1 2.2 Normal Femoral Neck (Left) 0.780 -1.1 0.3 Osteopenia Total Hip (Left) 1.042 0.1 1.0 Normal Femoral Neck (Right) 0.675 -1.9 -0.4 Osteopenia Total Hip (Right) 0.963 -0.5 0.5 Normal Total Hip Mean 1.003 -0.2 0.8 Normal World Health Organization criteria for BMD impression classify patients as: Normal (T-score at or above -1.0), Osteopenia (T-score between -1.0 and -2.5), or Osteoporosis (T-score at or below -2.5). 10-year Fracture Risk(1): Major Osteoporotic Fracture 7.7% Hip Fracture 2.7% Reported Risk Factors: [place] (), Neck BMD=0.675, BMI=33.6 (1) FRAX(R) Version 3.08. Fracture probability calculated for an untreated patient. Fracture probability may be lower if the patient has received treatment. Clinical Information Provided by Patient: Has used the following medications: Vitamin D Patient maximum height was 70 No regular weight bearing exercise Does not regularly consume dairy products Drinks caffeinated beverages Impression: The patient has low bone mass, based on the Right Femoral Neck T-score. The patient has an estimated ten-year risk of hip fracture of 2.7% and an estimated ten-year risk of major fracture of 7.7%, based on the WHO FRAX algorithm. Discussion: BONE DENSITY IS LOW AT ONE OR MORE SKELETAL SITES. This patient's lowest T-score is low at one or more skeletal sites. It meets the World Health Organization's (WHO) criteria for ?low bone mass? (T-score between -1.0 and -2.5). The patient's 10-year risk of fracture as calculated by FRAX is less than the threshold where pharmacological therapy is recommended by the National Osteoporosis Foundation (NOF). However, all treatment decisions require clinical judgment and consideration of individual patient factors, including patient preferences, comorbidities, previous drug use, risk factors not captured in the FRAX model (e.g., frailty, falls, vitamin D deficiency, increased bone turnover, interval significant decline in bone density) and possible under or overestimation of fracture risk by FRAX. The patient should follow a healthful lifestyle (good nutrition with adequate calcium and vitamin D, and appropriate weight-bearing exercise). Follow-Up: Consider repeating this study in 2 to 3 years to reassess this patient's status, or sooner if there is some new clinical indication. Reported by: TAMERA on 02/13/2024 2:24:00 PM. Reviewed, dictated and finalized at location [facility]. [facility]ITALAmanda
== END 2024-02-13 13:47 | disposition home or self-care (01) ==
PROVIDERS: PCP Nurse Practitioner Family; Visit Provider Nurse Practitioner Family
DX: M81.0 Age-related osteoporosis without current pathological fracture (principal); M85.89 Other specified disorders of bone density and structure, multiple sites; Z13.820 Encounter for screening for osteoporosis
CPT/HCPCS: 77080

== ENCOUNTER 2024-10-22 09:19 | Outpatient (CLI) | payer OTHER, SELFPAY ==
[2024-10-22 09:32] LABS: Hematocrit 36.0 % (42.0-52.0); Hemoglobin 11.2 g/dL (14.0-18.0); Immature Granulocyte Percent A 0.6 % (0-0.5); Lymphocytes Absolute Auto 10.47 K/mm3 (0.9-3.2); Mean Corpuscular HGB Conc 31.1 g/dl (32-36); Mean Corpuscular Hemoglobin 32.0 pg (26-34); Mean Corpuscular Volume 102.9 fl (80-100); Nucleated Red Blood Cells Absolute Auto 0.000 K/mm3 (0.0-0.012); Nucleated Red Blood Cells Perc 0.0 % (0.0-0.2); Platelet Count Result 205 k/mm3 (150-375); Red Blood Count 3.50 M/mm3 (4.6-6.20); White Blood Count 18.6 K/mm3 (4.5-10.0)
[2024-10-22 09:36] LABS: Blood Urea Nitrogen 78 mg/dL (8-26); Carbon Dioxide 22 mmol/L (22-30); Chloride 108 mmol/L (98-109); Estimated Glomerular Filt Rate 26; Glucose 105 mg/dL (70-105); Ionized Calcium (POC) 1.17 mmol/L (1.11-1.31); Potassium 5.1 mmol/L (3.5-4.9); Sodium 140 mmol/L (138-146)
[2024-10-22 09:38] LABS: Schistocytes None Seen
[2024-10-22 09:41] LABS: Macrocytosis 1+ (NORMAL)
--- OUTSIDE RECORDS SUMMARY | 2024-10-22 09:41 | XMS_ITS ---
Author Name Luna RODRIGUEZ, MRS. Figueroa npal Address [address] [place] [address] [place] [address] Phone [phone] Organization [facility] Care Team Providers Care Life Trainer Name Role Phone Tanya Carrasco Unavailable [phone] Nasreen Carmona Unavailable [phone] Florinda Caballero Unavailable [phone] Tatiana Steven Unavailable [phone] Josiah Guido Unavailable [phone] NASREEN CARMONA Unavailable [phone] Reason for Referral Not Available Allergies, adverse reactions, alerts Allergen Type Reaction Severity Status Onset Date Codeine Allergy to substance (disorder) nausea vomiting Un known Active N/A Statins Allergy to substance (disorder) muscle pain Unknow n Active N/A History of medication use Medication Class Instructions Start Date End Date Olmesartan Medoxomil 20 mg Tab TAKE 1 TABLET BY MOUTH EVERY DAY 2024-01-31 No Data Available Levothyroxine Sodium 100 MCG Tab TAKE 1 TABLET BY MOUTH EVERY DAY 2024-02-01 No Data Available BD SARAH 2 GEN PEN NDL 32G 4MM No Data Available 4-21 No Data Available Amiodarone 200 mg Tab TAKE 1 TABLET BY M OUTH EVERY DAY IN THE MORNING 2023-11-14 No Data Available Ezetimibe 10 mg Tab TAKE 1 TABLET BY GUS TH EVERY DAY 2024-01-22 No Data Available Furosemide 40 mg Tab TAKE 1 TABLET BY MO UTH EVERY DAY IN THE MORNING 2023-08-25 No Data Available [place]-3 Fish Oil 1200 mg Cap once daily 2024-07-23 No Data Available Aspirin EC 81 mg Tab delayed rel No Data Available 2024-07-23 No Data Available Fluorouracil 5 % Crm No Data Available 2024-07-23 No Data Available Ketoconazole 2 % Crm apply to affected a rupesh daily 2024-07-23 No Data Available HumuLIN 70/30 (70-30) 100 UNIT/ML Suspension Subcutaneous Sliding scale before dinner 2024-07-23 No Data Avai lable Meclizine 25 mg Tab 1 tablet by mouth da sylvia as needed 2024-07-23 No Data Available Problem List Problem Status Onset Date Resolved Date Synopsis HLD (hyperlipidemia) Active 2024-07-23 N/A N/A Hypothyroidism Active 2024-07-23 N/A N/A HTN (hypertension) Active 2024-07-23 N/A N/A Type 2 diabetes mellitus Active 2024-07-23 N/A N/A CAD (coronary artery disease) Active 2024-07-23 N/A N/A Chronic lymphocytic leukemia Active 2024-07-23 N/A N/A Encounters Encounters Type Facility Date of Service Diagnosis/Co mplaint Home visit for evaluation and management of new patient requiring medically appropriate examination and moderate level of medical decision making. If using time, at least 60 minutes total time on [facility] [place] 07/23/2024 Hyperlipidemia, unspecifiedHypothyroidism, unspecifiedEssential (primary) hypertensionType 2 diabetes mellitus without complicationsAthscl heart disease of [place] coronary artery w/o ang pctrsChronic lymphocytic leuk of B-cell type not achieve remisBody mass index (bmi) 38.0-38.9, adult Home visit for evaluation and management of new patient requiring medically appropriate examination and moderate level of medical decision making. If using time, at least 60 minutes total time on [facility] [place] 07/23/2024 Type 2 diabetes cindi itus without complications Vital Signs Date of Collection Vitals 2024-07-23 11:45:00 Height - 175.26 cmWe ight - 117.48 kgBody Mass Index (BMI) - 38.25 kg/m2BP Diastolic - 58.0 mm[Hg]BP Systolic - 142.0 mm[Hg]Heart Rate - 47.0 /minRespiratory Rate - 18.0 /minBody Temperature - 36.28 CelO2 % BldC Oximetry - 97.0 % Social History Sex Male History of Procedures Procedures Service Procedure code Service date Servicing provider Phone# Home visit for evaluation and management of new patient requiring medically appropriate examination and moderate level of medical decision making. If using time, at least [place] [id number] 2024-07-23 No Data Available No Data Availa ble Advance care planning discussion documented in medical record [id number] 2024-07-23 No Data Available No Data Svetlana hughes Functional Status Functional Category Effective Dates continues to drive 2024-07-23 lives with spouse; independent of ADL's 2024-07-23 grab bars in the showers for assistance 2024-07-23 Mental Status Status Date no cognitive issues were noted 2024-06-28 7 Assessments Date of Service Assessments 2024-07-23 11:45:00 HLD (hyperlipidemia) HypothyroidismHTN (hypertension)Type 2 diabetes mellitusCAD (coronary artery disease)Chronic lymphocytic leukemia Plan of Care Date of Service Plans 2024-07-23 11:45:00 chroniccontinue ezet imibe 10 mg once daily and OTC omega fish oilsheart healthy dietchronic; stablecontinue levothyroxine 100 mcg once dailymanaged and monitored by PCPchronic; systolic slightly elevatedcontinue olmesartan 20 mg once dailydiscussed caffeine intake and cutting back on coffeeencouraged to drink more water dailychronic; stableLast A1C 6.9 (per patient)continue Humulin 70/30 sliding scale QPMmonitored and managed by PCPchronic; stablecontinue aspirin 81 mg once daily and ezetimibe 10 mg once dailyheart healthy dietencouraged to stay activechroniclabs being monitored by heme/onc closelyno treatment required at this time Health Concerns Date Concern 2024-07-23 [facility] is a service that involves a physician or advanced practice provider conducting comprehensive assessments in your patient s home or virtually to address crucial areas such as chronic conditions, quality gaps, social concerns, fall risk prevention, and various screenings. Please note that your patient will remain attributed to you even though they are participating in this service. If you have any questions, please reach out directly to our team at the phone number above.Your patient, Josiah Flores, 1945, was seen today for a [facility] visit. Patient read rights and responsibilities and consented to treatment. The purpose of this summary is to update you on the patient's current health status and share any relevant findings from the examination. 2024-07-23 Checks blood sugars once daily at night, last A1C 6.9 2024-07-23 Last seen by renal a benjamin - kidney fxn was checked, per pt they are okay. 2024-07-23 Patient diagnosed wi th borderline leukemia in 2022. Currently not receiving any treatment. Following heme/onc every 6 months.
--- OUTSIDE RECORDS SUMMARY | 2024-10-22 09:41 | XMS_ITS | Clinical Summary ---
Author Organization [facility] [place] [address] Address [address] [place] [address] Care Team Providers Care Graduate Fellow Name Role Phone Jose Miguel Simpson MD Unavailable [phone] Gaye Nicholas MD Unavailable [phone] Isrrael Perez MD Unavailable [phone] Salomon Dowd MD Primary Care Provider [phone] Delmer Muñoz MD Unavailable Allergies Active Allergy Reactions Criticality Noted Date Comments Codeine Nausea & Vomiting,Nausea And Vomiting Low 05/16/2017 remote allergy remote allergy Jyjtbnn-Lyv-Occ Reductase Inhibitors Muscle pain Medium 04/09/2021 Tissue Adhesive Rash Medium 11/15/2021 Dermabond Medications aspirin (ASPIR-81) 81 mg tablet take 1 Tablet by oral route every day 0 0 05/13/19 15 Active cyanocobalami n, vitamin B-12, 500 mcg tablet,disint egratingIndic ations:Preven tion of Vitamin B12 Deficiency Place 500 mcg under the tongue daily 30 each 5 12/15/19 19 026 Active acetaminophen (TYLENOL) 325 mg tablet Take 2 tablets (650 mg total) by mouth every 6 (six) hours as needed for pain Active multivitamin capsule Take 1 capsule by mouth daily before breakfast Active cholecalcifer ol, vitamin D3, (VITAMIN D3 ORAL) Take 1,000 Units by mouth daily before breakfast Active BD Ultra-Fine Micro Pen Needle 32 gauge x 1/4 needle 09/11/19 22 Active Contour Test Strips stripIndicati ons:Type 2 Diabetes nightly Checks before taking nightly insulin 12/18/19 22 Active omega 0-hev-cst-fis h oil 1,000 mg (120 mg-180 mg) capsule Take 1 capsule (1,000 mg total) by mouth every morning Active artificial tears,hyprome llose, 0.3 % drops Administer 1 drop into both eyes as needed (Dry Eye) Active ezetimibe (ZETIA) 10 mg tablet Take 1 tablet (10 mg total) by mouth daily 06/08/19 23 Active meclizine (ANTIVERT) 25 mg tablet Take 1 tablet (25 mg total) by mouth 3 (three) times a day as needed for dizziness Acti ve levothyroxine (SYNTHROID) 50 mcg tablet 1 tablet (50 mcg total) 08/09/19 24 Active furosemide (LASIX) 20 mg tablet Take 1 tablet (20 mg total) by mouth daily Act giuseppe furosemide (LASIX) 20 mg tablet 20 MG ORALLY EVERY MORNING STOP TAKING HYDROCHLORATHIAZIDE WHEN STARTING THIS MEDICATION. 06/27/19 24 Active BD Veronique 2nd Gen Pen Needle 32 gauge x 5/32 needle USED TO TEST BLOOD SUGAR 4XDAY 08/24/19 24 Active Klayesta powder Apply topically 2 (two) times a day 10/27/19 24 Active nystatin-tria mcinolone cream Apply topically 2 (two) times a day as needed 12/11/19 24 Active olmesartan (BENICAR) 20 mg tablet TAKE 1 TABLET BY MOUTH EVERY DAY 90 tablet 3 01/31/20 24 Active amiodarone (PACERONE) 200 mg tablet TAKE 1 TABLET BY MOUTH EVERY DAY IN THE MORNING 90 tablet 1 06/18/19 25 Active insulin lispro (HumaLOG, ADMELOG) 100 unit/mL vial for injection Inject under the skin 3 (three) times a day before meals Active Active Problems Problem Noted Date Diagnosed Date Body mass index 40.0-44.9, adult (CMS/[facility]) 05/31 Bilateral hearing loss 04/11/2023 Mixed hearing loss, bilateral 04/11/2023 Decreased peripheral vision of both eyes 023 Dermatochalasis of both upper eyelids 07/05/2022 Assessment & Plan (09/08/2022 10:07 PM CDT): Braden El is doing well after Bilateral Upper Eyelid Blepharoplasty - Bilateral on 07/07/2022. He demonstrates excellent healing and has been released from my care and has been instructed to continue follow up with Dr. Yoder. Assessment & Plan (07/05/2022 12:33 PM CDT): Right combined dermatochalasis and brow ptosis and left dermatochalasis with symptomatic visual obstruction. Risks, benefits and alternatives were discussed. Risks of surgery included but were not limited to pain, infection, bleeding, scarring, eyelid asymmetry, need for additional procedures, anesthetic morbidity. Following this discussion, the patient wishes to proceed with bilateral upper eyelid blepharoplasty. We will schedule this in the near future. Squamous cell carcinoma in situ 05/25/2022 Overview (05/25/2022): Added automatically from request for surgery [id number] Squamous cell carcinoma of skin of face 11/13/19 22 Cancer Staging:Pathologic stage from 01/03/2022:No Stage Recommended(pT3, cN0, cM0) - Signed by Isrrael Perez MD on 01/03/2022 Overview (11/12/2021): Added automatically from request for surgery [id number] Chronic lymphocytic leukemia 06/07/202110/2022 Aortic stenosis, moderate 08/15/2019 Aortic ejection murmur 04/30/2019 Unilateral recurrent inguina l hernia without obstruction or gangrene 04/19/2019 Overview (04/19/2019): Added automatically from request for surgery [id number] Umbilical hernia without obstruction and without gangrene 04/19/2019 Overview (04/19/2019): Added automatically from request for surgery [id number] Type 2 diabetes mellitus 01/21/2019 HTN (hypertension) 01/21/2019 Hyperlipidemia 01/21/2019 Morbid (severe) obesity due to excess calories 0 11/06/2018 Overview (11/06/2018): Added automatically from request for surgery [id number] Bariatric surgery status 10/19/2018 Overview (10/19/2018): Added automatically from request for surgery [id number] Coronary artery disease invo lving [place] coronary artery of [place] heart without angina pectoris 11/24/2016 S/P coronary artery stent placement 11/24/2016 Presence of coronary angioplasty implant and gra ft 11/24/2016 07/05/2022 Resolved Problems Problem Noted Date Diagnosed Date Resolved Date Morbid obesity with BMI of 5 0.0-59.9, adult (CMS/[facility]) 11/24/2016 10/22/2020 Encounters Date Type Department Care Team Description 09/24/2024 10:00 AM CDT Office Visit [facility] Medicine Otolaryngology Head-Neck Division [facility] [address] [place] [address] Jaquelin Chan PA Squamous cell carcinoma of skin of face (Primary Dx); Squamous cell carcinoma in situ; Bilateral impacted cerumen from Last 3 Months Immunizations Immunization Administration Dates Next Due Influenza, Quad, Adjuvantate d, Intramuscular 12/17/2020,12/12/2019,12/11/2019 Influenza, Trivalent, High D ose, Split, Preservative Free, Intramuscular 12/05/2017,12/04/2017 Influenza, Unspecified 11/12/2018 Pneumococcal Conjugate PCV 13 12/05/2016 Pneumococcal Polysaccharide PPV23 12/12/2019 Tdap 12/05/2016 Surgical History Surgery Date Site/Laterality Comments CARDIAC STENT PLACEMENT 02/28/2016 - 02/26/2017 INGUINAL HERNIA REPAIR 02/27/1969 - 02/26/1970 recurrent involving bladder-pending weight loss for repair UMBILICAL HERNIA REPAIR 02/27/1987 - 02/27/1988 COLONOSCOPY SKIN CANCER EXCISION Top of head; Multiple skin cancer surgery x5 LAPAROSCOPIC PARTIAL GASTRECTOMY 11/28/19 19 - 12/27/2018 sleeve - weight loss surgery ESOPHAGOGASTRODUODENOSCOPY CORONARY ANGIOPLASTY 02/27/2014 - 02/26/2015 LAPAROSCOPIC INGUINAL HERNIA REPAIR 2019 - 09/27/2019 Right PROSTATE SURGERY 02/28/2020 - 02/26/2021 Radation 2021 VASECTOMY 02/27/1977 - 02/26/1978 SKIN CANCER EXCISION 12/01/2021 Right right voodoo APPENDECTOMY 02/27/2022 - 03/29/2022 Medical History Medical History Date Comments Coronary artery disease stent x1 NSTEMI (non-ST elevated myocardial infarction) (HCC) 2015 s/p angioplasty Hypertension Type 2 diabetes mellitus Hyperlipidemia LUZ (obstructive sleep apnea) pe nding CPAP Osteoarthritis Colon polyp Skin cancer UTI (urinary tract infection) Heart disease heart acttack, 2015; stent 2017 Shingles 05/06/2022 Lower right side of abdomen HL (hearing loss) Dizziness Family History Medical History Relation Name Comments Cancer Mother Heydi Richardson Diabetes Mother Heydi Richardson Heart failure Mother Heydi Richardson Congesti ve heart failure; Hypertension Mother Heydi Richardson Obesity Mother Heydi Debra Stroke Mother Heydi Richardson Anesthesia problems Neg Hx Relation Name Status Comments Mother Heydi Richardson Other Social History Tobacco Use Types Packs/Day Years Used Date Smoking Tobacco: Former Pipe Q uit: 2004 Cigars Quit: 2004 Passive Smoke Exposure: Never Smokeless Tobacco: Never Tobacco Cessation:Counseling Given: Not Answered Comments:i smoked a pipe and cigars for over 30 years, no longer smoke at all Alcohol Use Standard Drinks/Week Comments No 0 (1 standard drink = 0.6 oz pur e alcohol) AUDIT-C Answer Date Recorded Q1: How often do you have a drink containing alcohol? Never 09/22/2023 Q2: How many drinks containi ng alcohol do you have on a typical day when you are drinking? Patient does not drink Q3: How often do you have si x or more drinks on one occasion? Never 09/22/2023 Personal Safety Answer Date Recorded Have you ever been in or are you currently in a harmful physical or emotional relationship or is someone making you feel afraid or unsafe? 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 Gender Identity Not on file Sexual Orientation Not on file Occupation Industry Job Start Date Job End Date Retired Not on file Not on file Not on file Obstetrics History Last Filed Vital Signs Vital Sign Reading Time Taken Comments Blood Pressure 126/68 07/05/2024 9:49 AM CDT Pulse 51 07/05/2024 9:49 AM CDT Temperature 36.7 C (98 F) 01/11/2024 10:06 AM TURN DOWN WORKER Respiratory Rate 18 01/11/2024 10:06 AM TURN DOWN WORKER Oxygen Saturation 96% 07/05/2024 9:49 AM CDT Inhaled Oxygen Concentration - - Weight 117.9 kg (260 lb) 09/24/2024 9:37 AM CDT Height 175.3 cm (5' 9) 07/05/2024 9:49 AM CDT Body Mass Index 38.4 07/05/2024 9:49 AM CDT Plan of Treatment Health Maintenance Due Date Last Done Comments Albumin Creatinine Ratio, Urine 1945 Depression Screening 1945 Hepatitis C Screening 1946 Dilated Eye Exam 1946 Foot Exam 1946 Hepatitis B Screening 1964 Zoster Vaccine (1 of 2) 1965 Abdominal Aortic Aneurysm (A AA) Screen 2011 Well Visit 65+ 2011 eGFR 12/15/2019 12/14/2018, 11/27, 11/21/2018 Hemoglobin A1C 02/14/2020 08/15/2019, 04/27, 11/21/2018 Lipid Panel 04/09/2022 04/09/2021, 02/2019, 06/28/2018, Additional history exists Fall Risk Assessment 07/08/2023 07/07/2022 Influenza Vaccine (#1) 2024 , 12/12/2019, 12/11/2019, Additional history exists DTaP/Tdap/Td Vaccine (2 - Td or Tdap) 12/05/2026 12/05/2016 Pneumococcal vaccine 65+ Completed 12/12/2019, 10/2016 Medical Devices Implanted Type Area Education Program Specialist Device Identifier Shelf Expiration Date Model / Serial / Lot [employer]ol Inc/C R Bard [id number] Bard Marlex 6x6in Monofilament Gold Standard Flat Sheet Groin - [id number] Implanted:Qty: 1 on 09/12/2019 by Cem Malcolm MD at [facility] Abdomen [employer] Bard [id number] 03/26/2024 [id number] / / [employer]/C R Bard [id number] Monofilament Soft Lightweight Low Profile Square - [id number] Implanted:Qty: 1 on 09/12/2019 by Andrzej Villarreal MD at [facility] Mesh Abdomen [employer] Bard [id number] 04/26/2024 [id number] / / [id number] Cardiac Stent N/A: Heart Procedures Procedure Name Priority Date/Time Associated Diagnosis Comments POCT LIPID PANEL Routine 04/09/2021 10:2 7 AM TURN DOWN WORKER Coronary artery disease involving [place] coronary artery of [place] heart without angina pectoris POCT HEMOGLOBIN A1C Routine 08/15/2019 1 2:17 PM CDT EGFR Timed 12/14/2018 2:09 AM CDT from Last 3 Months or Most Recently Relevant to Health Maintenance Results * POCT lipid panel (04/09/2021 10:27 AM TURN DOWN WORKER) Cholesterol, POC 172 mg/dL HDL, POC 46 mg/dL Triglycerides, POC 87 mg/dL LDL Cholesterol POC 109 mg/dL Chol/HDL Ratio, POC 3.8 Non-HDL Cholesterol, POC 126 mg/dL Cholesterol Total, POC 172 mg/dL Capillary blood 04/09/2021 1 0:27 AM TURN DOWN WORKER Tina Butts NP POINT OF CARE TEST ORDERA BLES Final Result * (ABNORMAL) POCT hemoglobin A1c (08/15/2019 12:17 PM CDT) Hgb A1C, POC 6.4(H) 4.0 - 6.0 % [facility] Est Average Gluc POC 137 mg/dL [facility] Comment: The ADA recommends reporting an estimated Average Glucose (eAG) with all Hemoglobin A1c results using the equation derived from a study of 507 normal and diabetic adults. Minority populations were underrepresented and children were not included. (Diabetes Care 31:5150-4442, 2008). The eAG is not equivalent to a fasting glucose. Blood specimen (specimen) 08/15/2019 12:17 PM CDT 08/15/2019 12:17 PM CDT us Cem Malcolm MD POINT OF CARE TEST ORDER RYLIE Final Result POLA [facility] [place] [address] * eGFR (12/14/2018 2:09 AM CDT) eGFR >60 mL/min/1.7 3 m2 [facility] Comment: Interpretive Data Reference Interval Normal >/= 90 mL/min/1.73m2 Mildly decreased* 60 - 89 mL/min/1.73m2 Mildly to moderately decreased 45 - 59 mL/min/1.73m2 Moderately to severely decreased 30 - 44 mL/min/1.73m2 Severely decreased 15 - 29 mL/min/1.73m2 Kidney Failure < 15 mL/min/1.73m2 *Relative to young adult level If -Syrian multiply value by 1.16. Estimated glomerular filtration rate is determined by the CKD-EPI equation recommended by the National Kidney Foundation (KDIGO 2012 Clinical Practice Guideline for the Evaluation and Management of Chronic Kidney Disease. Kidney Intnl Suppl Feb 2012;3:1). The CKD-EPI equation should not be used for patients with unstable renal function and has not been validated in children and those over 70. Current interpretive data was last reviewed 2015. Blood specimen (specimen) 12/14/2018 2:09 AM CDT 12/14/2018 3:58 AM CDT us Lavon Atkins MD LAB BLOOD ORDERABLES Final Resu lt [facility] [id number] [facility] [place] [address] from Last 3 Months or Most Recently Relevant to Health Maintenance Insurance [facility] [facility] Member Subscriber Plan / Payer ( fective 2011-Present) Name:BRADEN EL Relation to Subscriber:Self Name:Braden El Payer ID:[id number] ([facility]) Type:MEDICARE RISK OTHER Address: [place] [id number] [facility] [place] [address] [facility] Member Subscriber Plan / Payer (Ef fective 2011-Present) Name:BRADEN EL Relation to Subscriber:Self Name:Braden El Payer ID:[id number] ([facility]) Type:MEDICARE RISK OTHER Address: [address] [facility] Advance Directives For more information, please contact: [phone] * Full Code (Latest Code Status on File) Date Activated Date Inactivated Comments 09/12/2019 7:12 PM 09/13/2019 9:33 PM * Full Code Date Activated Date Inactivated Comments 12/12/2018 4:47 PM 12/14/2018 7:06 PM * Full Code Date Activated Date Inactivated Comments 10/25/2018 10:32 AM 10/25/2018 3:33 PM Care Teams Graduate Fellow Relationship Specialty Start Date End Date Salomon Dowd MD [address] [place] [address] PCP - General Family Practice 07/07/22 Jose Miguel Simpson MD [address] [facility] [place] [address] Referring Physician Dermatology 11/11/21 Gaye Nicholas MD [address] [place] [address] Consulting Physician Dermatology 11/11/21 Isrrael Perez MD [address] [place] [address] Radiation Oncologist Radiation Oncology 01/03/22 Delmer Muñoz MD [address] [facility], [address] [address] Consulting Physician Pain Management 11/23/23
--- OUTSIDE RECORDS SUMMARY | 2024-10-22 09:41 | XMS_ITS | Encounter Summary ---
Author Organization [facility] Address [address] [facility] [address] [place] [address] Care Team Providers Care Biomedical Specialist Name Role Phone Talha Huffman MD Primary Care Provider [phone] Talha Huffman MD Primary Care Provider [phone] Rambo Holland DO Primary Care Provider [phone] Jose Migule Simpson MD Unavailable [phone] Gaye Nicholas MD Unavailable [phone] Isrrael Perez MD Unavailable Leena Hodge MD Primary Care Provider [phone] Salomon Dowd MD Primary Care Provider [phone] Delmer Muñoz MD Unavailable Encounter Details Date Type Department Care Team (Late st Contact Info) Description 03/31/2016 Orders Only [facility] ProviderRichy MD [address] [place] [address] Social History Tobacco Use Types Packs/Day Years Used Date Smoking Tobacco: Former Alcohol Use Standard Drinks/Week Comments No 0 (1 standard drink = 0.6 oz pur e alcohol) Sex and Gender Information Value Date Recorded Sex Assigned at Not on file Legal Sex Male 3:34 AM 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 us Historical Provider [facility] LUANNE MAR Final Result documented in this encounter Visit Diagnoses Not on filedocumented in this encounter Care Teams Biomedical Specialist Relationship Specialty Start Date End Date Talha Huffman MD PCP - General 05/27/16 02/01/18 Talha Huffman MD PCP - General 03/24/16 05/26/16 Rambo Holland DO PCP - General Internal Medicine 02/02/18 03/28/22 Leena Hodge MD [address] [place], [place] [id number] PCP - General Internal Medicine 03/29/22 07/06/22 Salomon Dowd MD [address] [place] [address] PCP - General Family Practice 07/07/22 Jose Miguel Simpson MD [address] [facility] [address] Referring Physician Dermatology 11/11/21 Gaye Nicholas MD [address] [place] [address] Consulting Physician Dermatology 11/11/21 Isrrael Perez MD [address] [place] [address] Radiation Oncologist Radiation Oncology 01/03/22 Delmer Muñoz MD [address] [facility], [address] [address] Consulting Physician Pain Management 11/23/23 documented as of this encounter
--- OUTSIDE RECORDS SUMMARY | 2024-10-22 09:41 | XMS_ITS ---
Author Organization [facility] [place] [address] Address [address] [place] [address] Care Team Providers Care Otr Owner Operator Truck Driver Name Role Phone Jose Miguel Simpson MD Unavailable [phone] Gaye Nicholas MD Unavailable [phone] Isrrael Perez MD Unavailable [phone] Salomon Dowd MD Primary Care Provider [phone] Delmer Muñoz MD Unavailable Active Problems Problem Noted Date Diagnosed Date Body mass index 40.0-44.9, adult ([facility]) 05/31 Bilateral hearing loss 04/11/2023 Mixed hearing loss, bilateral 04/11/2023 Decreased peripheral vision of both eyes 023 Dermatochalasis of both upper eyelids 07/05/2022 Assessment & Plan (09/08/2022 10:07 PM CDT): Josiah Flores is doing well after Bilateral Upper Eyelid [...] (05/25/2022): Added automatically from request for surgery [id number] Squamous cell carcinoma of skin of face 11/13/19 22 Cancer Staging:Pathologic stage from 01/03/2022:No Stage Recommended(pT3, cN0, cM0) - Signed by Isrrael Perez MD on 01/03/2022 Overview (11/12/2021): Added automatically from request for surgery [id number] Chronic lymphocytic leukemia 06/07/202110/2022 Aortic stenosis, moderate 08/15/2019 Aortic ejection murmur 04/30/2019 Unilateral recurrent inguina l hernia without obstruction or gangrene 04/19/2019 Overview (04/19/2019): Added automatically from request for surgery [id number] Umbilical hernia without obstruction and without gangrene 04/19/2019 Overview (04/19/2019): Added automatically from request for surgery [id number] Type 2 diabetes mellitus 01/21/2019 HTN (hypertension) 01/21/2019 Hyperlipidemia 01/21/2019 Morbid (severe) obesity due to excess calories 0 11/06/2018 Overview (11/06/2018): Added automatically from request for surgery [id number] Bariatric surgery status 10/19/2018 Overview (10/19/2018): Added automatically from request for surgery [id number] Coronary artery disease invo lving [place] coronary artery of [place] heart without angina pectoris 11/24/2016 S/P coronary artery stent placement 11/24/2016 Presence of coronary angioplasty implant and gra ft 11/24/2016 07/05/2022 Current Treatment and Therapy Plans No current plan information found. Past Treatment and Therapy Plans No past plan information found. Radiation Treatments * Course [id number]/17/2022 - 03/04/2022 Treatment Period Energy Fraction Dose Fractions Total Dose Plans Planned R HEAD & NECK 01/17/2022 - 03/04/2022 200 30 / 6,000 Reference Points Delivered [id number] 01/17/2022 - 03/04/2022 6,000 Lifetime Dose Tracking * Chemical Lifetime Dose Automatic Entry Manual Entr y Fluoro Time 1.2 minutes 1.2 minutes 0 minutes Air kerma at the reference point (Ka,r) 72.61 mGy 7 2.61 mGy 0 mGy DLP 1,974.3 mGycm 1,974.3 mGycm 0 mGycm Resolved Problems Problem Noted Date Diagnosed Date Resolved Date Morbid obesity with BMI of 5 0.0-59.9, adult (CMS/HCC) 11/24/2016 10/22/2020
--- OUTSIDE RECORDS SUMMARY | 2024-10-22 09:41 | XMS_ITS | Encounter Summary ---
Author Organization [facility] Address [address] [place] [address] Phone Care Team Providers Care Construction Checker Name Role Phone Skyler Rambobrittani TAPIA Primary Care Provider [phone] Jose Miguel Simpson MD Unavailable Gaye Nicholas MD Unavailable [phone] Isrrael Perez MD Unavailable [phone] Leena Hodge MD Primary Care Provider [phone] Salomon Dowd MD Primary Care Provider [phone] Delmer Muñoz MD Unavailable Encounter Details Date Type Department Care Team (Late st Contact Info) Description 04/09/2019 Orders Only [facility] Scanning, Provider Social History Tobacco Use Types Packs/Day Years Used Date Smoking Tobacco: Former Cigarettes 0.3 37 1 968 - 2005 Pipe Cigars Smokeless Tobacco: Never Comments:pipes/ cigars Alcohol Use Standard Drinks/Week Comments No 0 (1 standard drink = 0.6 oz pur e alcohol) Sex and Gender Information Value Date Recorded Sex Assigned at Not on file 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 Gender Identity Not on file Sexual Orientation Not on file documented as of this encounter Plan of Treatment Not on file documented as of this encounter Procedures Procedure Name Priority Date/Time Associated Diagnosis Comments SCAN - LABS 04/09/2019 documented in this encounter Results * SCAN - LABS (04/09/2019) us Provider Scanning Final Result documented in this encounter Visit Diagnoses Not on filedocumented in this encounter Care Teams Construction Checker Relationship Specialty Start Date End Date Rambo Holland DO PCP - General Internal Medicine 02/02/18 03/28/22 Leena Hodge MD [address] [place] [address] PCP - General Internal Medicine 03/29/22 07/06/22 Salomon Dowd MD [address] [place] [address] PCP - General Family Practice 07/07/22 Jose Miguel Simpson MD [address] [facility] [place] [address] Referring Physician Dermatology 11/11/21 Gaye Nicholas MD [address] [place] [address] Consulting Physician Dermatology 11/11/21 Isrrael Perez MD [address] [place] [address] Radiation Oncologist Radiation Oncology 01/03/22 Delmer Muñoz MD [address] [facility], [address] [address] Consulting Physician Pain Management 11/23/23 documented as of this encounter
--- OUTSIDE RECORDS SUMMARY | 2024-10-22 09:41 | XMS_ITS | Encounter Summary ---
Author Organization [facility] Healthcare Address [address] [place] [address] Care Team Providers Care Industrial Real Estate Agent Name Role Phone Rambo Holland DO Primary Care Provider [phone] Jose Miguel Simpson MD Unavailable [phone] Gaye Nicholas MD Unavailable [phone] Isrrael Perez MD Unavailable [phone] Leena Hodge MD Primary Care Provider [phone] Salomon Dowd MD Primary Care Provider [phone] Delmer Muñoz MD Unavailable Encounter Details Date Type Department Care Team (Late st Contact Info) Description 12/14/2018 Documentation [facility] Case Management [id number] [place] [address] Edelmira Castañeda RN Social History Tobacco Use Types Packs/Day Years Used Date Smoking Tobacco: Former Cigarettes 0.3 37 1 968 - 2005 Pipe Cigars Smokeless Tobacco: Never Comments:pipes/ cigars Alcohol Use Standard Drinks/Week Comments No 0 (1 standard drink = 0.6 oz pur e alcohol) Sex and Gender Information Value Date Recorded Sex Assigned at Not on file 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 Gender Identity Not on file Sexual Orientation Not on file documented as of this encounter Plan of Treatment Not on file documented as of this encounter Visit Diagnoses Not on filedocumented in this encounter Care Teams Industrial Real Estate Agent Relationship Specialty Start Date End Date Rambo Holland DO PCP - General Internal Medicine 02/02/18 03/28/22 Leena Hodge MD [address] [place] [address] PCP - General Internal Medicine 03/29/22 07/06/22 Salomon Dowd MD [address] [place] [address] PCP - General Family Practice 07/07/22 Jose Miguel Simpson MD [address] [place] [address] Referring Physician Dermatology 11/11/21 Gaye Nicholas MD [address] [place] [address] Consulting Physician Dermatology 11/11/21 Isrrael Perez MD [address] [place] [address] Radiation Oncologist Radiation Oncology 01/03/22 Delmer Muñoz MD [address] [facility] [address] Consulting Physician Pain Management 11/23/23 documented as of this encounter
--- OUTSIDE RECORDS SUMMARY | 2024-10-22 09:41 | XMS_ITS | Clinical Summary ---
Author Organization [facility] Address [address] [place] [id number] Phone Care Team Providers Care Billet Examiner Name Role Phone Rambo Holland DO Primary Care Provider [phone] Allergies Active Allergy Reactions Criticality Noted Date Comments Bacitracin-Polymyxin B Other (see comments) Low 09/07/2020 Other reaction(s): Other (See Comments) LIQUID BAND AID LIQUID BAND AID Codeine Nausea And Vomiting Low 05/16/2017 remote allergy remote allergy remote allergy Statins muscle pain Medium 04/09/2021 Medications amiodarone (PACERONE) 200 MG tablet 05/13/2021 Active amLODIPine (NORVASC) 5 MG tablet 06/01/2021 Active aspirin (ST CHUN) 81 MG EC tablet 81 mg 05/12/2014 Active ezetimibe (ZETIA) 10 MG tablet 07/06/2021 Active hydroCHLOROthia zide (MICROZIDE) 12.5 MG capsule 07/06/2021 Act giuseppe NovoLIN 70/30 FlexPen (70-30) 100 UNIT/ML injection 05/06/2021 Active Multiple Vitamin (multivitamin) capsule Take 1 capsule by mouth daily Active olmesartan (BENICAR) 20 MG tablet 07/01/2021 Active omega-3 (FISH OIL) 1200 MG capsule Take 1 capsule by mouth daily Active BD Pen Needle Micro U/F 32G X 6 MM misc 09/10/2021 Active Active Problems Problem Noted Date Diagnosed Date Chronic lymphoid leukemia, disease 06/07/2021 Moderate aortic valve stenosis 08/15/2019 Aortic ejection murmur 04/30/2019 Recurrent inguinal hernia 04/19/2019 Overview (07/20/2021): Added automatically from request for surgery [id number] Umbilical hernia 04/19/2019 Overview (07/20/2021): Added automatically from request for surgery [id number] Hyperlipidemia 01/21/2019 Hypertensive disorder 01/21/2019 Type 2 diabetes mellitus 01/21/2019 Morbid (severe) obesity due to excess calories 0 11/06/2018 Overview (07/20/2021): Added automatically from request for surgery [id number] Bariatric surgery status 10/19/2018 Overview (07/20/2021): Added automatically from request for surgery [id number] Coronary atherosclerosis 11/24/2016 History of placement of stent for coronary arter y disease 11/24/2016 Immunizations Immunization Administration Dates Next Due Influenza, Unspecified 11/12/2018 Family History Medical History Relation Comments Cancer Mother Diabetes mellitus Mother Heart disease Mother Hypertension Mother Relation Status Comments Mother Social History Tobacco Use Types Packs/Day Years Used Date Smoking Tobacco: Former Cigarettes 1 20 Pipe Smokeless Tobacco: Never Alcohol Use Standard Drinks/Week Comments Never 0 (1 standard drink = 0.6 oz pur e alcohol) Sex and Gender Information Value Date Recorded Sex Assigned at Not on file Legal Sex Male 11:04 AM MDT Gender Identity Not on file Sexual Orientation Not on file Last Filed Vital Signs Vital Sign Reading Time Taken Comments Blood Pressure 130/72 10/27/2021 8:53 AM CDT Pulse - - Temperature 36 C (96.8 F) 10/27/2021 8:53 AM CDT Respiratory Rate 19 10/27/2021 8:53 AM CDT Oxygen Saturation - - Inhaled Oxygen Concentration - - Weight 119 kg (262 lb) 10/27/2021 8:53 AM CDT Height 175.3 cm (5' 9) 10/27/2021 8:53 AM CDT Body Mass Index 38.69 10/27/2021 8:53 AM CDT Plan of Treatment Health Maintenance Due Date Last Done Comments Pneumococcal PPSV23/PCV13 65 + Years / Low and Medium Risk (1 of 2 - PCV) 1996 Influenza Vaccine (#1) 2024 11/12/2018 Insurance [employer] H[employer] Care Teams Billet Examiner Relationship Specialty Start Date End Date Rambo Holland DO [address] [place] [address] PCP - General Internal Medicine 07/08/21
--- OUTSIDE RECORDS SUMMARY | 2024-10-22 09:41 | XMS_ITS | Clinical Summary ---
Author Organization [facility] Address [address] [place] [address] Care Team Providers Care Consulting Practice Manager Name Role Phone Salomon Dowd MD Primary Care Provider [phone] Allergies Active Allergy Reactions Criticality Noted Date Comments Bacitracin Zinc-Polymyxin B Other (See Comments) 09/07/2020 LIQUID BAND AID Codeine Nausea and Vomiting Low 05/16/2017 remote allergy Wlpjwjs-Wkk-Bni Reductase Inhibitors Muscle Pain Medium 04/09/2021 Medications amiodarone (CORDARONE) 200 mg tablet Take 200 mg by mouth. 03/20 21 Active blood sugar diagnostic (Ascensia CONTOUR) Strip TEST QID 10/27/19 19 Active insulin NPH-regular (HUMULIN 70-30,NOVOLIN 70-30) 100 unit/mL (70-30) vial Inject 10 Units by subcutaneous injection 2 times daily. 12/15/19 19 Active irbesartan-hy droCHLOROthia zide (AVALIDE) 300-12.5 mg tablet Take 1 Tablet by mouth. 10/10/19 19 Active multivitamin, calcium,rn examiner als,iron,foli c acid (THERA-M,THER A-M PLUS) 9 mg iron-400 mcg Tablet Take 1 Tablet by mouth 2 times daily. 12/15/19 19 Active Fish Oil-[place]-3 Fatty Acids 360-1,200 mg Capsule Take 1 Capsule by mouth. Active Multivitamin Capsule Take 1 Capsule by mouth daily. Active furosemide (LASIX) 20 mg tablet 20 MG ORALLY EVERY MORNING STOP TAKING HYDROCHLORATHIAZIDE WHEN STARTING THIS MEDICATION. 06/27/19 24 Active meclizine (ANTIVERT) 25 mg tablet Take 25 mg by mouth. Active ezetimibe (ZETIA) 10 mg tablet Take 10 mg by mouth daily. Active aspirin (ECOTRIN EC) 81 mg Tablet, Delayed Release (E.C.) Take 81 mg by mouth daily. Active Insulin [place], Disposable, (UltiCare Pen Needle) 31 gauge x 1/4 Needle by [facility].(Non-Drug; Combo Route) route daily. Active levothyroxine 50 mcg tablet Take 50 mcg by mouth daily in the morning. Act giuseppe fluorouraciL (EFUDEX) 5 % Cream Apply to affected area 2 times daily. Active Active Problems Problem Noted Date Diagnosed Date CLL (chronic lymphocytic leukemia) 06/07/2021 Resolved Problems Problem Noted Date Diagnosed Date Resolved Date Lymphocytosis 09/07/2020 06/07/2021 Encounters Date Type Department Care Team Description 10/15/2024 External Device Data ST[facility] ABSTRACTION Provider, Abstract 10/15/2024 External Device Data [facility] ABSTRACTION Provider, Abstract 09/11/2024 External Device Data [facility] ABSTRACTION Provider, Abstract 09/10/2024 External Device Data [facility] ABSTRACTION Provider, Abstract 08/27/2024 External Device Data [facility] ABSTRACTION Provider, Abstract from Last 3 Months Family History Medical History Relation Name Comments Healthy Daughter Diabetes Mother Heart Disease Mother Healthy Son Relation Name Status Comments Daughter Alive Mother Son Alive Social History Tobacco Use Types Packs/Day Years Used Date Smoking Tobacco: Former Pipe Q uit: 2004 Smokeless Tobacco: Never Tobacco Cessation:Counseling Given: Not Answered Comments:quit in 2004 Alcohol Use Standard Drinks/Week Comments Never 0 (1 standard drink = 0.6 oz pur e alcohol) Sex and Gender Information Value Date Recorded Sex Assigned at Not on file Legal Sex Male 9:34 AM CDT Gender Identity Not on file Sexual Orientation Not on file Last Filed Vital Signs Vital Sign Reading Time Taken Comments Blood Pressure 127/59 01/23/2024 11:00 AM PRODUCTION FINISHER Pulse 55 01/23/2024 10:50 AM PRODUCTION FINISHER Temperature 35.9 C (96.7 F) 07/19/2023 9:36 AM CDT Respiratory Rate 15 01/23/2024 10:5 0 AM PRODUCTION FINISHER Oxygen Saturation 93% 01/23/2024 10: 50 AM PRODUCTION FINISHER Inhaled Oxygen Concentration - - Weight 119.2 kg (262 lb 12.8 oz) 2023 10:50 AM PRODUCTION FINISHER Height 175.3 cm (5' 9) 06/07/2021 1:15 PM CDT Body Mass Index 38.81 06/07/2021 1:15 PM CDT Plan of Treatment Upcoming Encounters Date Type Department Care Team (Late st Contact Info) Description 10/22/2024 10:15 AM CDT Office Visit [facility] - [place] [address] [place] [address] Eb Vincent MD [address] [place] [address] Arrived Health Maintenance Due Date Last Done Comments DIABETES ANNUAL FOOT EXAM 1964 DIABETES ANNUAL RETINAL EXAM 1964 DIABETES MICROALBUMIN ANNUAL SCREEN 1964 LDL CHOLESTEROL ANNUAL 1964 ZOSTER VACCINE (1 of 2) 1965 DIABETES HBA1C Q 6 MONTHS 02/14/2020 08/15/2019, RSV VACCINE (60+ or ) (1 - 1-dose 75+ series) 2021 Medicare Advantage ([place]) Preventative Visit/Annual Wellness Visit 02/28/2024 INFLUENZA VACCINE (#1) 2024 , 12/17/2020, 12/12/2019, Additional history exists DTAP/TDAP/TD VACCINES (2 - T d or Tdap) 12/05/2026 02/23/2023, 12/05/2016 PNEUMOCOCCAL VACCINE 50+ YEARS Completed 12/12/2019 , 12/05/2016 [place] [address] [facility] [place] [address] [facility] Address: [place] [address] Care Teams Consulting Practice Manager Relationship Specialty Start Date End Date Salomon Dowd MD PCP - General Family Practice 07/18/22
== END 2024-10-22 09:20 | disposition home or self-care (01) ==
LOC: ANHLAB 09:20
PROVIDERS: PCP Family Medicine; Visit Provider Internal Medicine Hematology & Oncology
DX: C91.10 Chronic lymphocytic leukemia of B-cell type not having achieved remission (principal)
CPT/HCPCS: 36415; 80047; 85025

== ENCOUNTER 2024-11-06 09:49 | Outpatient (RCR) | payer OTHER, SELFPAY ==
[2024-11-06 10:00] VITALS: BMI 38.0
--- NOTE | 2024-11-06 10:07 | WNDPHOTO ---
PHOTO ONLY - See Nursing Notes and/ or assessments for documentation.
== END 2025-01-21 11:57 | disposition home or self-care (01) ==
LOC: ANHWOC 09:49
PROVIDERS: PCP Family Medicine; Visit Provider Nurse Practitioner Family
DX: T14.8XXA Other injury of unspecified body region, initial encounter (principal)
CPT/HCPCS: 99213; G0463